=== PATIENT | male | born 1960 | race Caucasian/White ===

== ENCOUNTER → 2020-04-05 11:44 | Outpatient (BNVA) | payer BC, SELFPAY | PROVIDERS: PCP Family Medicine; Visit Provider Internal Medicine | DX: Z76.89 Persons encountering health services in other specified circumstances (principal) ==

== ENCOUNTER 2020-06-10 11:12 | Emergency (ER) | payer BC, SELFPAY ==
[2020-06-10 11:38] VITALS: BP 168/92; BP 180/87; PULSE 92; PULSE 94; RESP 16; TEMP 37; O2SAT 97; O2SAT 99; BMI 51.7
--- NOTE | 2020-06-10 11:53 | XR_ITS ---
EXAMINATION: XR ANKLE, BILATERAL CLINICAL INFORMATION: Status post fall with bilateral ankle pain and swelling COMPARISON: None TECHNIQUE: 3 views of each ankle performed. FINDINGS: RIGHT ANKLE: Moderate soft tissue swelling is identified anteriorly. A lucency is seen through the lateral aspect of the fibula in keeping with a nondisplaced distal fibular fracture. Corticated densities are seen at the medial malleolus likely related to prior trauma. Posterior calcaneal spurs are demonstrated. LEFT ANKLE: Moderate lateral and anterior soft tissue swelling is identified. Ankle mortise is symmetric. On the AP view only, there is a subtle lucency over the distal fibula which is nonspecific but a occult fracture is not excluded. Additionally there is a large corticated density at the medial malleolus and a small corticated density at the lateral malleolus presumably reflective of prior trauma. Talar dome is unremarkable. Posterior and plantar calcaneal spurs are seen. XR/XR ankle RT min 3V IMPRESSION: Moderate soft tissue swelling bilaterally. Right lateral malleolus demonstrates a nondisplaced oblique fracture. Evidence of corticated nonacute ossific densities at the medial malleolus. Left ankle shows no definite acute fracture. An equivocal lucency is seen over the distal fibula on one view only. Corticated densities are seen adjacent to the malleoli presumably reflective of prior trauma. Follow-up radiographs can be obtained as appropriate.
--- NOTE | 2020-06-10 11:53 | XR_ITS ---
EXAMINATION: XR ANKLE, BILATERAL CLINICAL INFORMATION: Status post fall with bilateral ankle pain and swelling COMPARISON: None TECHNIQUE: 3 views of each ankle performed. FINDINGS: RIGHT ANKLE: Moderate soft tissue swelling is identified anteriorly. A lucency is seen through the lateral aspect of the fibula in keeping with a nondisplaced distal fibular fracture. Corticated densities are seen at the medial malleolus likely related to prior trauma. Posterior calcaneal spurs are demonstrated. LEFT ANKLE: Moderate lateral and anterior soft tissue swelling is identified. Ankle mortise is symmetric. On the AP view only, there is a subtle lucency over the distal fibula which is nonspecific but a occult fracture is not excluded. Additionally there is a large corticated density at the medial malleolus and a small corticated density at the lateral malleolus presumably reflective of prior trauma. Talar dome is unremarkable. Posterior and plantar calcaneal spurs are seen. XR/XR ankle LT min 3V IMPRESSION: Moderate soft tissue swelling bilaterally. Right lateral malleolus demonstrates a nondisplaced oblique fracture. Evidence of corticated nonacute ossific densities at the medial malleolus. Left ankle shows no definite acute fracture. An equivocal lucency is seen over the distal fibula on one view only. Corticated densities are seen adjacent to the malleoli presumably reflective of prior trauma. Follow-up radiographs can be obtained as appropriate.
[2020-06-10] MEDS: Acetaminophen 325 MG TABLET 975 MG PO (12:22)
--- NOTE | 2020-06-10 12:43 | ED_ITS ---
HPI - Fall General Chief Complaint: Fall Stated Complaint: fall, bilateral ankle pain Time Seen by Provider: 06/10/20 11:39 Source: patient and EMS Mode of arrival: EMS Limitations: no limitations History of Present Illness HPI Narrative: 59-year-old male presenting to the ED after he had a mechanical fall at home this morning at around 07:45 with bilateral ankle pain/swelling. He reports that he was walking on the steps and must of missed a step and fell forward twisting his both ankles. He called EMS and initially refused transport at that time due to he was able to walk after EMS helped him up from the floor and he went to run some errands. Although while running errands he had worsening pain to bilateral ankles therefore he decided to call EMS and come here to the ER. Denies any head injury or loss of consciousness. Reports he is on aspirin no other blood thinners. Denies any other injuries complaints or concerns. Denies preceding symptoms prior to the fall. Related Data Previous Rx's Medication Instructions Recorded theophylline 300 mg 300 mg PO Q12H #60 tab 03/20/20 tablet,extended release,12 hr albuterol sulfate 90 mcg/actuation 2 puff INHALATION Q4-6H PRN #18 g 04/05/20 aerosol inhaler apple cider vinegar 500 mg tablet 500 mg PO DAILY #30 tab 04/05/20 aspirin 81 mg tablet,delayed 81 mg PO DAILY #30 tab 04/05/20 release atorvastatin 10 mg tablet 10 mg PO DAILY #30 tab 04/05/20 fish, borage, flaxseed oils-omega 1 cap PO DAILY #30 cap 04/05/20 3,6,9 cb #1 400 mg-400 mg-400 mg cap ginseng 250 mg capsule 250 mg PO BID #60 cap 04/05/20 lisinopril 10 mg tablet 10 mg PO DAILY #30 tab 04/05/20 lysine 1,000 mg tablet 1,000 mg PO DAILY #30 tab 04/05/20 montelukast 10 mg tablet 10 mg PO DAILY #30 tab 04/05/20 multivitamin 1 tab PO DAILY #30 tab 04/05/20 nystatin 100,000 unit/mL oral 100,000 unit PO QID #250 ml 04/05/20 suspension salmeterol 50 mcg/dose blister 1 inh INHALATION BID #60 ea 11/05/20 powder for inhalation sildenafil 100 mg tablet 100 mg PO DAILY PRN #10 tab 04/05/20 testosterone 20.25 mg/1.25 gram 4 pump TOPICAL DAILY #75 g 04/05/20 (1.62 %) transdermal gel pump tiotropium bromide 2.5 2 puff INHALATION DAILY #4 g 04/05/20 mcg/actuation mist for inhalation acetaminophen-codeine 1 tab PO Q8H PRN #14 tab 06/10/20 ibuprofen 800 mg PO Q8H PRN #14 tab 06/10/20 Allergies Allergy/AdvReac Type Severity Reaction Status Date / Time No Known Allergies Allergy Verified 04/05/20 11:56 [No Known Allergies*] Review of Systems Review of Systems: Constitutional : No Fever, No Chills ENT/Mouth : No Ear Pain, No Hoarseness, No sore throat Eyes: No Eye Pain, No Swelling, No Redness, No Foreign Body Cardiovascular : No Chest Pain, No SOB Respiratory : No Cough, No Dyspnea Gastrointestinal : No Nausea, No Vomiting, No Diarrhea, No abdominal Pain Genitourinary : No Dysuria, No Hematuria Musculoskeletal : + joint pain/swelling, No Myalgias Skin : No Skin lacerations, No rash Neuro : No Weakness, No Numbness, No Paresthesias, No Loss of Consciousness, No Dizziness, No Headache Psych : No Anxiety/Panic, No Depression Heme/Lymph: no easy bruising, no Lymphadenopathy Endocrine : No Polyuria, No Polydipsia Yes all other systems are reviewed and are negative PMFSH Past Medical History Attestation statement: The following information was validated with the patient. Medical History Back pain COPD (chronic obstructive pulmonary disease) Emphysema lung Erectile disorder due to medical condition in male HLD (hyperlipidemia) HTN (hypertension) Hypogonadism male Low serum testosterone Morbid obesity ALIN (obstructive sleep apnea) ALIN on CPAP Social History Social History Smoking Status: Current every day smoker Cigarettes Per Day: 5 Advance Directives: No Advance Directives Information Provided: No Physical Exam Vital Signs: Vital Signs: Last Vital Signs Temp 98.6 F 06/10/20 11:38 Pulse 94 06/10/20 11:38 Resp 16 06/10/20 11:38 BP 180/87 H 06/10/20 11:38 Pulse Ox 97 06/10/20 11:38 Body Mass Index 51.7 Vital signs have been reviewed as normal and appeared to be correct. Blood pressure hypertensive. Heart rate normal. Respiration rate normal. Temperature normal. Oxygen saturation normal. Appearance: Alert. Oriented X3. No acute distress. Head: Normal external exam. Normocephalic. Atraumatic. Able to rotate head bilaterally. Eyes: PERRLA. EOMI. No nystagmus noted. Conjunctiva and sclera normal. Eyelids normal. Corneal reflex normal. ENT: Hearing normal. Pharynx normal. Moist mucous membranes. No trismus noted. No drooling noted. No muffled voice noted. Neck: Normal inspection. Neck supple. FROM. No adenopathy. No meningeal signs. CVS: Normal heart rate and rhythm. Heart sound normal. No murmurs noted. Pulses normal throughout. Respiratory: No respiratory distress. Painless inspiration. Breath sounds normal. No wheezes/rales/rhonchi noted. Chest nontender. No accessory muscle usage noted or decreased air movement noted. Back: Full range of motion noted. Skin: Skin warm and dry. Normal skin color. Normal skin turgor. No rashes/lesions/lacerations noted. Extremities: + 2 b/l lower extremity edema. No calf tenderness noted. To right ankle patient has tenderness to palpation of the dorsal/lateral aspect with moderate soft tissue swelling. No obvious deformities. Full range of motion noted. No laxity noted. To the left ankle patient has tender to palpation of the dorsal lateral aspect with moderate soft tissue swelling. No obvious defor mities. Patient has full range of motion no laxity noted to the left ankle. Otherwise all other Extremities exhibit normal range of motion and nontender. Able to shrug shoulders bilaterally and keep up against resistance. Neuro: Oriented X 3. No motor deficit. No sensory deficit. Reflexes normal. Moving all extremities. No focal motor deficits. Cranial nerves II-XI intact bilaterally. Facial strength normal. Normal cognition. Speech normal. Strength 5/5 throughout. Muscle tone normal throughout. Course Course Course Narrative: 12:45pm - 59-year-old male presenting to the ED after he had a mechanical fall at home this morning at around 07:45 with bilateral ankle pain/swelling. - Concern for fracture vs sprain vs CHF Plan: Labs including BNP, bilateral ankle x-rays. Provide 975 mg of Tylenol as patient refused anything stronger then re-evaluate. Reevaluation(s) Reevaluation #1: - it appears patient has right lateral malleolus nondisplaced oblique fracture. Left ankle shows no definite acute fracture although lucency seen over distal fibula on only one view and patient is tender there and has moderate soft tissue swelling and denies any previous injuries therefore most likely patient has bilateral ankle fractures. I consulted with GOPAL Pineda from orthopedics and she recommending placing the patient into walking boots and provide symptomatic treatment along with weight-bearing as tolerated and to follow up with them within a week. I offered the patient short-term rehab although he reports that he will be fine at home with the bilateral walking boot along with symptomatic treatment. Therefore awaiting labs at this time. Time: 13:06 Reevaluation #2: - patient has an elevated white blood cell count [id number] although no signs of infection most likely reactive although I instructed the patient to have this followed up with primary care provider within the next few weeks and he reported to me he will be having blood work in July.Normal limits including BNP. Will DC home with bilateral walking boot/crutches and symptomatic treatment along with a referral to Orthopedics and to follow up with primary care provider. Patient understands agrees the plan. Time: 13:54 MDM - Fall Medical Records Attestation: I reviewed the patient's medical records. Lab Data Attestation: I reviewed the patient's lab results. Result diagrams: 06/10/20 12:46 06/10/20 12:46 Labs: Lab Results 06/10/20 06/10/20 06/10/20 Range/Units 12:46 12:46 12:46 WBC 19.0 H (4.8-10.8) X10*3/uL RBC 6.06 H (4.60-5.80) X10*6/uL Hgb 13.8 L (14.0-18.0) g/dl Hct 45.3 (42-52) % MCV 74.8 L (80-98) fL MCH 22.8 L (27.0-33.0) pg MCHC 30.5 L (31.0-36.0) g/dl RDW 18.6 H (11.0-16.0) % Plt Count 332 (160-400) X10*3/uL MPV 8.9 L (9.4-12.4) fL Immature Gran % (Auto) 0.5 H (0.0-0.4) % Neut % (Auto) 76.4 H (45-73) % Lymph % (Auto) 15.5 L (20-40) % Mccracken % (Auto) 5.7 (2-11) % Eos % (Auto) 1.5 (0-4) % Baso % (Auto) 0.4 (0-2) % Lymph # (Auto) 3.0 (1.2-4.9) X10*3/uL Mccracken # (Auto) 1.1 (0.1-1.2) X10*3/uL Eos # (Auto) 0.3 (0.0-0.4) X10*3/uL Baso # (Auto) 0.1 (0.0-0.2) X10*3/uL Abs Immat Gran (auto) 0.10 H (0.00-0.03) X10*3/uL Absolute Neuts (auto) 14.5 H (2.0-8.3) X10*3/uL Absolute Nucleated RBC 0.000 (0.0-0.012) X10*3/uL Nucleated RBC % (auto) 0.0 (0.0-0.2) /100WBC Hold Blue Top SEE NOTE Sodium 141 (135-145) mmol/L Potassium 4.7 (3.3-5.1) mmol/l Chloride 101 (96-108) mmol/L Carbon Dioxide 29 (22-29) mmol/L Anion Gap 16 (12-20) BUN 16 (9-16) mg/dL Creatinine 0.83 (0.5-1.4) mg/dL Estim Creat Clear Calc 141.7 Estimated GFR > 60 Random Glucose 107 (60-115) mg/dL Calcium 9.2 (8.4-10.2) mg/dL B-Natriuretic Peptide (<100) pg/mL 06/10/20 Range/Units 12:46 WBC (4.8-10.8) X10*3/uL RBC (4.60-5.80) X10*6/uL Hgb (14.0-18.0) g/dl Hct (42-52) % MCV (80-98) fL MCH (27.0-33.0) pg MCHC (31.0-36.0) g/dl RDW (11.0-16.0) % Plt Count (160-400) X10*3/uL MPV (9.4-12.4) fL Immature Gran % (Auto) (0.0-0.4) % Neut % (Auto) (45-73) % Lymph % (Auto) (20-40) % Mccracken % (Auto) (2-11) % Eos % (Auto) (0-4) % Baso % (Auto) (0-2) % Lymph # (Auto) (1.2-4.9) X10*3/uL Mccracken # (Auto) (0.1-1.2) X10*3/uL Eos # (Auto) (0.0-0.4) X10*3/uL Baso # (Auto) (0.0-0.2) X10*3/uL Abs Immat Gran (auto) (0.00-0.03) X10*3/uL Absolute Neuts (auto) (2.0-8.3) X10*3/uL Absolute Nucleated RBC (0.0-0.012) X10*3/uL Nucleated RBC % (auto) (0.0-0.2) /100WBC Hold Blue Top Sodium (135-145) mmol/L Potassium (3.3-5.1) mmol/l Chloride (96-108) mmol/L Carbon Dioxide (22-29) mmol/L Anion Gap (12-20) BUN (9-16) mg/dL Creatinine (0.5-1.4) mg/dL Estim Creat Clear Calc Estimated GFR Random Glucose (60-115) mg/dL Calcium (8.4-10.2) mg/dL B-Natriuretic Peptide 18 (<100) pg/mL Imaging Data Bilateral ankle : Attestation: I personally reviewed and interpreted this imaging study as follows: Radiologist's impression: [address] [address] XRay Report Signed Patient: Tushar Caceres TMR#: [id number] : 1960Acct:[id number] Age/Sex: 59 / MADM Date: 06/10/20 Loc: [facility].ED Attending Dr: Ordering Physician: DANG CRAIG Date of Service: 06/10/20 Procedure(s): XR ankle RT min 3V Accession Number(s): [id number] cc: DANG CRAIG~ EXAMINATION: XR ANKLE, BILATERAL CLINICAL INFORMATION: Status post fall with bilateral ankle pain and swelling COMPARISON: None TECHNIQUE: 3 views of each ankle performed. FINDINGS: RIGHT ANKLE: Moderate soft tissue swelling is identified anteriorly. A lucency is seen through the lateral aspect of the fibula in keeping with a nondisplaced distal fibular fracture. Corticated densities are seen at the medial malleolus likely related to prior trauma. Posterior calcaneal spurs are demonstrated. LEFT ANKLE: Moderate lateral and anterior soft tissue swelling is identified. Ankle mortise is symmetric. On the AP view only, there is a subtle lucency over the distal fibula which is nonspecific but a occult fracture is not excluded. Additionally there is a large corticated density at the medial malleolus and a small corticated density at the lateral malleolus presumably reflective of prior trauma. Talar dome is unremarkable. Posterior and plantar calcaneal spurs are seen. XR/XR ankle RT min 3V IMPRESSION: Moderate soft tissue swelling bilaterally. Right lateral malleolus demonstrates a nondisplaced oblique fracture. Evidence of corticated nonacute ossific densities at the medial malleolus. Left ankle shows no definite acute fracture. An equivocal lucency is seen over the distal fibula on one view only. Corticated densities are seen adjacent to the malleoli presumably reflective of prior trauma. Follow-up radiographs can be obtained as appropriate. Discharge Plan Discharge Clinical Impression: Dependent edema, Fracture of malleolus, right ankle, closed, Ankle fracture, left, Fall Patient Disposition: Home, Self-Care Instructions: Ankle Fracture (ED), Walking Boot (ED) Prescriptions: New ibuprofen 800 mg tablet 800 mg PO Q8H PRN (Reason: pain) Qty: 14 RF: 0 acetaminophen-codeine 300-30 mg tablet 1 tab PO Q8H PRN (Reason: pain) Qty: 14 RF: 0 No Action theophylline 300 mg tablet extended release 12 hr 300 mg PO Q12H Qty: 60 RF: 2 Referrals: Zoya Riggins MD [Physician] - 2 days (Call tomorrow for an appointment wi thin 1 week) David Smith MD [Primary Care Provider] - 2 days Stand Alone Forms: Work/School Release Print Language: Bulgarian
[2020-06-10 12:51] LABS: Basophils Absolute Auto 0.1 X10*3/uL (0.0-0.2); Basophils Percent Auto 0.4 % (0-2); Eosinophils Absolute Auto 0.3 X10*3/uL (0.0-0.4); Eosinophils Percent Auto 1.5 % (0-4); Hematocrit 45.3 % (42-52); Hemoglobin 13.8 g/dl (14.0-18.0); Imm Gran Pct Auto 0.5 % (0.0-0.4); Lymphocytes Percent Auto 15.5 % (20-40); MANUAL DIFF FLAG NO; Mean Corpuscular HGB Conc 30.5 g/dl (31.0-36.0); Mean Corpuscular Hemoglobin 22.8 pg (27.0-33.0); Mean Corpuscular Volume 74.8 fL (80-98); Mean Platelet Volume 8.9 fL (9.4-12.4); Monocytes Absolute Auto 1.1 X10*3/uL (0.1-1.2); Monocytes Percent Auto 5.7 % (2-11); Neutrophils Absolute Auto 14.5 X10*3/uL (2.0-8.3); Neutrophils Percent Auto 76.4 % (45-73); Platelet Count 332 X10*3/uL (160-400); Red Blood Count 6.06 X10*6/uL (4.60-5.80); Red Cell Distribution Width 18.6 % (11.0-16.0)
[2020-06-10 13:20] LABS: Anion Gap 16 (12-20); Blood Urea Nitrogen 16 mg/dL (9-16); Calcium 9.2 mg/dL (8.4-10.2); Carbon Dioxide 29 mmol/L (22-29); Chloride 101 mmol/L (96-108); Creatinine Clr Calc Pharmacy 141.7; Estimated Glomerular Filt Rate > 60; Glucose Random 107 mg/dL (60-115); Potassium 4.7 mmol/l (3.3-5.1); Sodium 141 mmol/L (135-145)
[2020-06-10 13:28] LABS: B Type Natriuretic Peptide 18 pg/mL (<100)
== END 2020-06-11 11:32 | disposition home or self-care (01) ==
PROVIDERS: Physician Assistant Medical; Emergency Provider Emergency Medicine; PCP Family Medicine
DX: S82.892A Other fracture of left lower leg, initial encounter for closed fracture (principal); S82.51XA Displaced fracture of medial malleolus of right tibia, initial encounter for closed fracture; I10 Essential (primary) hypertension; R60.0 Localized edema; M25.572 Pain in left ankle and joints of left foot; W10.9XXA Fall (on) (from) unspecified stairs and steps, initial encounter; Y93.9 Activity, unspecified; Y92.009 Unspecified place in unspecified non-institutional (private) residence as the place of occurrence of the external cause; Y99.9 Unspecified external cause status; Z79.899 Other long term (current) drug therapy; F17.200 Nicotine dependence, unspecified, uncomplicated; Z71.6 Tobacco abuse counseling
CPT/HCPCS: 36415; 73610; 80048; 83880; 85025; 99283

== ENCOUNTER → 2020-06-18 13:04 | Outpatient (BNVA) | payer BC, SELFPAY | PROVIDERS: PCP Family Medicine; Visit Provider Physician Assistant ==

== ENCOUNTER 2020-07-03 08:51 | Outpatient (REF) | payer BC, SELFPAY ==
[2020-07-03 10:51] LABS: Alanine Aminotransferase 24 U/L (0-40); Anion Gap 15 (12-20); Blood Urea Nitrogen 18 mg/dL (9-16); Carbon Dioxide 28 mmol/L (22-29); Chloride 99 mmol/L (96-108); Estimated Glomerular Filt Rate > 60; Potassium 4.7 mmol/L (3.3-5.1); Sodium 137 mmol/L (135-145)
[2020-07-06 15:56] LABS: Testosterone, Total 547 ng/dL (250-1100)
== END 2020-07-03 08:52 | disposition home or self-care (01) ==
LOC: HO.10HDL 08:51
PROVIDERS: Absent Provider Urology; Visit Provider Family Medicine
DX: I10 Essential (primary) hypertension (principal); E78.00 Pure hypercholesterolemia, unspecified; Z79.899 Other long term (current) drug therapy; E29.1 Testicular hypofunction
CPT/HCPCS: 36415; 80051; 82550; 82565; 84403; 84460; 84520

== ENCOUNTER 2020-07-11 12:39 | Outpatient (REF) | payer BC, SELFPAY ==
--- NOTE | ~2020-07-11 | XR_ITS ---
EXAMINATION: XR ANKLE, BILATERAL CLINICAL INFORMATION: Fractures. Pain. COMPARISON: Bilateral ankle 06/10/2020. TECHNIQUE: 3 views each ankle. FINDINGS: LEFT ANKLE: There is moderate lateral malleolar soft tissue swelling. There are old fracture fragments along the medial malleolus. No visible acute fracture seen. The ankle mortise and subtalar joints are normal. A small calcaneal heel and moderate retrocalcaneal enthesophytes are seen. The soft tissues are normal. RIGHT ANKLE: There is a healed distal fibular fracture with callus formation. There are old medial malleolar fracture fragments. Moderate right lateral malleolar soft tissue swelling seen. Moderate-sized calcaneal heel and retrocalcaneal enthesophytes are seen. There is moderate anterior ankle soft tissue swelling. XR/XR ankle RT min 3V IMPRESSION: Slowly healing right lateral malleolar fracture with improved soft tissue swelling. There are old medial malleolar fracture fragments. There is moderate right ankle joint soft tissue swelling, stable. Calcaneal heel and retrocalcaneal enthesophytes are stable. There are old fracture fragments along the left ankle medial malleolus. No acute fracture seen. There is moderate lateral malleolar soft tissue swelling which is stable.
--- NOTE | ~2020-07-11 | XR_ITS ---
EXAMINATION: XR ANKLE, BILATERAL CLINICAL INFORMATION: Fractures. Pain. COMPARISON: Bilateral ankle 06/10/2020. TECHNIQUE: 3 views each ankle. FINDINGS: LEFT ANKLE: There is moderate lateral malleolar soft tissue swelling. There are old fracture fragments along the medial malleolus. No visible acute fracture seen. The ankle mortise and subtalar joints are normal. A small calcaneal heel and moderate retrocalcaneal enthesophytes are seen. The soft tissues are normal. RIGHT ANKLE: There is a healed distal fibular fracture with callus formation. There are old medial malleolar fracture fragments. Moderate right lateral malleolar soft tissue swelling seen. Moderate-sized calcaneal heel and retrocalcaneal enthesophytes are seen. There is moderate anterior ankle soft tissue swelling. XR/XR ankle LT min 3V IMPRESSION: Slowly healing right lateral malleolar fracture with improved soft tissue swelling. There are old medial malleolar fracture fragments. There is moderate right ankle joint soft tissue swelling, stable. Calcaneal heel and retrocalcaneal enthesophytes are stable. There are old fracture fragments along the left ankle medial malleolus. No acute fracture seen. There is moderate lateral malleolar soft tissue swelling which is stable.
== END 2020-07-11 12:40 | disposition home or self-care (01) ==
LOC: HO.HOSX 12:39
PROVIDERS: Visit Provider Physician Assistant
DX: S82.839A Other fracture of upper and lower end of unspecified fibula, initial encounter for closed fracture (principal); X58.XXXA Exposure to other specified factors, initial encounter; Y93.9 Activity, unspecified; Y92.9 Unspecified place or not applicable; Y99.8 Other external cause status; J43.9 Emphysema, unspecified; I10 Essential (primary) hypertension; E78.5 Hyperlipidemia, unspecified; E66.01 Morbid (severe) obesity due to excess calories; G47.33 Obstructive sleep apnea (adult) (pediatric); F17.210 Nicotine dependence, cigarettes, uncomplicated; Z99.89 Dependence on other enabling machines and devices
CPT/HCPCS: 73610

== ENCOUNTER → 2020-08-08 11:32 | Outpatient (BNVA) | payer BC, SELFPAY | PROVIDERS: PCP Family Medicine; Visit Provider Internal Medicine ==

== ENCOUNTER → 2020-08-21 13:26 | Outpatient (BNVA) | payer BC, SELFPAY | PROVIDERS: PCP Family Medicine; Visit Provider Urology ==

== ENCOUNTER 2020-11-13 07:40 | Outpatient (REF) | payer BC, SELFPAY ==
[2020-11-13 09:25] LABS: Hematocrit 44.1 % (42-52); Hemoglobin 13.1 g/dl (14.0-18.0); Mean Corpuscular HGB Conc 29.7 g/dl (31.0-36.0); Mean Corpuscular Volume 74.1 fL (80-98); Mean Platelet Volume 9.8 fL (9.4-12.4); Platelet Count 352 X10*3/uL (160-400); Red Blood Count 5.95 X10*6/uL (4.60-5.80); Red Cell Distribution Width 19.4 % (11.0-16.0); White Blood Count 15.5 X10*3/uL (4.8-10.8)
[2020-11-13 09:39] LABS: Estimated Average Glucose 160 mg/dL; Hemoglobin A1c % 7.2 %
[2020-11-13 09:42] LABS: Alanine Aminotransferase 20 U/L (0-40); Aspartate Amino Transferase 17 U/L (5-37); Cholesterol 130 mg/dL; Glucose Fasting 138 mg/dL (60-99); HDL Cholesterol 33 mg/dL; LDL Cholesterol Calculated 85 mg/dl; Triglycerides 61 mg/dL
[2020-11-13 10:09] LABS: Prostate Specific Antigen 0.33 ng/mL (<0.05-4.0)
[2020-11-14 06:41] LABS: Theophylline 6.6
[2020-11-18 18:12] LABS: Testosterone, Total 201 ng/dL (250-1100)
== END 2020-11-13 07:41 | disposition home or self-care (01) ==
LOC: HO.10HDL 07:40
PROVIDERS: Urology; Visit Provider Family Medicine
DX: E29.1 Testicular hypofunction (principal); E78.00 Pure hypercholesterolemia, unspecified; R73.9 Hyperglycemia, unspecified; N40.1 Benign prostatic hyperplasia with lower urinary tract symptoms; N13.8 Other obstructive and reflux uropathy; Z79.899 Other long term (current) drug therapy
CPT/HCPCS: 36415; 80061; 80198; 82947; 83036; 84153; 84403; 84450; 84460; 85027

== ENCOUNTER → 2020-12-24 11:20 | Outpatient (BNVA) | payer BC, SELFPAY | PROVIDERS: PCP Family Medicine; Visit Provider Internal Medicine ==

== ENCOUNTER 2021-02-11 07:44 | Outpatient (REF) | payer BC, SELFPAY ==
[2021-02-11 11:16] LABS: Estimated Average Glucose 166 mg/dL; Hemoglobin A1c % 7.4 %
[2021-02-11 11:31] LABS: Creatinine Urine 96.36 mg/dL; Microalbum/Creatinine Ratio Ur 191.9 ug/mg cr
[2021-02-11 11:36] LABS: Anion Gap 14 (12-20); Blood Urea Nitrogen 13 mg/dL (9-16); Carbon Dioxide 27 mmol/L (22-29); Chloride 101 mmol/L (96-108); Estimated Glomerular Filt Rate > 60; Glucose Fasting 137 mg/dL (60-99); Sodium 137 mmol/L (135-145)
== END 2021-02-11 07:45 | disposition home or self-care (01) ==
LOC: HO.10HDL 07:44
PROVIDERS: Visit Provider Family Medicine
DX: I10 Essential (primary) hypertension (principal); E11.9 Type 2 diabetes mellitus without complications
CPT/HCPCS: 36415; 80051; 82043; 82565; 82947; 83036; 84520

== ENCOUNTER → 2021-02-22 12:17 | Outpatient (BNVA) | payer BC, SELFPAY | PROVIDERS: PCP Family Medicine; Visit Provider Urology ==

== ENCOUNTER 2021-05-03 14:27 | Outpatient (REF) | payer BC, SELFPAY ==
--- NOTE | ~2021-05-03 | CT_ITS ---
EXAMINATION: CT CHEST SCREENING CLINICAL INFORMATION: Nicotine dependence. 42 pack-year history. Current smoker. COMPARISON: Routine chest x-ray of 11/07/2016 TECHNIQUE: Multidetector volumetric CT imaging of the chest is performed without contrast using low dose technique. Additional 2-D coronal and sagittal reformatted images and axial 3-D maximum intensity projection (MIP) images are generated on the CT workstation. This CT examination was performed using dose optimization techniques as appropriate, variously including the following: *Automated exposure control *Adjustment of mA and/or kV according to patient size (this includes techniques or standardized protocols for targeted exams where dose is matched to indication/reason for exam; i.e. extremities or head) *Use of iterative reconstruction technique DLP: 103 mGy-cm FINDINGS: LUNGS: There are moderate changes of centrilobular and paraseptal emphysema predominantly within the upper lobes. Central airways are patent. There is bronchial wall thickening seen bilaterally without evidence of bronchiectasis. No confluent parenchymal disease is seen. There are some scattered sub-4 mm densities present. There is a calcified granuloma within the right upper lobe. There is a 7 mm noncalcified density seen within the dorsal aspect of the left upper lobe on image 119 of 481 in series #5. There is a 5 mm filling defect seen within a left lower lobe subsegmental bronchus likely related to mucus plugging on image 342 of 481. MEDIASTINUM: Heart normal size. Coronary artery calcification present. There is calcification of the mitral annulus. No pericardial effusion. No thoracic aortic aneurysm. There is a 1 cm short axis right paratracheal lymph node present but containing fat. No definite hilar lymphadenopathy is appreciated. PLEURA: No pleural effusion or mass is seen. There is prominent bilateral endothoracic fat deposition present. AXILLA: No lymphadenopathy. UPPER ABDOMEN: Unremarkable. OSSEOUS STRUCTURES: No suspicious destructive bony lesion identified. CT/CT lung screening IMPRESSION: 7 mm left upper lobe noncalcified lesion. Old granulomatous disease. Bronchial wall thickening. Moderate changes of centrilobular and paraseptal emphysema. 5 mm filling defect within left lower lobe bronchus likely related to mucus plugging. ASSESSMENT: Lung-RADS category 3: Probably Benign. RECOMMENDATION: Short interval 6-month followup low-dose CT chest.
== END 2021-05-03 14:28 | disposition home or self-care (01) ==
LOC: HO.CT 14:27
PROVIDERS: PCP Family Medicine; Visit Provider Physician Assistant Medical
DX: Z12.2 Encounter for screening for malignant neoplasm of respiratory organs (principal); F17.210 Nicotine dependence, cigarettes, uncomplicated
CPT/HCPCS: 71271; G0296

== ENCOUNTER → 2021-05-17 12:41 | Outpatient (REF) | payer BC, SELFPAY ==
--- NOTE | 2021-05-17 12:47 | CA_ITS ---
Transthoracic Echocardiogram Patient (Last, First, Middle): Tushar Caceres T Gender: Male Date of : 1960 Age: 60 Procedure Date: 05/17/2021 Procedure Type: Transthoracic Echocardiogram Location: OP Height: 175.26 cm Weight: 158.76 kg BSA: 2.62 m2 Heart Rate: bpm BP: 138 / 90 mmHg Nailer Machine: Referring MD: David Smith MD Professional Programmer Analyst: Salvador Villasenor MD Symptoms: SOB, EDEMA, COPD Study Quality: Technically Difficult due to obesity ECG Rhythm: Sinus Conclusions: - 1. Technically limited study despite use of contrast 2. Normal LV systolic function with moderate LVH with impaired relaxation filling pattern and elevated filling pressures 3. Mild aortic stenosis Findings Procedure Information Contrast agent, definity, is being given per protocol without apparent complications. Left Ventricle Normal left ventricular cavity size. There is moderately increased left ventricular wall thickness. The left ventricular systolic function is normal. The visually estimated ejection fraction is between 60-65%. Spectral Doppler is indicative of an impaired relaxation filling pattern. Elevated filling pressures. E/E prime ratio is >15, consistent with elevated filling pressures. Right Ventricle The right ventricle was not well visualized. Atria The left atrium is normal in size. Interatrial shunt cannot be excluded. The right atrium was not well visualized. Aortic Valve The aortic valve was not well visualized. There is mild aortic valve stenosis. The peak aortic gradient is 25 mmHg.The mean gradient is 14 mmHg. The aortic valve area is 2.08 cm2. There is no aortic valve regurgitation. Mitral Valve The mitral valve was not well visualized. There is moderate mitral annular calcification. There is no mitral valve regurgitation. Pulmonic Valve The pulmonic valve was not well visualized. Tricuspid Valve The tricuspid valve was not well visualized. Great Vessels The aorta was not well visualized. The pulmonary artery was not well visualized. Venous The inferior vena cava was not well visualized. Pericardium/Pleural The pericardium was not well visualized. Prior Study Comparison Changes noted compared to prior study dated: 08/07/2015. LVH is noted on this study. Mild aortic stenosis is probably present Measurements 2D Linear Measurements IVSd: 1.68 0.6-0.9/0.6-1.0 cm LVIDd: 4.05 3.9-5.3/4.2-5.9 cm LVIDd Index: 1.55 2.4-3.2/2.2-3.1 cm/m2 LVIDs: 2.67 2.0-3.6 cm LVPWd: 1.74 0.7-1.1 cm Ao Root: 3.40 2.1-3.5 cm LA Diam: 3.10 2.7-3.8/3.0-4.0 cm LAIDs Index: 1.18 1.5-2.3 cm/m2 LV Mass: 364.42 67-162/88-224 g LV Mass Index: 139.09 43-95/49-115 g/m2 LVOT Diam: 2.20 3.0+(-)1.3 cm Mitral Valve MV VTI: 0.51 MV Pk Gilles: 1.19 MV Mn Gilles: 0.66 MV Pk Grad: 6.00 MV Mn Grad: 2.00 MV Pk E: 0.81 MV PK A: 1.20 MV Decel Time: 241.00 E/A: 0.70 E'Lateral: 3.81 E'Medial: 4.35 E/E' Med: 18.50 E/E' Lat: 21.20 PHT: 71.00 MVA PHT: 3.10 MVA Continuity: 1.87 Decel Banner: 3.34 Aortic Valve AoV Pk Gilles: 2.51 AoV Mn Gilles: 1.70 AoV VTI: 0.45 AoV Pk Grad: 25.00 Aov Mn Grad: 14.00 TIA Cont.VTI: 2.08 LVOT LVOT Pk Gilles: 1.24 LVOT Mn Gilles: 0.84 LVOT VTI: 0.25 LVOT Pk Grad: 6.00 LVOT Mn Grad: 3.00 LVOT Diam: 2.20 LVOT Area: 3.80 Diastolic Function MV Pk E: 0.81 MV Pk A: 1.20 E/A: 0.70 E'Medial: 4.35 E/E' Med: 18.50 E' Laterial: 3.81 E/E' Lat: 21.20 Tricuspid Valve TR Pk Gilles: 1.65 TR Pk Grad: 11.00 Great Vessels Aorta Ao Root-2D: 3.40 2.0-3.7 cm Ao Asc: 3.10 2.1-3.4 cm Pulmonary Valve PV Pk Gilles: 1.15 Peak PV Grad: 5.00 Updated in Other Vendor System with Status of Final Salvador Villasenor MD electronically signed on 05/18/2021 11:25:38 AM with status of Final
== END ==
LOC: HO.CARD 12:41
PROVIDERS: Visit Provider Family Medicine
DX: R06.02 Shortness of breath (principal); R60.1 Generalized edema; J44.9 Chronic obstructive pulmonary disease, unspecified
CPT/HCPCS: 93306; Q9957

== ENCOUNTER 2021-05-29 07:37 | Outpatient (REF) | payer BC, SELFPAY ==
[2021-05-29 10:08] LABS: Estimated Average Glucose 163 mg/dL; Hemoglobin A1c % 7.3 %
[2021-05-29 10:16] LABS: Glucose Fasting 137 mg/dL (60-99)
== END 2021-05-29 07:38 | disposition home or self-care (01) ==
LOC: HO.10HDL 07:37
PROVIDERS: Visit Provider Family Medicine
DX: E11.9 Type 2 diabetes mellitus without complications (principal)
CPT/HCPCS: 36415; 82947; 83036

== ENCOUNTER → 2021-06-10 10:50 | Outpatient (BNVA) | payer BC, SELFPAY | PROVIDERS: PCP Family Medicine; Visit Provider Internal Medicine ==

== ENCOUNTER → 2021-06-17 09:46 | Outpatient (BNVA) | payer BC, SELFPAY | PROVIDERS: PCP Family Medicine; Visit Provider Internal Medicine ==

== ENCOUNTER 2021-08-08 07:44 | Outpatient (REF) | payer BC, SELFPAY ==
[2021-08-08 10:35] LABS: Hematocrit 45.3 % (42.0-52.0); Hemoglobin 13.5 g/dl (14.0-18.0); Mean Corpuscular HGB Conc 29.8 g/dl (31.0-36.0); Mean Corpuscular Hemoglobin 21.9 pg (27.0-33.0); Mean Corpuscular Volume 73.4 fL (80.0-98.0); Mean Platelet Volume 10.4 fL (9.4-12.4); Platelet Count 308 X10*3/uL (160-400); Red Blood Count 6.17 X10*6/uL (4.60-5.80); Red Cell Distribution Width 19.7 % (11.0-16.0); White Blood Count 16.4 X10*3/uL (4.8-10.8)
[2021-08-08 11:40] LABS: Prostate Specific Antigen 0.41 ng/mL (<0.05-4.0)
[2021-08-12 11:16] LABS: Testosterone, Total 354 ng/dL (250-1100)
== END 2021-08-08 07:45 | disposition home or self-care (01) ==
LOC: HO.10HDL 07:44
PROVIDERS: Visit Provider Urology
DX: Z12.5 Encounter for screening for malignant neoplasm of prostate (principal); R79.89 Other specified abnormal findings of blood chemistry; E29.1 Testicular hypofunction
CPT/HCPCS: 36415; 84153; 84403; 85027

== ENCOUNTER → 2021-08-15 11:11 | Outpatient (BNVA) | payer BC, SELFPAY | PROVIDERS: PCP Family Medicine; Visit Provider Internal Medicine | DX: Z13.89 Encounter for screening for other disorder (principal) ==

== ENCOUNTER → 2021-08-27 14:31 | Outpatient (BNVA) | payer BC, SELFPAY | PROVIDERS: PCP Family Medicine; Visit Provider Urology | DX: Z13.89 Encounter for screening for other disorder (principal) ==

== ENCOUNTER 2021-09-20 10:42 | Outpatient (REF) | payer BC, SELFPAY ==
--- NOTE | ~2021-09-20 | CT_ITS ---
EXAMINATION: CT CHEST SCREENING CLINICAL INFORMATION: Former smoker. 42 pack year history. Quit less than 1 year ago. COMPARISON: Previous CT May 2021 TECHNIQUE: Multidetector volumetric CT imaging of the chest is performed without contrast using low dose technique. Additional 2D coronal and sagittal reformatted images and axial 3D maximum intensity projection (MIP) images are generated on the CT workstation. This CT examination was performed using dose optimization techniques as appropriate, variously including the following: *Automated exposure control *Adjustment of mA and/or kV according to patient size (this includes techniques or standardized protocols for targeted exams where dose is matched to indication/reason for exam; i.e. extremities or head) *Use of iterative reconstruction technique DLP: 107 mGy-cm FINDINGS: LUNGS: There is evidence of emphysema. The pulmonary nodules are stable. Largest pulmonary nodule is a 6 mm left upper lobe nodule axial image 1:15 series 5. There are scattered areas of bronchial wall thickening and bronchial soft tissue opacification. The previously identified 5 mm left lower lobe endobronchial nodule probably representing bronchial soft tissue opacification may be slightly decreased in size measuring 3 mm axial image 355 series 5 on current exam compared to 5 mm. The trachea has a saber-sheath contour suggestive of COPD. MEDIASTINUM: There is mild coronary artery calcification. The mediastinum is otherwise normal. PLEURA: There is no pleural effusion. No pleural mass or thickening. AXILLA: No lymphadenopathy. UPPER ABDOMEN: Unremarkable OSSEOUS STRUCTURES: There are degenerative changes of the spine. CT/CT lung screen follow up IMPRESSION: Emphysema. Stable pulmonary nodules, largest measuring 6 mm in the left upper lobe. Mild coronary artery calcification. ASSESSMENT: Lung-RADS category 2: Benign RECOMMENDATION: Annual low-dose chest CT follow-up recommended
== END 2021-09-20 10:43 | disposition home or self-care (01) ==
LOC: HO.CT 10:42
PROVIDERS: PCP Family Medicine; Visit Provider Physician Assistant Medical
DX: Z12.2 Encounter for screening for malignant neoplasm of respiratory organs (principal); Z87.891 Personal history of nicotine dependence
CPT/HCPCS: 71250

== ENCOUNTER → 2021-11-01 10:19 | Outpatient (BNVA) | payer BC, SELFPAY | PROVIDERS: PCP Family Medicine; Visit Provider Surgery | DX: R91.1 Solitary pulmonary nodule (principal); Z87.891 Personal history of nicotine dependence | CPT/HCPCS: 99202 ==

== ENCOUNTER 2021-11-27 07:40 | Outpatient (REF) | payer BC, SELFPAY ==
[2021-11-27 10:41] LABS: Alanine Aminotransferase 25 U/L (0-40); Anion Gap 15 (12-20); Aspartate Amino Transferase 24 U/L (5-37); Blood Urea Nitrogen 12 mg/dL (9-16); Carbon Dioxide 27 mmol/L (22-29); Chloride 99 mmol/L (96-108); Estimated Glomerular Filt Rate > 60; Glucose Fasting 158 mg/dL (60-99); Potassium 4.8 mmol/L (3.3-5.1); Sodium 136 mmol/L (135-145)
[2021-11-27 10:43] LABS: Estimated Average Glucose 180 mg/dL; Hemoglobin A1c % 7.9 %
[2021-11-27 11:07] LABS: Creatinine Urine 65.14 mg/dL; Microalbum/Creatinine Ratio Ur 92.1 ug/mg cr
== END 2021-11-27 07:41 | disposition home or self-care (01) ==
LOC: HO.10HDL 07:40
PROVIDERS: Absent Provider Internal Medicine; Visit Provider Family Medicine
DX: I10 Essential (primary) hypertension (principal); E11.9 Type 2 diabetes mellitus without complications; K75.81 Nonalcoholic steatohepatitis (NASH)
CPT/HCPCS: 36415; 80051; 82043; 82565; 82947; 83036; 84450; 84460; 84520

== ENCOUNTER 2022-04-01 11:00 | Outpatient (REF) | payer BC, SELFPAY ==
--- NOTE | ~2022-04-01 | CT_ITS ---
EXAMINATION: CT CHEST SCREENING CLINICAL INFORMATION: Solitary pulmonary nodule. COMPARISON: CT chest 09/20/2021. TECHNIQUE: Multidetector volumetric CT imaging of the chest is performed without contrast using low dose technique. Additional 2D coronal and sagittal reformatted images and axial 3D maximum intensity projection (MIP) images are generated on the CT workstation. This CT examination was performed using dose optimization techniques as appropriate, variously including the following: *Automated exposure control *Adjustment of mA and/or kV according to patient size (this includes techniques or standardized protocols for targeted exams where dose is matched to indication/reason for exam; i.e. extremities or head) *Use of iterative reconstruction technique DLP: 136 mGy-cm. FINDINGS: LUNGS: The lungs are hyperinflated with no evidence of inflammation or nodules. 2 mm calcified nodule likely granuloma visualized right upper lobe axial image 229/6. No additional pulmonary nodules visualized. MEDIASTINUM: Thyroid lobes are symmetrical and normal. The central trachea is patent but elongated in AP dimension. No mediastinal mass or lymph nodes seen. Heart size and great vessels are normal caliber. There is atherosclerotic calcification of the mitral valve. CORONARY ARTERY CALCIFICATION: Trace coronary artery calcification is present. PLEURA: There is no pleural effusion. No pleural mass or thickening. AXILLA: No lymphadenopathy. UPPER ABDOMEN: Visualized liver, spleen, pancreas and bilateral adrenal glands are unremarkable. OSSEOUS STRUCTURES: No lytic or sclerotic process seen. Moderate ventral spondylosis lower dorsal spine is present. CT/CT lung screen follow up IMPRESSION: 1. Hyperinflated lungs with no acute process seen. 2. 2 mm calcified granuloma right upper lobe. Low-dose annual CT chest. ASSESSMENT: Lung-RADS category 2: Benign. RECOMMENDATION: Low-dose annual CT chest.
== END 2022-04-01 11:01 | disposition home or self-care (01) ==
LOC: HO.CT 11:00
PROVIDERS: PCP Family Medicine; Referring Provider Internal Medicine; Visit Provider Surgery
DX: R91.1 Solitary pulmonary nodule (principal)
CPT/HCPCS: 71250

== ENCOUNTER → 2022-04-11 11:01 | Outpatient (BNVA) | payer BC, SELFPAY | PROVIDERS: PCP Family Medicine; Visit Provider Surgery | DX: R91.1 Solitary pulmonary nodule (principal); Z87.891 Personal history of nicotine dependence | CPT/HCPCS: 99212 ==

== ENCOUNTER → 2022-07-16 10:45 | Outpatient (BNVA) | payer BC, SELFPAY | PROVIDERS: PCP Family Medicine; Visit Provider Internal Medicine | DX: Z13.89 Encounter for screening for other disorder (principal) ==

== ENCOUNTER 2022-09-02 07:37 | Outpatient (REF) | payer BC, SELFPAY ==
[2022-09-02 10:59] LABS: Estimated Average Glucose 157 mg/dL; Hemoglobin A1c % 7.1 %
[2022-09-02 11:08] LABS: Alanine Aminotransferase 16 U/L (0-40); Anion Gap 15 (12-20); Aspartate Amino Transferase 18 U/L (5-37); Blood Urea Nitrogen 15 mg/dL (9-16); Carbon Dioxide 30 mmol/L (22-29); Chloride 98 mmol/L (96-108); Estimated Glomerular Filt Rate > 60; Glucose Fasting 138 mg/dL (60-99); Potassium 4.8 mmol/L (3.3-5.1); Sodium 138 mmol/L (135-145)
== END 2022-09-02 07:38 | disposition home or self-care (01) ==
LOC: HO.10HDL 07:37
PROVIDERS: Visit Provider Family Medicine
DX: I10 Essential (primary) hypertension (principal); E11.9 Type 2 diabetes mellitus without complications; E78.00 Pure hypercholesterolemia, unspecified; Z79.899 Other long term (current) drug therapy
CPT/HCPCS: 36415; 80051; 82550; 82565; 82947; 83036; 84450; 84460; 84520

== ENCOUNTER → 2022-09-04 11:20 | Outpatient (BNVA) | payer BC, SELFPAY | PROVIDERS: PCP Family Medicine; Visit Provider Internal Medicine | DX: Z13.89 Encounter for screening for other disorder (principal) ==

== ENCOUNTER 2022-09-17 11:53 | Outpatient (REF) | payer BC, SELFPAY ==
--- NOTE | 2022-09-17 14:54 | PFT_ITS ---
Forced vital capacity 43%, FEV1 34%, FEV1/FVC ratio is 58, [id number] 19% and MVV is 35. Post bronchodilator therapy, there is no significant change. Total lung capacity is 71%. Residual volume 115%. Diffusion capacity 61% CONCLUSION: Mild restrictive pulmonary disorder. Severe obstructive airway disorder. No response to bronchodilator therapy. MD LEAH Wagner/MODL / [id number]
== END 2022-09-17 11:54 | disposition home or self-care (01) ==
LOC: HO.RESP 11:53
PROVIDERS: PCP Family Medicine; Visit Provider Internal Medicine
DX: J44.9 Chronic obstructive pulmonary disease, unspecified (principal); E66.9 Obesity, unspecified
CPT/HCPCS: 94060; 94727; 94729

== ENCOUNTER → 2022-11-05 10:38 | Outpatient (BNVA) | payer BC, SELFPAY | PROVIDERS: PCP Family Medicine; Visit Provider Internal Medicine ==

== ENCOUNTER 2023-01-08 10:43 | Outpatient (AMB) | payer BC, SELFPAY ==
[2023-01-08 10:52] VITALS: BP 132/68; PULSE 88; O2SAT 96; BMI 49.2
--- NOTE | 2023-01-08 10:52 | MHC.OFFVIS ---
Intake Vital Signs 01/08/23 10:52 Height 5 ft 9 in Weight 332 lb 14.368 oz BMI 49.2 BP 132/68 Blood Pressure Location Lt brachial Position Sitting Pulse 88 Pulse Source Pulse Oximeter Pulse Oximetry (%) 96 Oxygen Delivery Method Room Air Intake Visit Reasons: waqas Intake Note: Pt presents today for a f/u he reports no major changes but notices an increase in his energy and stamina since starting pulmonary rehab. Pt has dropped down to only 8 cigarettes a day. Allergies No Known Allergies [No Known Allergies*] Allergy (Verified 01/08/23 11:18) Medication List - Last Reconciled 01/08/23 by Hazel Peters MD albuterol sulfate 90 mcg/actuation (ProAir HFA) 2 puffs inhalation Q4-6H PRN apple cider vinegar 500 mg PO DAILY aspirin 81 mg PO DAILY atorvastatin 10 mg PO DAILY fish,bora,flax oils-om3,6,9no1 400-400-400 mg (Triple [place] 3-6-9) 1 cap PO DAILY vmqlaozplpf-oupgimytf-janvxbit 200-62.5-25 mcg (Trelegy Ellipta) 1 inh inhalation DAILY 30 days lisinopril 10 mg PO DAILY lysine 1,000 mg PO DAILY metformin ER 500 mg PO DAILY montelukast 10 mg PO DAILY multivitamin (Daily Multi-Vitamin tablet) 1 tab PO DAILY sildenafil 100 mg PO DAILY PRN theophylline ER 300 mg PO Q12H Do you need a note to return to daycare/school/sports/work: No HPI waqas HPI Details 62 YEARS OLD GENTLEMAN WITH ADVANCED CHRONIC OBSTRUCTIVE PULMONARY DISEASE, MORBID OBESITY, SLEEP APNEA, CHRONIC RESPIRATORY FAILURE. HAS BEEN A [employer] SMOKER. HE HAS FINALLY STOP SMOKING, BUT UNFORTUNATELY SINCE LAST MONTH RESUMED SMOKING. ABOUT HALF PACK A DAY HE HAS CUT IT DOWN TO 8 CIGARETTES A DAY, HE DOES HAVE INTENTION TO STOP COMPLETELY. HE THINKS THE NICOTINE PATCH DOES HELP, BUT HE IS NOT USING IT PRESENTLY. HE HAS BENEFITED FROM THE PULMONARY REHAB PROGRAM, AND HAS FULL INTENTION TO CONTINUE. HE USES CPAP VERY REGULARLY EVERY NIGHT. FOR[facility]LY [facility] Medical History Back pain COPD (chronic obstructive pulmonary disease) Dyspnea on exertion Emphysema lung Erectile disorder due to medical condition in male HLD (hyperlipidemia) HTN (hypertension) Hypogonadism male Low serum testosterone Morbid obesity WAQAS (obstructive sleep apnea) Personal history of nicotine dependence Pulmonary nodule Smoker Tubular adenoma of colon Surgical History History of colonoscopy Social History (Updated 01/08/23 @ 10:59 by Desiree Franco CMA) Household Members: None Tobacco use type: Cigarette Cigarettes Per Day: 8 Years Smoked: 45 Second Hand Smoke Exposure: No 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 Systems Const All systems reviewed & are unremarkable except as noted in HPI and below Eyes Reports no additional complaints ENT Reports nasal congestion (Mild) Card Denies chest pain, Denies irregular heart rhythm, Reports leg edema (Only mild, to words the afternoon) and Reports dyspnea on exertion (Mild to moderate) Resp Reports as per HPI and Reports dyspnea on exertion (Mild to moderate) GI Reports no additional complaints Reports no additional complaints Musc Reports back pain and Reports arthralgias Skin/Breast Reports system reviewed and no additional complaints, except as documented Neuro Reports no additional complaints Psych Reports no additional complaints Physical Exam Vital Signs: Last Vital Signs Pulse 88 01/08/23 10:52 BP 132/68 01/08/23 10:52 Pulse Ox 96 01/08/23 10:52 Oxygen Delivery Method Room Air 01/08/23 10:52 BMI result Body Mass Index 49.2 Const General: comfortable, no acute distress, alert and awake Orientation/consciousness: patient oriented x3 HEENT Other: He is grossly overweight with a round face Head: Yes normal to inspection General nose exam: No nasal polyps present and No nasal discharge present Face and sinus: Yes sinuses nontender Mouth: oropharynx normal Throat: No posterior oropharynx normal (Very narrow and crowded, Mallampati class 4) Eyes General: appearance normal, both eyes and all related structures Neck Neck: Yes normal visual inspection, Yes no lymphadenopathy, Yes trachea midline, Yes no JVD and Yes other (Extremely obese) Thyroid: Thyroid normal Chest Chest palpation & inspection: normal inspection of the chest, normal palpation of entire chest wall and no tenderness Resp Other: Percussion note is barely perceptible. Breath sounds are distant especially over the basilar areas. A FEW EXPIRATORY WHEEZES HEARD OVER THE UPPER CHEST. Cardio Palpation: PMI not normal (Not palpable) Rate: regular rate Rhythm: regular rhythm Heart sounds: no gallops and no murmurs GI Palpation (GI): Soft to palpation, nontender, No hepatosplenomegaly present, no masses and Other GI palpation findings present (Grossly obese and protuberant) Auscultation: normal bowel sounds Back/Spine/Pelvis Thoracic/Lumbar Spine: thoracic and lumbar spine normal to inspection and thoraco-lumbar ROM limited Skin General skin exam: no rashes or lesions noted Neuro General: patient oriented x3 and no focal motor deficits Cranial nerves: Yes CN's II-XII intact bilaterally Extrem General: Yes normal to inspection, No no joint enlargement (Knees are enlarged and somewhat tender), Yes no clubbing, cyanosis or edema and Yes no calf tenderness Psych Appearance: grossly normal and well kempt Speech and movement: Normal speech and movement present Assessment & Plan Assessment & Plan (1) COPD (chronic obstructive pulmonary disease): Comment: HE DOES HAVE SEVERE OBSTRUCTIVE PULMONARY DISEASE. HE WAS ALMOST INCAPACITATED AND NOT ABLE TO DO ANY PHYSICAL WORK, BUT SINCE HE JOINED PULMONARY REHAB PROGRAM, HIS PHYSICAL ACTIVITY HAS IMPROVED . HE DOES NOT NEED WHEELCHAIR AND CAN WALK WITH THE CANE ENCOURAGED TO CONTINUE PARTICIPATING IN REHAB PROGRAM. TX: TRELEGY ELLIPTA 1 INHALATION DAILY. THEOPHYLLIN ER 300 MG B.I.D., PROAIR HFA 2 PUFFS Q 4-6 HOURS P.R.N.. Code(s): J44.9 - Chronic obstructive pulmonary disease, unspecified (2) Morbid obesity: Comment: THIS IS A CHRONIC PROBLEM, HE IS WELL AWARE OF THIS. HE IS MOSTLY SEDENTARY, HAS NOT BEEN ABLE TO ANY EXERCISE. AT PRESENT HE IS IN PULMONARY REHAB PROGRAM AND HAS BECOME SOMEWHAT MORE ACTIVE. HE HAS NOT LOST MUCH WEIGHT BUT HE FEELS BOTTLING ATTENDANT AND STRONGER. Code(s): E66.01 - Morbid (severe) obesity due to excess calories (3) Smoker: Comment: HE IS A LONG-TIME SMOKER. HAD QUIT BUT UNFORTUNATELY RESUME SMOKING SINCE LAST MONTH. HE SAY IS HE IS DOING HIS BEST TO CUT DOWN THE NUMBER. OF CIGARETTES CURRENTLY DOWN TO 8 PER DAY. HAD A GOOD DISCUSSION WITH HIM, ADVISED THAT HE CAN USE NICOTINE PATCH 14 MG ONCE A DAY WHILE HE IS TRYING TO REDUCE THE NUMBER OF CIGARETTES. HE DOES PARTICIPATE IN ANNUAL LUNG. SCREENING PROGRAM Code(s): F17.200 - Nicotine dependence, unspecified, uncomplicated (4) WAQAS (obstructive sleep apnea): Comment: DIAGNOSED ON 10/10/10 WITH SEVERE WAQAS, RDI 72.6 VERY COMPLIANT IN USING THE CPAP, AND DEFINITELY BENEFITING FROM ITS USE. HE DID GET NEW CPAP DEVICE AND LOVES IT . HE IS USING IT REGULARLY EVERY NIGHT SINCE LAST YEAR . Code(s): G47.33 - Obstructive sleep apnea (adult) (pediatric) Coding Level of Care Code Est Pt Level 4 (11569) Diagnoses COPD (chronic obstructive pulmonary disease) J44.9 Morbid obesity E66.01 Smoker F17.200 WAQAS (obstructive sleep apnea) G47.33
== END 2023-01-08 11:19 | disposition home or self-care (01) ==
PROVIDERS: PCP Family Medicine; Visit Provider Internal Medicine
DX: J44.9 Chronic obstructive pulmonary disease, unspecified (principal); E66.01 Morbid (severe) obesity due to excess calories; F17.200 Nicotine dependence, unspecified, uncomplicated; G47.33 Obstructive sleep apnea (adult) (pediatric)
CPT/HCPCS: 99214

== ENCOUNTER → 2023-01-08 10:43 | Outpatient (BNVA) | payer BC, SELFPAY ==
[2023-01-07 07:44] VITALS: BMI 49.5
== END ==
PROVIDERS: PCP Family Medicine; Visit Provider Internal Medicine

== ENCOUNTER 2023-03-02 11:30 | Outpatient (RCR) | payer BC, SELFPAY ==
[2022-10-01 11:01] VITALS: BP 120/60; BP 136/66
[2022-10-06 11:00] VITALS: BP 116/64; BP 122/64
[2022-10-06 13:13] VITALS: BP 104/52; PULSE 78
[2022-10-08 12:27] VITALS: BP 116/62; BP 136/64
[2022-10-15 10:57] VITALS: BP 115/50; BP 145/60
[2022-10-20 11:00] VITALS: BP 104/50; BP 122/68
[2022-10-22 12:39] VITALS: BP 126/52; BP 154/68
[2022-11-03 10:55] VITALS: BP 102/46; BP 126/68
--- NOTE | 2022-11-07 07:49 | MHC.PR.IN ---
[address] [phone] F: [phone] Pulmonary Rehabilitation Individual Treatment Plan Tushar Caceres is a 62 year old (M) who was referred to the Pulmonary Rehabilitation program by Hazel Peters. This patient who has a primary diagnosis of COPD will begin pulmonary rehabilitation with monitored exercise and education to optimize both physical and social performance, autonomy, increase strength and endurance, and control dypsnea. The following information was gathered from the patient: Smoking History Current smoking status: Current Smoker Years smoked: 45 Last time smoked: this morning Quit Date: Assistance with quitting needed: No Past Medical History Medical History: COPD Sleep Apnea Surgeries: No Past Pulmonary Hospitalizations # of hospitalizations in the past year: 0 # of ER vists due to breathing troubles in the past year: 0 Current Pulmonary Medications Trelegy Ellipta Daily Albuterol SULFATE 90MCG Montelukast 10mg PO Daily 2 puffs q4-6h prn Theophylline 300mg PO Q12H Aspirin 81mgPO Daily Atorvastatin 10mg PO Daily Triple [place] 1 cap Lisinopril 10mg PO Daily Lysine 1000mg Metformin ER 500mg PO Daily Sildenafil 100mg PO Daily PRN Allergy History Allergies: NKA Current Oxygen Use Supplemental Oxygen Device Used: None Liter flow: How often: N/A Pulmonary History Cough: Yes: Occassionly Sputum: No: dry cough Sleep device: Yes Other pulmonary devices: Peak flow meter: No Nebulizer: Yes Suction: No Ventilator: No Secretion clearance: No PEP: No Influenza vaccine: No Pneumonia vaccine: No Patient Questionaire Scores MRC Dyspnea Scale (mRC): 1 CAT Score: 21 PHQ-9 Score: 7 Pulmonary Function Test and Vital Signs Pulmonary Function Test Date of PFT 09/17/22 FVC Actual 1.98% FVC Predicted 4.50% FEV1 Actual 1.15% FEV1 Predicted 3.38% FEV1/FVC Actual 58% FEV1/FVC Predicted 75% DLCO 19.07 Vital Signs Heart Rate 78 Blood Pressure 104/52 SpO2 94% Respiratory Rate RR16, breathing labored, unlabored after pursed lip breathing Did not rest until 6 minutes was up Six Minute Walk Test Supplemental Oxygen O2 L/min: FiO2: Resting Vitals SpO2: 94% BP: 104/52mmHg HR: 78 bpm Total Distance 278 Number/ Time of Rests (sec) 0 ASHLEY 4 METS 1.41 SpO2 91 HR (bpm) 93 MPH 0.53 Meters/Minute Post-walk Vitals SpO2: 93 BP: 122/68 HR: 100 Performance Observations Walked at a slow pace with a walking cane, did not stop to rest, RPD 4, SpO2 91% Pulmonary Rehabilitation Plan Topic Problem Goal Plan Comment Education Hypoxia N/A, no s/s of hypoxemia Psychosocial N/A, PHQ-9 score <5 No reported psychosocial impairments Activities of Daily Living N/A ADL performance with pacing and pursed lip breathing Educate on pursed lip breathing and pacing with stairs and activity Nutrition & Weight Management Lose weight during program Prevent further weight gain Tobacco Managment Difficulty remaining smoke free Ongoing tobacco use Become/remain smoke free Patient verbalizes strategies to improve health related to smoking Benefits of quitting Assist with identifying aids to assist w/ cessation Medication N/A, pt reports compliance w/ prescribed medications Inhaled Medication N/A Secretion Management N/A, pt able to self manage secretions Patient demonstrates effective cough and airway clearance Patient demonstrates effective cough and airway clearance Exercise & Fitness No regular exercise Pulmonary Rehab 2-3x/week Weight or resistance training 2-3x/week Aerobic Exercise: 30-60mins x 9 weeks Review benefits & core components of exercise program Review how to measure and monitor dyspnea level Review exercise safety guidelines Review frequency and duration of exercise Review exercise intensity ASHLEY RPD 3-4/10 Review home exercise guidelines Diabetes Management Does patient have DM?: No Diabetes Type: Current Blood Glucose Level: Current A1C Level: Self Check: Patient's Goals and Concerns Quit smoking, breathe easier so he can be more active. 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 The treatment plan and goals support the patient's needs and abilities, and thereby recommend that the exercise plan be completed as documented. Special precautions or modifications to the treatment plan include:
[2022-11-10 13:35] VITALS: BP 122/60; BP 122/64
[2022-11-12 14:21] VITALS: BP 130/60; BP 142/74
[2022-11-24 11:20] VITALS: BMI 49.0
--- NOTE | 2022-11-24 12:01 | MHC.PR.RE ---
[address] [phone] F: [phone] Pulmonary Rehabilitation Reassessment Tushar Caceres is a 62 year old (M) who was referred to the Pulmonary Rehabilitation program by Hazel Peters. This patient who has a primary diagnosis of COPD has completed 8 sessions of the pulmonary rehabilitation program thus far with monitored exercise and education to optimize both physical and social performance, autonomy, increase strength and endurance, and control dypsnea. They were evaluated on 11/24/22. Reassessment Type: 60-day reassessment Topic Education/ Progress Progress Comments Education Demonstrates disease self-management strategies Met. Pt is using all medications as prescribed. Hypoxia Current oxygen Use: RA Met. Patient does not use supplemental o2 Psychosocial PHQ-9 Score: 6 Pt states he is feeling better since he has started the program. Goal is to walk around more on own and use the wheelchair less frequently. Activities of Daily Living Management of ADL with Control of Dyspnea Progressing Pt progressing. Moving around more using pursed lip breathing techniques. Goal to continue using technique Nutrition & Weight Management Current weight: 332 lbs BMI: 49.0 Weight change: Not Progressing Pt states he makes healthier choices since he has started program. pt goal to not gain anymore weight. Tobacco Stages of Change: Relapse Tobacco Use: Yes Cigerettes/Day: 2 Any nicotine replacement: No Any cessation medication: No Smoking quit date: Smokeless tobacco use and amount: Pt has relapsed on smoking. Smoking cessation discussed. Goal is to quit November 29, 2022 Medication Met, taking 100% of time Trelegy Ellipta Daily Albuterol SULFATE 90MCG Montelukast 10mg PO Daily 2 puffs q4-6h prn Theophylline 300mg PO Q12H Aspirin 81mgPO Daily Atorvastatin 10mg PO Daily Triple [place] 1 cap Lisinopril 10mg PO Daily Lysine 1000mg Metformin ER 500mg PO Daily Sildenafil 100mg PO Daily PRN No Inhaled Medication Patient verbalizes correct technique of: MDI: Yes DPI: Yes SMI: Yes NEBULIZER: Yes Spacer teaching completed. Goal is to use spacer with albuterol inhaler when needed. Secretion Management Patient provides adequate return demonstration of: Controlled cough: Yes Olivier cough: Acapella/ PEP Device: N/A CPT: N/A Sputum management: Pt has strong productive cough. Exercise & Fitness Aerobic Exercise Frequency: 2X weekly Target heart range: 98 Heart rate range: 98-130 SpO2 Range: 88-92% ASHLEY RPD: 2.5-4 Time (minutes): 31 O2 use with exercise: Current HEP: UBE L2.2 15 min 2x weekly Nustep L2.2 15 min 2X weekly Treadmill L1.0 5 min 2X weekly Pt increases time and mets each visit. Although he has relapsed on smoking he has been given [employer] contact information and will follow up. Pt has a quit date goal of November 29 with the help of nicotine patches. Attorney Review I have reviewed the outcome re-assessment and treatment plan. The treatment plan and goals support the patient's needs and abilities, and thereby recommend that the exercise plan be completed as documented. Special precautions or modifications to the treatment plan include:
[2022-11-24 13:29] VITALS: BP 122/61; BP 132/64
[2022-11-27 13:21] VITALS: BMI 49.5
--- NOTE | 2022-11-27 14:37 | MHC.PR.RE ---
[address] [phone] F: [phone] Pulmonary Rehabilitation Reassessment Tushar Caceres is a 62 year old (M) who was referred to the Pulmonary Rehabilitation program by Hazel Peters. This patient who has a primary diagnosis of COPD has completed 10 sessions of the pulmonary rehabilitation program thus far with monitored exercise and education to optimize both physical and social performance, autonomy, increase strength and endurance, and control dypsnea. They were evaluated on 11/06/22. Reassessment Type: 90-day reassessment Topic Education/ Progress Progress Comments Education Demonstrates disease self-management strategies Using medications as directed Mobilizes secretions successfully Demonstrates strategies for anxiety and depression management Pt is using all medications as prescribed. Hypoxia Current oxygen Use: ra Does not use supplemental oxygen Psychosocial PHQ-9 Score: 6 Denies depression or anxiety Activities of Daily Living Progressing Uses pursed lip breathing with exertion, he feels that he is less short of breath. Nutrition & Weight Management Current weight: 335 BMI: 49.5 Weight change: Weight Gain Not Progressing Gained 3lbs, discussed that he may have overeaten when he didn't smoke for 1 week. Tobacco Stages of Change: Relapse Tobacco Use: Yes Cigerettes/Day: 2 Any nicotine replacement: Yes Any cessation medication: No Smoking quit date: 11/29/22 Smokeless tobacco use and amount: Plan is to attempt quitting 11/29/22 Medication Met, taking 100% of time Trelegy Ellipta Daily Albuterol SULFATE 90MCG Montelukast 10mg PO Daily 2 puffs q4-6h prn Theophylline 300mg PO Q12H Aspirin 81mgPO Daily Atorvastatin 10mg PO Daily Triple [place] 1 cap Lisinopril 10mg PO Daily Lysine 1000mg Metformin ER 500mg PO Daily Sildenafil 100mg PO Daily PRN Nicotine patch Inhaled Medication Patient verbalizes correct technique of: MDI: Yes DPI: Yes SMI: Yes NEBULIZER: Yes Goal Met Secretion Management Patient provides adequate return demonstration of: Controlled cough: Yes Olivier cough: Acapella/ PEP Device: N/A CPT: N/A Sputum management: No change Occassionally coughs seldom produces sputum. Exercise & Fitness Aerobic Exercise Frequency: 2X weekly Target heart range: 98 Heart rate range: 98-130 SpO2 Range: 88-92% ASHLEY RPD: 2.5-4 Time (minutes): 31 O2 use with exercise: Current HEP: UBE L2.2 15 min 2x weekly Nustep L2.2 15 min 2X weekly Treadmill L1.0 5 min 2X weekly Berry has not attended in the past week c/o increased difficulty breathing due to high humidity. It Service Delivery Manager Review I have reviewed the outcome re-assessment and treatment plan. The treatment plan and goals support the patient's needs and abilities, and thereby recommend that the exercise plan be completed as documented. Special precautions or modifications to the treatment plan include:
[2022-12-01 12:22] VITALS: BP 110/58; BP 122/66
[2022-12-08 12:10] VITALS: BP 112/62
[2022-12-15 11:53] VITALS: BP 106/55; BP 128/52
[2022-12-19 13:47] VITALS: BP 122/54; BP 132/58
[2022-12-22 13:00] VITALS: BP 112/58
[2022-12-29 14:47] VITALS: BP 108/58; BP 112/64
[2023-01-02 14:02] VITALS: BP 108/58; BP 110/62
[2023-01-05 11:30] VITALS: BP 100/56; BP 122/58
[2023-01-07 07:44] VITALS: BMI 49.5
--- NOTE | 2023-01-07 08:00 | MHC.PR.RE ---
[address] [phone] F: [phone] Pulmonary Rehabilitation Reassessment Tushar Caceres is a 62 year old (M) who was referred to the Pulmonary Rehabilitation program by Hazel Peters. This patient who has a primary diagnosis of COPD has completed 18 sessions of the pulmonary rehabilitation program thus far with monitored exercise and education to optimize both physical and social performance, autonomy, increase strength and endurance, and control dypsnea. They were evaluated on 01/07/23. Reassessment Type: 120-day reassessment Topic Education/ Progress Progress Comments Education Demonstrates disease self-management strategies Using medications as directed Mobilizes secretions successfully Demonstrates strategies for anxiety and depression management Pt is using all medications as prescribed. Hypoxia Current oxygen Use: RA Does not use supplemental oxygen Psychosocial PHQ-9 Score: 6 Denies depression or anxiety Activities of Daily Living Progressing Uses pursed lip breathing with exertion, he feels that he is less short of breath. Nutrition & Weight Management Current weight: 335 BMI: 49.5 Weight change: Weight Gain Not Progressing Gained 3lbs, discussed that he may have overeaten when he didn't smoke for 1 week. Tobacco Stages of Change: Relapse Tobacco Use: Yes Cigerettes/Day: 2 Any nicotine replacement: Yes Any cessation medication: No Smoking quit date: 11/29/22 Smokeless tobacco use and amount: Plan is to attempt quitting 11/29/22 Medication Met, taking 100% of time Trelegy Ellipta Daily Albuterol SULFATE 90MCG Montelukast 10mg PO Daily 2 puffs q4-6h prn Theophylline 300mg PO Q12H Aspirin 81mgPO Daily Atorvastatin 10mg PO Daily Triple [place] 1 cap Lisinopril 10mg PO Daily Lysine 1000mg Metformin ER 500mg PO Daily Sildenafil 100mg PO Daily PRN Nicotine patch Inhaled Medication Patient verbalizes correct technique of: MDI: Yes DPI: Yes SMI: Yes NEBULIZER: Yes Goal Met Secretion Management Patient provides adequate return demonstration of: Controlled cough: Yes Olivier cough: Acapella/ PEP Device: N/A CPT: N/A Sputum management: No change Occassionally coughs seldom produces sputum. Exercise & Fitness Aerobic Exercise Frequency: 2X weekly Target heart range: 98 Heart rate range: 98-130 SpO2 Range: 88-92% SAHLEY RPD: 2.5-4 Time (minutes): 31 O2 use with exercise: Current HEP: UBE L2.2 15 min 2x weekly Nustep L2.2 15 min 2X weekly Treadmill L1.0 5 min 2X weekly Berry has had a difficult time coming to rehab sessions consistently. Goal to come to 2 session a week until discharge. 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 The treatment plan and goals support the patient's needs and abilities, and thereby recommend that the exercise plan be completed as documented. Special precautions or modifications to the treatment plan include:
[2023-01-12 13:52] VITALS: BP 104/52; BP 124/52
[2023-01-19 13:21] VITALS: BP 112/54; BP 112/58
[2023-01-23 14:50] VITALS: BP 108/46; BP 110/52
[2023-01-26 14:58] VITALS: BP 115/60; BP 122/54
[2023-01-30 14:59] VITALS: BP 142/50; BP 98/70
[2023-02-06 07:58] VITALS: BMI 49.5
--- NOTE | 2023-02-06 08:01 | MHC.PR.RE ---
[address] [phone] F: [phone] Pulmonary Rehabilitation Reassessment Tushar Caceres is a 62 year old (M) who was referred to the Pulmonary Rehabilitation program by Hazel Peters. This patient who has a primary diagnosis of COPD has completed 23 sessions of the pulmonary rehabilitation program thus far with monitored exercise and education to optimize both physical and social performance, autonomy, increase strength and endurance, and control dypsnea. They were evaluated on 02/06/23. Reassessment Type: 120-day reassessment Topic Education/ Progress Progress Comments Education Demonstrates disease self-management strategies Using medications as directed Mobilizes secretions successfully Demonstrates strategies for anxiety and depression management Pt is using all medications as prescribed. Hypoxia Current oxygen Use: Room Air Does not use supplemental oxygen Psychosocial PHQ-9 Score: 6 Denies depression or anxiety Activities of Daily Living Progressing Uses pursed lip breathing with exertion, he feels that he is less short of breath. Nutrition & Weight Management Current weight: 335 BMI: 49.5 Weight change: Weight Stable Not Progressing weight stable. Discussed diet and better food options. Tobacco Stages of Change: Relapse Tobacco Use: Yes Cigerettes/Day: 2 Any nicotine replacement: Yes Any cessation medication: No Smoking quit date: 11/29/22 Smokeless tobacco use and amount: Pt tried to quit daily but makes a day or 2 and then smokes again. Quitworks information given Medication Met, taking 100% of time Trelegy Ellipta Daily Albuterol SULFATE 90MCG Montelukast 10mg PO Daily 2 puffs q4-6h prn Theophylline 300mg PO Q12H Aspirin 81mgPO Daily Atorvastatin 10mg PO Daily Triple [place] 1 cap Lisinopril 10mg PO Daily Lysine 1000mg Metformin ER 500mg PO Daily Sildenafil 100mg PO Daily PRN Nicotine patch Inhaled Medication Patient verbalizes correct technique of: MDI: Yes DPI: Yes SMI: Yes NEBULIZER: Yes Goal Met Secretion Management Patient provides adequate return demonstration of: Controlled cough: Yes Olivier cough: Acapella/ PEP Device: N/A CPT: N/A Sputum management: No change Occasionally coughs seldom produces sputum. Exercise & Fitness Aerobic Exercise Frequency: 2X weekly Target heart range: 98 Heart rate range: 98-130 SpO2 Range: 88-92% ASHLEY RPD: 2.5-4 Time (minutes): 31 O2 use with exercise: Current HEP: UBE L2.2 15 min 2x weekly Nustep L2.2 15 min 2X weekly Treadmill L1.0 5 min 2X weekly Berry has had a difficult time coming to rehab sessions consistently. Goal to come to 2 session a week until discharge. Casino Attendant Review I have reviewed the outcome re-assessment and treatment plan. The treatment plan and goals support the patient's needs and abilities, and thereby recommend that the exercise plan be completed as documented. Special precautions or modifications to the treatment plan include:
[2023-02-09 13:24] VITALS: BP 106/62; BP 116/58
[2023-02-13 11:25] VITALS: BP 110/52; BP 110/58
[2023-02-20 14:47] VITALS: BP 120/52; BP 128/68
[2023-03-06 07:55] VITALS: BMI 49.5
--- NOTE | 2023-03-06 08:01 | MHC.PR.DC ---
[address] [phone] F: [phone] Pulmonary Rehabilitation Discharge Tushar Caceres is a 62 year old (M) who was referred to the Pulmonary Rehabilitation program by Hazel Peters. This patient who has a primary diagnosis of COPD has completed 27 sessions of the pulmonary rehabilitation program with monitored exercise and education to optimize both physical and social performance, autonomy, increase strength and endurance, and control dypsnea. They were evaluated on 02/06/23. Discharge summary and tests are below. Initial MRC Score: 3 Discharge MRC Score: 1 Six Minute Walk Test Initial 6MWT Discharge 6MWT Supplemental Oxygen O2 L/min: 21% FiO2: O2 L/min: room air FiO2: Room Air Resting Vitals SpO2: 94% BP: 104/52mmHg HR: 78 bpm SpO2: 94% BP: 118/64mmHg HR: 90 bpm Total Distance (ft) 278 400 Number/ Time of Rests (sec) 0 1 ASHLEY 4 5 Walk Vitals SpO2: 91 HR: 93 SpO2: 90 HR: 110 Post-Walk Vitals SpO2: 94 BP: 122/68 HR: 92 SpO2: 95 BP: 120/65 HR: 91 Performance Observations Walked at a slow pace with a walking cane, did not stop to rest, RPD 4, SpO2 91% Pt walked assisted with cane at moderate pace practicing pursed lip breathing. Pt stopped to rest at minute 4 and did not resume testing. Exercise Assessment on Treadmill: Pre-exercise Post-exercise SpO2 93 92 Heart Rate 118 ASHLEY 3 METS 1.73 Exercise Assessment on UBE: Pre-exercise Post-exercise SpO2 95 92 Heart Rate 86 92 ASHLEY 3 2 METS 2.5 1.7 Exercise Assessment on Nustep: Pre-exercise Post-exercise SpO2 95 92 Heart Rate 86 92 ASHLEY 3 2 METS 2.5 1.7 Topic Education/Progress Progress Comments Education Demonstrates disease self-management strategies Using medications as directed Mobilizes secretions successfully Demonstrates strategies for anxiety and depression management Pt is using all medications as prescribed. Hypoxia Current oxygen Use: Room Air Does not use supplemental oxygen Psychosocial PHQ-9 Score: 6 Denies depression or anxiety Activities of Daily Living Progressing Uses pursed lip breathing with exertion, he feels that he is less short of breath. Nutrition and Weight Managment Current weight: 335 BMI: 49.5 Weight change: Weight Stable Not Progressing weight stable. Discussed diet and better food options. Tobacco Stages of Change: Relapse Tobacco Use: Yes Cigerettes/Day: 2 Any nicotine replacement: Yes Any cessation medication: No Smoking quit date: 11/29/22 Smokeless tobacco use and amount: Pt tried to quit daily but makes a day or 2 and then smokes again. Quitworks information given Medications Met, taking 100% of time Inhaled Medications Patient verbalizes correct technique of: MDI: Yes DPI: Yes SMI: Yes NEBULIZER: Yes Goal Met Secretion Management Patient provides adequate return demonstration of: Controlled cough: Yes Olivier cough: Acapella/ PEP Device: N/A CPT: N/A Sputum management: No change Occasionally coughs seldom produces sputum. Exercise and Fitness Aerobic Exercise Frequency: 2X weekly Target heart range: 98 Heart rate range: 98-130 SpO2 Range: 88-92% ASHLEY RPD: 2.5-4 Time (minutes): 31 O2 use with exercise: Current HEP: UBE L2.2 15 min 2x weekly Nustep L2.2 15 min 2X weekly Treadmill L1.0 5 min 2X weekly Berry has had a difficult time coming to rehab sessions consistently. Goal to come to 2 session a week until discharge. Discharge Assessment: Pt has successfully completed pulmonary rehab pre CAT 21 Post CAT 12 pre PHQ9 12 Post 12 Pt had a 43% increase in walking distance of the 6mwt from the beginning of the program. Discharge Reason: Pt completed pulmonary rehab Discharge Recommendation: : Maintenance program.
== END 2023-03-23 07:59 | disposition home or self-care (01) ==
LOC: HO.PR 11:30
PROVIDERS: PCP Family Medicine; Visit Provider Internal Medicine
DX: J44.9 Chronic obstructive pulmonary disease, unspecified (principal); R06.09 Other forms of dyspnea; F17.200 Nicotine dependence, unspecified, uncomplicated
CPT/HCPCS: 94625

== ENCOUNTER 2023-03-17 07:39 | Outpatient (REF) | payer BC, SELFPAY ==
[2023-03-17 11:17] LABS: Estimated Average Glucose 137 mg/dL; Hemoglobin A1c % 6.4 % (<6.0)
[2023-03-17 11:22] LABS: Alanine Aminotransferase 16 U/L (0-40); Anion Gap 18 (12-20); Aspartate Amino Transferase 16 U/L (5-37); Blood Urea Nitrogen 14 mg/dL (9-16); Carbon Dioxide 22 mmol/L (22-29); Chloride 103 mmol/L (96-108); Estimated Glomerular Filt Rate > 60; Glucose Fasting 145 mg/dL (60-99); Potassium 4.6 mmol/L (3.3-5.1); Sodium 138 mmol/L (135-145)
== END 2023-03-17 07:40 | disposition home or self-care (01) ==
LOC: HO.10HDL 07:39
PROVIDERS: Visit Provider Family Medicine
DX: I10 Essential (primary) hypertension (principal); E11.9 Type 2 diabetes mellitus without complications; E78.00 Pure hypercholesterolemia, unspecified; Z79.899 Other long term (current) drug therapy
CPT/HCPCS: 36415; 80051; 82550; 82565; 82947; 83036; 84450; 84460; 84520

== ENCOUNTER 2023-04-09 10:42 | Outpatient (AMB) | payer BC, SELFPAY ==
[2023-01-07 07:44] VITALS: BMI 49.5
[2023-04-09 10:55] VITALS: BP 130/60; PULSE 92; O2SAT 94; BMI 48.7
--- NOTE | 2023-04-09 10:55 | MHC.OFFVIS ---
Intake Vital Signs 04/09/23 10:55 Height 5 ft 9 in Weight 330 lb BMI 48.7 BP 130/60 Blood Pressure Location Lt brachial Position Sitting Pulse 92 Pulse Oximetry (%) 94 Oxygen Delivery Method Room Air Intake Visit Reasons: waqas Intake Note: pt is here for follow up of waqas and states he has no changes he is the same, taking meds faithly, and cpap, keeps routine. Exhibition Designer Required: No Allergies No Known Allergies [No Known Allergies*] Allergy (Verified 04/09/23 11:00) Medication List - Last Reconciled 04/09/23 by Hazel Peters MD albuterol sulfate 90 mcg/actuation (ProAir HFA) 2 puffs inhalation Q4-6H PRN apple cider vinegar 500 mg PO DAILY aspirin 81 mg PO DAILY atorvastatin 10 mg PO DAILY fish,bora,flax oils-om3,6,9no1 400-400-400 mg ([place]ple [place] 3-6-9) 1 cap PO DAILY gsqumebuhzc-qnxkwqnun-xemxctkd 200-62.5-25 mcg (Trelegy Ellipta) 1 inh inhalation DAILY 30 days lisinopril 10 mg PO DAILY lysine 1,000 mg PO DAILY metformin ER 500 mg PO DAILY montelukast 10 mg PO DAILY multivitamin (Daily Multi-Vitamin tablet) 1 tab PO DAILY sildenafil 100 mg PO DAILY PRN theophylline ER 300 mg PO Q12H PFSH Medical History Back pain COPD (chronic obstructive pulmonary disease) Dyspnea on exertion Emphysema lung Erectile disorder due to medical condition in male HLD (hyperlipidemia) HTN (hypertension) Hypogonadism male Low serum testosterone Morbid obesity WAQAS (obstructive sleep apnea) Personal history of nicotine dependence Pulmonary nodule Smoker Tubular adenoma of colon Surgical History History of colonoscopy Social History Household Members: None Tobacco use type: Cigarette Cigarettes Per Day: 8 Years Smoked: 45 Second Hand Smoke Exposure: No 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
--- NOTE | 2023-04-09 10:57 | MHC.OFFVIS ---
Intake Vital Signs 04/09/23 10:55 Height 5 ft 9 in Weight 330 lb BMI 48.7 BP 130/60 Blood Pressure Location Lt brachial Position Sitting Pulse 92 Pulse Oximetry (%) 94 Oxygen Delivery Method Room Air Intake Visit Reasons: waqas, COPD follow-up Allergies No Known Allergies [No Known Allergies*] Allergy (Verified 04/09/23 11:00) Medication List - Last Reconciled 04/09/23 by Hazel Peters MD albuterol sulfate 90 mcg/actuation (ProAir HFA) 2 puffs inhalation Q4-6H PRN apple cider vinegar 500 mg PO DAILY aspirin 81 mg PO DAILY atorvastatin 10 mg PO DAILY fish,bora,flax oils-om3,6,9no1 400-400-400 mg (Triple [place] 3-6-9) 1 cap PO DAILY hdyjjlwyyiv-pfywjzwju-syasmdiq 200-62.5-25 mcg (Trelegy Ellipta) 1 inh inhalation DAILY 30 days lisinopril 10 mg PO DAILY lysine 1,000 mg PO DAILY metformin ER 500 mg PO DAILY montelukast 10 mg PO DAILY multivitamin (Daily Multi-Vitamin tablet) 1 tab PO DAILY sildenafil 100 mg PO DAILY PRN theophylline ER 300 mg PO Q12H Do you need a note to return to daycare/school/sports/work: No HPI waqas HPI Details THIS 62 YEARS OLD GENTLEMAN WITH MORBID OBESITY, AND ADVANCED COPD. IS HERE FOR ROUTINE FOLLOW-UP VISIT. HE IS DOING VERY WELL LONG HE USES HIS TRELEGY INHALER DAILY, AND ALSO LONG HE USES CPAP. HE HAS GRADUATED FROM THE PULMONARY REHAB PROGRAM. TRIES TO STAY ACTIVE AT HOME. HE IS VERY CAREFUL AND IS WATCHING HIS DIET, BUT WEIGHT REMAINS THE SAME. HE USES HIS CPAP EVERY NIGHT VERY REGULARLY AND SLEEPS GOOD. UNFORTUNATELY STILL SMOKES BUT DOWN TO 8 CIGARETTES A DAY [facility] Medical History Dyspnea on exertion Pulmonary nodule Tubular adenoma of colon Personal history of nicotine dependence Smoker Morbid obesity Back pain WAQAS (obstructive sleep apnea) Low serum testosterone HLD (hyperlipidemia) HTN (hypertension) Emphysema lung Hypogonadism male Erectile disorder due to medical condition in male COPD (chronic obstructive pulmonary disease) Surgical History History of colonoscopy Social History Household Members: None Tobacco use type: Cigarette Cigarettes Per Day: 8 Years Smoked: 45 Second Hand Smoke Exposure: No 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 Systems Const All systems reviewed & are unremarkable except as noted in HPI and below Eyes Reports no additional complaints ENT Reports nasal congestion (Mild) Card Denies chest pain, Denies irregular heart rhythm, Reports leg edema (Only mild, to words the afternoon) and Reports dyspnea on exertion (Mild to moderate) Resp Reports as per HPI and Reports dyspnea on exertion (Mild to moderate) GI Reports no additional complaints Reports no additional complaints Musc Reports back pain and Reports arthralgias Skin/Breast Reports system reviewed and no additional complaints, except as documented Neuro Reports no additional complaints Psych Reports no additional complaints Physical Exam Const General: comfortable, no acute distress, alert and awake Orientation/consciousness: patient oriented x3 HEENT Other: He is grossly overweight with a round face Head: Yes normal to inspection General nose exam: No nasal polyps present and No nasal discharge present Face and sinus: Yes sinuses nontender Mouth: oropharynx normal Throat: No posterior oropharynx normal (Very narrow and crowded, Mallampati class 4) Eyes General: appearance normal, both eyes and all related structures Neck Neck: Yes normal visual inspection, Yes no lymphadenopathy, Yes trachea midline, Yes no JVD and Yes other (Extremely obese) Thyroid: Thyroid normal Chest Chest palpation & inspection: normal inspection of the chest, normal palpation of entire chest wall and no tenderness Resp Other: Percussion note is barely perceptible. Breath sounds are distant especially over the basilar areas. NO WHEEZES OR CREPITATIONS ARE HEARD TODAY. Cardio Palpation: PMI not normal (Not palpable) Rate: regular rate Rhythm: regular rhythm Heart sounds: no gallops and no murmurs GI Palpation (GI): Soft to palpation, nontender, No hepatosplenomegaly present, no masses and Other GI palpation findings present (Grossly obese and protuberant) Auscultation: normal bowel sounds Back/Spine/Pelvis Thoracic/Lumbar Spine: thoracic and lumbar spine normal to inspection and thoraco-lumbar ROM limited Skin General skin exam: no rashes or lesions noted Neuro General: patient oriented x3 and no focal motor deficits Cranial nerves: Yes CN's II-XII intact bilaterally Extrem General: Yes normal to inspection, No no joint enlargement (Knees are enlarged and somewhat tender), Yes no clubbing, cyanosis or edema and Yes no calf tenderness Psych Appearance: grossly normal and well kempt Speech and movement: Normal speech and movement present Results Reviewed Results Reviewed: COMPLIANCE REPORT FOR THE LAST 30 NIGHTS IS REVIEWED AND IS EXCELLENT. USED 30/30 NIGHTS, AVERAGE USE IT PER NIGHT 6 HOURS 35 MINUTES. . PRESSURE 13 CM THERE IS NO AIR LEAK. RESIDUAL AHI 0.1 Assessment & Plan Assessment & Plan (1) Morbid obesity: Comment: THIS IS A CHRONIC PROBLEM, HE IS WELL AWARE OF THIS. HE IS TRYING TO BE MORE ACTIVE, AND HAS CUT DOWN THE INTAKE OF CARBS AND CALORIES. HE IS DONE WITH PULMONARY REHAB AND I ENCOURAGED HIM TO KEEP ON DOING PHYSICAL EXERCISE DAILY AT HOME. Code(s): E66.01 - Morbid (severe) obesity due to excess calories (2) COPD (chronic obstructive pulmonary disease): Comment: HE DOES HAVE SEVERE OBSTRUCTIVE PULMONARY DISEASE. AT PRESENT COPD REMAINS STABLE HE HAS DEFINITELY BENEFITED FROM PULMONARY REHAB PROGRAM. HIS PULMONARY STATUS WOULD FURTHER IMPROVE IF HE CAN QUIT SMOKING COMPLETELY. TX: TRELEGY ELLIPTA 1 INHALATION DAILY. THEOPHYLLIN ER 300 MG B.I.D., PROAIR HFA 2 PUFFS Q 4-6 HOURS P.R.N.. Code(s): J44.9 - Chronic obstructive pulmonary disease, unspecified (3) WAQAS (obstructive sleep apnea): Comment: DIAGNOSED ON 10/10/10 WITH SEVERE WAQAS, RDI 72.6 VERY COMPLIANT IN USING THE CPAP, AND DEFINITELY BENEFITING FROM ITS USE. HE DID GET NEW CPAP DEVICE AND LOVES IT . HE IS USING IT REGULARLY EVERY NIGHT SINCE LAST YEAR . Code(s): G47.33 - Obstructive sleep apnea (adult) (pediatric) (4) Smoker: Comment: HE IS A LONG-TIME SMOKER. HAD QUIT BUT UNFORTUNATELY RESUME SMOKING SINCE LAST MONTH. HE SAYS,HE IS DOING HIS BEST TO CUT DOWN THE NUMBER. OF CIGARETTES CURRENTLY DOWN TO 8 PER DAY. HAD A GOOD DISCUSSION WITH HIM, ADVISED THAT HE CAN USE NICOTINE PATCH 14 MG ONCE A DAY WHILE HE IS TRYING TO REDUCE THE NUMBER OF CIGARETTES. NEXT STEP: TRY TO CUT DOWN THE NUMBER OF CIGARETTES TO 4 A DAY. HE DOES PARTICIPATE IN ANNUAL LUNG. SCREENING PROGRAM Code(s): F17.200 - Nicotine dependence, unspecified, uncomplicated (5) Pulmonary nodule: Comment: HE IS BEING FOLLOWED IN ANNUAL LUNG SCREENING PROGRAM LAST LOW-DOSE CT SCAN ON 09/20/21 , SHOWED A STABLE 6 MM NODULE IN LEFT UPPER LOBE. HE WILL CONTINUE TO HAVE ANNUAL LOW DOSE CT SCAN. Code(s): R91.1 - Solitary pulmonary nodule Coding Level of Care Code Est Pt Level 4 (95333) Diagnoses Morbid obesity E66.01 COPD (chronic obstructive pulmonary disease) J44.9 WAQAS (obstructive sleep apnea) G47.33 Smoker F17.200 Pulmonary nodule R91.1
== END 2023-04-09 11:10 | disposition home or self-care (01) ==
PROVIDERS: PCP Family Medicine; Visit Provider Internal Medicine
DX: E66.01 Morbid (severe) obesity due to excess calories (principal); J44.9 Chronic obstructive pulmonary disease, unspecified; G47.33 Obstructive sleep apnea (adult) (pediatric); F17.200 Nicotine dependence, unspecified, uncomplicated; R91.1 Solitary pulmonary nodule
CPT/HCPCS: 99214

== ENCOUNTER → 2023-04-09 10:42 | Outpatient (BNVA) | payer BC, SELFPAY | PROVIDERS: PCP Family Medicine; Visit Provider Internal Medicine ==

== ENCOUNTER 2023-04-16 11:04 | Outpatient (REF) | payer BC, SELFPAY ==
--- NOTE | ~2023-04-16 | CT_ITS ---
EXAMINATION: CT CHEST SCREENING CLINICAL INFORMATION: Former smoker, quit 1 year ago, 45 pack-year history. COMPARISON: Multiple previous studies, most recent, 04/01/2022. TECHNIQUE: Multidetector volumetric CT imaging of the chest is performed without contrast using low dose technique. Additional 2D coronal and sagittal reformatted images and axial 3D maximum intensity projection (MIP) images are generated on the CT workstation. This CT examination was performed using dose optimization techniques as appropriate, variously including the following: *Automated exposure control *Adjustment of mA and/or kV according to patient size (this includes techniques or standardized protocols for targeted exams where dose is matched to indication/reason for exam; i.e. extremities or head) *Use of iterative reconstruction technique DLP: 121 mGy-cm FINDINGS: PRECISION INSTRUMENT MAKER: No acute cardiopulmonary disease. LUNGS: Trachea and bronchi are patent. Centrilobular emphysema. Scattered atelectasis. NODULES: RUL: Unchanged 2 mm subpleural noncalcified nodule, 4:24. JAYLAN:. No change 4 mm medial, 4:16. Stable peribronchial nodularity, difficult to measure but unchanged, 4:47. MEDIASTINUM: No thyroid nodules. Unchanged nonspecific mediastinal lymph nodes. No pathologic lymphadenopathy. HEART AND GREAT VESSELS: Nonenlarged heart. No pericardial effusion. Mitral annular calcifications. Nonaneurysmal aorta with atherosclerotic calcifications. Nonenlarged pulmonary arteries. CORONARY ARTERY CALCIFICATION: Moderate. PLEURA: There is no pleural effusion. No pleural mass or thickening. AXILLA: No pathologic lymphadenopathy. UPPER ABDOMEN: Calcified gallstone in otherwise unremarkable, although incompletely visualized gallbladder. OSSEOUS STRUCTURES: No suspicious osseous lesions. CT/CT lung screening IMPRESSION: Stable lung nodules, none larger than 4 mm. Cholelithiasis. Correlate clinically. ASSESSMENT: Lung-RADS category 2S: Benign RECOMMENDATION: Routine annual low-dose CT screening in 12 months.
== END 2023-04-16 11:05 | disposition home or self-care (01) ==
LOC: HO.CT 11:04
PROVIDERS: PCP Family Medicine; Visit Provider Physician Assistant Medical
DX: Z12.2 Encounter for screening for malignant neoplasm of respiratory organs (principal); Z87.891 Personal history of nicotine dependence
CPT/HCPCS: 71271

== ENCOUNTER 2023-08-03 07:43 | Outpatient (REF) | payer BC, SELFPAY ==
[2023-08-03 11:05] LABS: MANUAL DIFF FLAG NO
[2023-08-03 11:07] LABS: Basophils Absolute Auto 0.1 X10*3/uL (0.0-0.2); Basophils Percent Auto 0.8 % (0-2); Eosinophils Absolute Auto 0.4 X10*3/uL (0.0-0.4); Eosinophils Percent Auto 2.3 % (0-4); Hematocrit 35.8 % (42.0-52.0); Hemoglobin 10.5 g/dl (14.0-18.0); Imm Gran Abs Auto 0.07 X10*3/uL (0.00-0.03); Imm Gran Pct Auto 0.4 % (0.0-0.4); Lymphocytes Absolute Auto 2.5 X10*3/uL (1.2-4.9); Lymphocytes Percent Auto 15.1 % (20-40); Mean Corpuscular HGB Conc 29.3 g/dl (31.0-36.0); Mean Corpuscular Hemoglobin 19.2 pg (27.0-33.0); Mean Corpuscular Volume 65.3 fL (80.0-98.0); Mean Platelet Volume 8.9 fL (9.4-12.4); Monocytes Absolute Auto 0.9 X10*3/uL (0.1-1.2); Monocytes Percent Auto 5.4 % (2-11); Neutrophils Absolute Auto 12.5 x10*3/uL (2.0-8.3); Platelet Count 417 X10*3/uL (160-400); Red Blood Count 5.48 X10*6/uL (4.60-5.80); Red Cell Distribution Width 20.9 % (11.0-16.0); White Blood Count 16.5 X10*3/uL (4.8-10.8)
[2023-08-03 11:23] LABS: Estimated Average Glucose 123 mg/dL; Hemoglobin A1c % 5.9 % (<6.0)
[2023-08-03 11:44] LABS: Alanine Aminotransferase 13 U/L (0-40); Anion Gap 12 (12-20); Aspartate Amino Transferase 13 U/L (5-37); Blood Urea Nitrogen 12 mg/dL (9-16); Carbon Dioxide 25 mmol/L (22-29); Chloride 104 mmol/L (96-108); Estimated Glomerular Filt Rate > 60; Glucose Fasting 119 mg/dL (60-99); Potassium 4.5 mmol/L (3.3-5.1); Sodium 136 mmol/L (135-145)
== END 2023-08-03 07:44 | disposition home or self-care (01) ==
LOC: HO.10HDL 07:43
PROVIDERS: Referring Provider Internal Medicine; Visit Provider Family Medicine
DX: I10 Essential (primary) hypertension (principal); R06.02 Shortness of breath; E11.9 Type 2 diabetes mellitus without complications; E78.00 Pure hypercholesterolemia, unspecified; Z79.899 Other long term (current) drug therapy
CPT/HCPCS: 36415; 80051; 82550; 82565; 82947; 83036; 84450; 84460; 84520; 85025

== ENCOUNTER 2023-08-13 10:55 | Outpatient (AMB) | payer BC, SELFPAY ==
[2023-08-13 11:09] VITALS: BP 122/68; PULSE 87; O2SAT 96; BMI 46.2
--- NOTE | 2023-08-13 11:09 | A.OFFVIS_ITS ---
Intake Vital Signs 08/13/23 11:09 Height 5 ft 9 in Weight 313 lb BMI 46.2 BP 122/68 Blood Pressure Location Lt brachial Position Sitting Pulse 87 Pulse Source Pulse Oximeter Pulse Oximetry (%) 96 Oxygen Delivery Method Room Air Intake Visit Reasons: alin Intake Note: pt is here for follow up and lost 17 lbs and states no change, exertion and he recovers. Spring is coming and he will be going out more. 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 Allergies No Known Allergies [No Known Allergies*] Allergy (Verified 08/13/23 11:37) Medication List - Last Reconciled 08/13/23 by Hazel Peters MD albuterol sulfate 90 mcg/actuation (ProAir HFA) 2 puffs inhalation Q4-6H PRN apple cider vinegar 500 mg PO DAILY aspirin 81 mg PO DAILY atorvastatin 10 mg PO DAILY fish,bora,flax oils-om3,6,9no1 400-400-400 mg (Triple [place] 3-6-9) 1 cap PO DAILY chepmpjhfxp-ulfdejkvf-fjbblycj 200-62.5-25 mcg (Trelegy Ellipta) 1 inh inhalation DAILY lisinopril 10 mg PO DAILY lysine 1,000 mg PO DAILY metformin ER 500 mg PO DAILY montelukast 10 mg PO DAILY multivitamin (Daily Multi-Vitamin tablet) 1 tab PO DAILY sildenafil 100 mg PO DAILY PRN theophylline ER 300 mg PO Q12H Do you need a note to return to daycare/school/sports/work: No HPI alin HPI Details RACHAEL , 63 YEARS OLD GENTLEMAN IS BACK FOR FOLLOW-UP FOR HIS COPD, SMOKING AND OBSTRUCTIVE SLEEP APNEA. He is excited about having lost 17 more lb of weight. Uses his CPAP regularly and sleeps very good, he is proud of complying with the CPAP usage. Breathing has been good. However he gets short of breath on any exertion, still has intermittent cough mostly related to smoking,. He is participating in pulmonary rehab program and loves it. Unfortunately still smoking about 1 pack of cigarettes a day. He does feel guilty but has hard time to quit smoking. 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 Systems Const All systems reviewed & are unremarkable except as noted in HPI and below Eyes Reports no additional complaints ENT Reports nasal congestion (Mild) Card Denies chest pain, Denies irregular heart rhythm, Reports leg edema (Only mild, to words the afternoon) and Reports dyspnea on exertion (Mild to moderate) Resp Reports as per HPI and Reports dyspnea on exertion (Mild to moderate) GI Reports no additional complaints Reports no additional complaints Musc Reports back pain and Reports arthralgias Skin/Breast Reports system reviewed and no additional complaints, except as documented Neuro Reports no additional complaints Psych Reports no additional complaints Physical Exam Vital Signs: Last Vital Signs Pulse 87 08/13/23 11:09 BP 122/68 08/13/23 11:09 Pulse Ox 96 08/13/23 11:09 Oxygen Delivery Method Room Air 08/13/23 11:09 BMI result Body Mass Index 46.2 Const General: comfortable, no acute distress, alert and awake Orientation/consciousness: patient oriented x3 HEENT Other: He is grossly overweight with a round face Head: Yes normal to inspection General nose exam: No nasal polyps present and No nasal discharge present Face and sinus: Yes sinuses nontender Mouth: oropharynx normal Throat: No posterior oropharynx normal (Very narrow and crowded, Mallampati class 4) Eyes General: appearance normal, both eyes and all related structures Neck Neck: Yes normal visual inspection, Yes no lymphadenopathy, Yes trachea midline, Yes no JVD and Yes other (Extremely obese) Thyroid: Thyroid normal Chest Chest palpation & inspection: normal inspection of the chest, normal palpation of entire chest wall and no tenderness Resp Other: Percussion note is barely perceptible. Breath sounds are distant especially over the basilar areas. NO WHEEZES OR CREPITATIONS ARE HEARD TODAY. Cardio Palpation: PMI not normal (Not palpable) Rate: regular rate Rhythm: regular rhythm Heart sounds: no gallops and no murmurs GI Palpation (GI): Soft to palpation, nontender, No hepatosplenomegaly present, no masses and Other GI palpation findings present (Grossly obese and protuberant) Auscultation: normal bowel sounds Back/Spine/Pelvis Thoracic/Lumbar Spine: thoracic and lumbar spine normal to inspection and thoraco-lumbar ROM limited Skin General skin exam: no rashes or lesions noted Neuro General: patient oriented x3 and no focal motor deficits Cranial nerves: Yes CN's II-XII intact bilaterally Extrem General: Yes normal to inspection, No no joint enlargement (Knees are enlarged and somewhat tender), Yes no clubbing, cyanosis or edema and Yes no calf tenderness Psych Appearance: grossly normal and well kempt Speech and movement: Normal speech and movement present Results Reviewed Results Reviewed: Compliance report for the last 30 nights indicates that he has used 30/30 nights, 100%. Average use per night 6 hours 28 minutes. His pressure is set at 13 cm. There is no air leak residual AHI only 0.1 LDCT scan on 04/16/23 Stable lung nodules, none larger than 4 mm. Cholelithiasis. Correlate clinically. ASSESSMENT: Lung-RADS category 2S: Benign RECOMMENDATION: Routine annual low-dose CT screening in 12 months. Assessment & Plan Assessment & Plan (1) Morbid obesity: Comment: THIS IS A CHRONIC PROBLEM, HE IS WELL AWARE OF THIS. HE IS TRYING TO BE MORE ACTIVE, AND HAS CUT DOWN THE INTAKE OF CARBS AND CALORIES. HAS LOST 17 MORE LBs . Code(s): E66.01 - Morbid (severe) obesity due to excess calories Plan: ENCOURAGED TO STAY ACTIVE, . WALK A FEW MILES DAILY WATCH THE DIET, AND KEEP. ON LOSING WEIGHT (2) COPD (chronic obstructive pulmonary disease): Comment: HE DOES HAVE SEVERE OBSTRUCTIVE PULMONARY DISEASE. AT PRESENT COPD REMAINS STABLE HE HAS DEFINITELY BENEFITED FROM PULMONARY REHAB PROGRAM. HIS PULMONARY STATUS WOULD FURTHER IMPROVE IF HE CAN QUIT SMOKING COMPLETELY. Code(s): J44.9 - Chronic obstructive pulmonary disease, unspecified Plan: TX: TRELEGY ELLIPTA 1 INHALATION DAILY. THEOPHYLLIN ER 300 MG B.I.D., PROAIR HFA 2 PUFFS Q 4-6 HOURS P.R.N.. (3) ALIN (obstructive sleep apnea): Comment: DIAGNOSED ON 10/10/10 WITH SEVERE ALIN, RDI 72.6 TREATED VERY WELL WITH THE USE OF CPAP . HE IS VERY COMPLIANT IN USING THE CPAP, AND DEFINITELY BENEFITING FROM ITS USE. HIS CURRENT CPAP DEVICE IS A NEW ONE AND HE LOVES IT . HE IS USING IT REGULARLY EVERY NIGHT SINCE LAST YEAR . Code(s): G47.33 - Obstructive sleep apnea (adult) (pediatric) Plan: COMMENDED FOR USING THE CPAP REGULARLY AND ADVISED TO CONTINUE USING IT MORE THAN 6 HOURS PER NIGHT. (4) Smoker: Comment: HE IS A LONG-TIME SMOKER. HAD QUIT BUT UNFORTUNATELY RESUME SMOKING SINCE LAST MONTH. HE SAYS,HE IS DOING HIS BEST BUT IT IS VERY HARD FOR HIM TO QUIT SMOKING. HE DOES NOT NEED ANY EXTRA HELP , WOULD TRY TO DO ON HIS OWN. Code(s): F17.200 - Nicotine dependence, unspecified, uncomplicated Plan: HAD A LONG TALK WITH HIM ABOUT . RISK OF CONTINUED SMOKING HE HAS ALSO DEVELOPED PERIPHERAL VASCULAR DISEASE AND IS BEING FOLLOWED BY VASCULAR SURGERY. I DISCUSSED WITH HIM TO USE HIS COMMON SINCE AND WILL POWER AND TRY TO REDUCE THE NUMBER OF CIGARETTES MUCH HE CAN. (5) Pulmonary nodule: Comment: HE IS BEING FOLLOWED IN ANNUAL LUNG SCREENING PROGRAM LAST LOW-DOSE CT SCAN IN SHOWED A STABLE 6 MM NODULE IN LEFT UPPER LOBE. HE WILL CONTINUE TO HAVE ANNUAL LOW DOSE CT SCAN. Code(s): R91.1 - Solitary pulmonary nodule Plan: ENCOURAGED TO CONTINUE HAVING ANNUAL LUNG SCREENING Coding Level of Care Code Est Pt Level 4 (37520) Diagnoses Morbid obesity E66.01 COPD (chronic obstructive pulmonary disease) J44.9 ALIN (obstructive sleep apnea) G47.33 Smoker F17.200 Pulmonary nodule R91.1
== END 2023-08-13 11:40 | disposition home or self-care (01) ==
PROVIDERS: PCP Family Medicine; Visit Provider Internal Medicine
DX: E66.01 Morbid (severe) obesity due to excess calories (principal); J44.9 Chronic obstructive pulmonary disease, unspecified; G47.33 Obstructive sleep apnea (adult) (pediatric); F17.200 Nicotine dependence, unspecified, uncomplicated; R91.1 Solitary pulmonary nodule
CPT/HCPCS: 99214

== ENCOUNTER → 2023-08-13 10:55 | Outpatient (BNVA) | payer BC, SELFPAY | PROVIDERS: PCP Family Medicine; Visit Provider Internal Medicine ==

== ENCOUNTER 2023-11-10 07:41 | Outpatient (REF) | payer BC, SELFPAY ==
[2023-11-10 10:56] LABS: MANUAL DIFF FLAG NO
[2023-11-10 11:13] LABS: Basophils Absolute Auto 0.2 X10*3/uL (0.0-0.2); Basophils Percent Auto 0.9 % (0-2); Eosinophils Absolute Auto 0.4 X10*3/uL (0.0-0.4); Hematocrit 36.9 % (42.0-52.0); Imm Gran Pct Auto 0.5 % (0.0-0.4); Lymphocytes Absolute Auto 2.5 X10*3/uL (1.2-4.9); Lymphocytes Percent Auto 13.5 % (20-40); Mean Corpuscular HGB Conc 29.8 g/dl (31.0-36.0); Mean Corpuscular Hemoglobin 19.7 pg (27.0-33.0); Mean Corpuscular Volume 66.1 fL (80.0-98.0); Mean Platelet Volume 9.3 fL (9.4-12.4); Monocytes Absolute Auto 0.9 X10*3/uL (0.1-1.2); Monocytes Percent Auto 5.1 % (2-11); Neutrophils Absolute Auto 14.4 x10*3/uL (2.0-8.3); Platelet Count 440 X10*3/uL (160-400); Red Blood Count 5.58 X10*6/uL (4.60-5.80); Red Cell Distribution Width 22.7 % (11.0-16.0); White Blood Count 18.4 X10*3/uL (4.8-10.8)
[2023-11-10 11:55] LABS: Iron 19 mcg/dL (45-160); Percent Iron Saturation 7 % (15-50); Total Iron Binding Capacity 262 mcg/dL (228-428); Unsaturated Iron Binding 243 ug/dL
[2023-11-10 12:10] LABS: Ferritin 32 ng/mL (20-250)
[2023-11-10 12:11] LABS: Folate 11.4 ng/mL (> or = 4.0); Vitamin B12 877 pg/mL (200-900)
== END 2023-11-10 07:42 | disposition home or self-care (01) ==
LOC: HO.10HDL 07:41
PROVIDERS: Visit Provider Family Medicine
DX: D64.9 Anemia, unspecified (principal)
CPT/HCPCS: 36415; 82607; 82728; 82746; 83540; 85025

== ENCOUNTER 2023-12-04 07:36 | Outpatient (REF) | payer BC, SELFPAY ==
[2023-12-04 10:52] LABS: Appearance Urine Clear; Color Urine Dark Yellow; Glucose Urine UA Negative (Negative); Leukocyte Esterase Urine Negative (Negative); Nitrite Urine Negative (Negative); PH 5.5 (5.0-9.0); Specific Gravity - Urine 1.025 (1.005-1.025); Urine Blood Negative (Negative); Urine Ketones Trace mg/dL (Negative); Urine Protein Trace mg/dL (Neg-Trace)
[2023-12-04 10:55] LABS: MANUAL DIFF FLAG NO
[2023-12-04 10:57] LABS: Hematocrit 39.7 % (42.0-52.0); Hemoglobin 11.7 g/dl (14.0-18.0); Red Blood Count 5.85 X10*6/uL (4.60-5.80); White Blood Count 17.8 X10*3/uL (4.8-10.8)
[2023-12-04 10:58] LABS: Basophils Absolute Auto 0.1 X10*3/uL (0.0-0.2); Basophils Percent Auto 0.8 % (0-2); Eosinophils Absolute Auto 0.4 X10*3/uL (0.0-0.4); Eosinophils Percent Auto 2.1 % (0-4); Imm Gran Pct Auto 0.6 % (0.0-0.4); Lymphocytes Absolute Auto 2.2 X10*3/uL (1.2-4.9); Lymphocytes Percent Auto 12.5 % (20-40); Mean Corpuscular HGB Conc 29.5 g/dl (31.0-36.0); Mean Corpuscular Volume 67.9 fL (80.0-98.0); Mean Platelet Volume 9.9 fL (9.4-12.4); Monocytes Absolute Auto 0.9 X10*3/uL (0.1-1.2); Neutrophils Absolute Auto 14.1 x10*3/uL (2.0-8.3); Platelet Count 425 X10*3/uL (160-400); Red Cell Distribution Width 22.9 % (11.0-16.0)
[2023-12-04 11:21] LABS: Blood Urea Nitrogen 13 mg/dL (9-16); Estimated Glomerular Filt Rate > 60; Iron 27 mcg/dL (45-160); Percent Iron Saturation 10 % (15-50); Total Iron Binding Capacity 258 mcg/dL (228-428); Unsaturated Iron Binding 231 ug/dL
[2023-12-04 12:08] LABS: Erythrocyte Sedimentation Rate 27 MM/HR (0-15)
== END 2023-12-04 07:37 | disposition home or self-care (01) ==
LOC: HO.10HDL 07:36
PROVIDERS: Visit Provider Family Medicine
DX: D50.9 Iron deficiency anemia, unspecified (principal); R63.4 Abnormal weight loss
CPT/HCPCS: 36415; 81003; 82378; 82565; 83540; 84520; 85025; 85652

== ENCOUNTER 2023-12-16 11:04 | Outpatient (AMB) | payer BC, SELFPAY ==
--- NOTE | 2023-12-16 11:15 | A.OFFVIS_ITS ---
Vital Signs 12/16/23 11:16 Height 5 ft 9 in Weight 295 lb 6.711 oz BMI 43.6 BP 120/58 L Blood Pressure Location Lt brachial Position Sitting Pulse 82 Pulse Source Pulse Oximeter Pulse Oximetry (%) 96 Oxygen Delivery Method Room Air Intake Visit Reasons: Obstructive sleep apnea Intake Note: pt is here for follow up and states he is still short of breath but is down 30 lbs. has a few things to talk about. 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 Allergies No Known Allergies [No Known Allergies*] Allergy (Verified 12/16/23 11:44) Medication List - Last Reconciled 12/16/23 by Hazel Peters MD albuterol sulfate 90 mcg/actuation (ProAir HFA) 2 puffs inhalation Q4-6H PRN apple cider vinegar 500 mg PO DAILY aspirin 81 mg PO DAILY atorvastatin 10 mg PO DAILY fish,bora,flax oils-om3,6,9no1 400-400-400 mg (Triple [place] 3-6-9) 1 cap PO DAILY qduijacmdfn-mcwaejena-hgxmsetm 200-62.5-25 mcg (Trelegy Ellipta) 1 inh inhalation DAILY lisinopril 10 mg PO DAILY lysine 1,000 mg PO DAILY metformin ER 500 mg PO DAILY montelukast 10 mg PO DAILY multivitamin (Daily Multi-Vitamin tablet) 1 tab PO DAILY sildenafil 100 mg PO DAILY PRN theophylline ER 300 mg PO Q12H Do you need a note to return to daycare/school/sports/work: No HPI HPI Obstructive sleep apnea: Details: This 63 years old gentleman with morbid obesity and obstructive sleep apnea, as well as COPD, and allergic rhinitis, Comes for follow-up after 4 months. Breathing vaughan doing fairly well but he feels congested in the upper chest, and ends up using albuterol inhaler more than 4 times a day, on top of Trelegy 1 inhalation daily. He has had extraction of the teeth, currently edentulous, at some point he will be getting dentures. Complains of swelling of submandibular glands on both sides, and left 1 is slightly tender to touch. Because of his loss of teeth he is on ground diet, he has lost good amount of weight . He has graduated from the pulmonary rehab program . 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 male COPD (chronic obstructive pulmonary disease) Surgical History History of colonoscopy Social History Household Members: None Tobacco use type: Cigarette Cigarettes Per Day: 8 Years Smoked: 45 Second Hand Smoke Exposure: No 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 Systems Const All systems reviewed & are unremarkable except as noted in HPI and below Eyes Reports no additional complaints ENT Reports nasal congestion (Mild) Card Denies chest pain, Denies irregular heart rhythm, Reports leg edema (Only mild, to words the afternoon) and Reports dyspnea on exertion (Mild to moderate) Resp Reports as per HPI and Reports dyspnea on exertion (Mild to moderate) GI Reports no additional complaints Reports no additional complaints Musc Reports back pain and Reports arthralgias Skin/Breast Reports system reviewed and no additional complaints, except as documented Neuro Reports no additional complaints Psych Reports no additional complaints Physical Exam Vital Signs: Last Vital Signs Pulse 82 12/16/23 11:16 BP 120/58 L 12/16/23 11:16 Pulse Ox 96 12/16/23 11:16 Oxygen Delivery Method Room Air 12/16/23 11:16 BMI result Body Mass Index 43.6 Const General: comfortable, no acute distress, alert and awake Orientation/consciousness: patient oriented x3 HEENT Other: He is grossly overweight with a round face Head: Yes normal to inspection General nose exam: No nasal polyps present and No nasal discharge present Face and sinus: Yes sinuses nontender Mouth: oropharynx abnormals (Oropharynx is still narrow and crowded. A few tiny white spots on soft pradeep) Throat: No posterior oropharynx normal (Very narrow and crowded, Mallampati class 4) Eyes General: appearance normal, both eyes and all related structures Neck Neck: Yes normal visual inspection, No no lymphadenopathy (Enlarged submandibular glands on both sides), Yes trachea midline, Yes no JVD and Yes other (Extremely obese) Thyroid: Thyroid normal Chest Chest palpation & inspection: normal inspection of the chest, normal palpation of entire chest wall and no tenderness Resp Other: Percussion note is barely perceptible. Breath sounds are distant especially over the basilar areas. NO WHEEZES OR CREPITATIONS ARE HEARD TODAY. Cardio Palpation: PMI not normal (Not palpable) Rate: regular rate Rhythm: regular rhythm Heart sounds: no gallops and no murmurs GI Palpation (GI): Soft to palpation, nontender, No hepatosplenomegaly present, no masses and Other GI palpation findings present (Grossly obese and protuberant) Auscultation: normal bowel sounds Back/Spine/Pelvis Thoracic/Lumbar Spine: thoracic and lumbar spine normal to inspection and thoraco-lumbar ROM limited Skin General skin exam: no rashes or lesions noted Neuro General: patient oriented x3 and no focal motor deficits Cranial nerves: Yes CN's II-XII intact bilaterally Extrem General: Yes normal to inspection, No no joint enlargement (Knees are enlarged and somewhat tender), Yes no clubbing, cyanosis or edema and Yes no calf tenderness Psych Appearance: grossly normal and well kempt Speech and movement: Normal speech and movement present Results Reviewed Results Reviewed: COMPLIANCE REPORT IS REVIEWED. HE HAS USED 30/30 NIGHTS AND AVERAGE USE IT PER NIGHT IS 6 HOURS 38 MINUTES. PRESSURE IS 13 CM. RESIDUAL AHI ONLY 0.1 Assessment & Plan Assessment & Plan (1) Morbid obesity: Comment: THIS IS A CHRONIC PROBLEM, HE IS WELL AWARE OF THIS. HE IS TRYING TO BE MORE ACTIVE, AND HAS CUT DOWN THE INTAKE OF CARBS AND CALORIES. HAS LOST 17 MORE LBs . Code(s): E66.01 - Morbid (severe) obesity due to excess calories Category: Medical Plan: Encouraged to keep on watching the diet, and try to lose more weight. (2) ALIN (obstructive sleep apnea): Comment: DIAGNOSED ON 10/10/10 WITH SEVERE ALIN, RDI 72.6 TREATED VERY WELL WITH THE USE OF CPAP . HE IS VERY COMPLIANT IN USING THE CPAP, AND DEFINITELY BENEFITING FROM ITS USE. COMPLIANCE IS EXCELLENT. Code(s): G47.33 - Obstructive sleep apnea (adult) (pediatric) Category: Medical Plan: COMMENDED FOR GOOD COMPLIANCE AND CONTINUE TO USE THE CPAP REGULARLY EVERY NIGHT (3) Smoker: Comment: THIS GENTLEMAN HAS LONGSTANDING HISTORY OF SMOKING. HE HAD QUIT FOR A WHILE BUT THEN RESUMED SMOKING AGAIN. CURRENTLY HE IS DOWN TO 8 CIGARETTES A DAY, Code(s): F17.200 - Nicotine dependence, unspecified, uncomplicated Category: Social Hx Plan: I STRESSED THAT HE SHOULD TRY TO QUIT COMPLETELY AGAIN. HE DOES NOT NEED ANY EXTRA HELP , WOULD TRY TO DO ON HIS OWN. (4) COPD (chronic obstructive pulmonary disease): Comment: HE DOES HAVE SEVERE OBSTRUCTIVE PULMONARY DISEASE. AT PRESENT COPD REMAINS STABLE HE HAS DEFINITELY BENEFITED FROM PULMONARY REHAB PROGRAM, WHICH IS NOW COMPLETED. HIS PULMONARY STATUS WOULD FURTHER IMPROVE IF HE CAN QUIT SMOKING COMPLETELY. Code(s): J44.9 - Chronic obstructive pulmonary disease, unspecified Category: Medical Plan: CONTINUE USING TRELEGY 1 INHALATION DAILY. THEOPHYLLINE ER 300 MG B.I.D. ALBUTEROL HFA 2 PUFFS Q 6 HOURS P.R.N.. ( HE DOES HAVE HISTORY OF USING IT MORE THAN 4 TIMES A DAY AND I HAD A DIANA DISCUSSION WITH, HE SHOULD NOT USE MORE THAN 2 OR 3 TIMES PER DAY.) (5) Submandibular lymphadenopathy: Comment: HE PRESENTS WITH BILATERAL SUBMANDIBULAR LYMPHADENOPATHY, I THINK IT MAY BE SECONDARY TO ORAL INFECTION ( RECENT TEETH EXTRACTION AND LOW-GRADE CANDIDIASIS ) Code(s): R59.0 - Localized enlarged lymph nodes Category: Medical Plan: [place]STAT[place] SWISHES B.I.D. PRESCRIBED. ALSO LISTERINE MOUTHWASH B.I.D.. Medications: New nystatin administer 1/2 of dose in each side of the mouth SWISH AND SWALLOW 500,000 units (5 mL) PO TID 15 days 225 mL 0RF ORAL THRUSH Coding Level of Care Code Est Pt Level 4 (32769) Diagnoses Morbid obesity E66.01 ALIN (obstructive sleep apnea) G47.33 Smoker F17.200 COPD (chronic obstructive pulmonary disease) J44.9 Submandibular lymphadenopathy R59.0
[2023-12-16 11:16] VITALS: BP 120/58; PULSE 82; O2SAT 96; BMI 43.6
== END 2023-12-16 11:44 | disposition home or self-care (01) ==
PROVIDERS: PCP Family Medicine; Visit Provider Internal Medicine
DX: E66.01 Morbid (severe) obesity due to excess calories (principal); G47.33 Obstructive sleep apnea (adult) (pediatric); F17.200 Nicotine dependence, unspecified, uncomplicated; J44.9 Chronic obstructive pulmonary disease, unspecified; R59.0 Localized enlarged lymph nodes
CPT/HCPCS: 99214

== ENCOUNTER → 2023-12-16 11:04 | Outpatient (BNVA) | payer BC, SELFPAY | PROVIDERS: PCP Family Medicine; Visit Provider Internal Medicine ==

== ENCOUNTER 2024-01-19 10:38 | Outpatient (AMB) | payer BC, SELFPAY ==
--- NOTE | 2024-01-19 10:50 | A.OFFVIS_ITS ---
Vital Signs 01/19/24 10:51 Height 5 ft 9 in Weight 299 lb 13.259 oz BMI 44.3 BP 130/68 Blood Pressure Location Lt brachial Position Sitting Pulse 82 Pulse Source Pulse Oximeter Pulse Oximetry (%) 96 Oxygen Delivery Method Room Air Intake Visit Reasons: Obstructive sleep apnea Intake Note: pt is here for follow up and states he is doing, thrush is gone. 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: No Allergies No Known Allergies [No Known Allergies*] Allergy (Verified 01/19/24 11:07) Medication List - Last Reconciled 01/19/24 by Hazel Peters MD albuterol sulfate 90 mcg/actuation (ProAir HFA) 2 puffs inhalation Q4-6H PRN apple cider vinegar 500 mg PO DAILY aspirin 81 mg PO DAILY atorvastatin 10 mg PO DAILY clotrimazole 10 mg mucous membrane TID 7 days fish,bora,flax oils-om3,6,9no1 400-400-400 mg (Triple [place] 3-6-9) 1 cap PO DAILY elmykdglewe-meuplpswj-hwcamusf 200-62.5-25 mcg (Trelegy Ellipta) 1 inh inhalation DAILY lisinopril 10 mg PO DAILY lysine 1,000 mg PO DAILY metformin ER 500 mg PO DAILY montelukast 10 mg PO DAILY multivitamin (Daily Multi-Vitamin tablet) 1 tab PO DAILY nystatin 500,000 units (5 mL) PO TID 15 days sildenafil 100 mg PO DAILY PRN theophylline ER 300 mg PO Q12H Do you need a note to return to daycare/school/sports/work: No HPI HPI Obstructive sleep apnea: Details: Tushar , 63 years old gentleman, is here for a short term follow-up, for oral thrush and bilateral submandibular lymphadenopathy. He was treated with nystatin lozenges , and within a few days after taking the medicine his throat felt better and submandibular lymphadenopathy has resolved. He is eating well mostly soft diet, has put on a few lb of weight. Breathing status is very stable. He uses his CPAP regularly and sleeps good. [facility] Medical History Submandibular lymphadenopathy Dyspnea on exertion Pulmonary nodule Tubular adenoma of colon Personal history of nicotine dependence Smoker Morbid obesity Back pain ALIN (obstructive sleep apnea) Low serum testosterone HLD (hyperlipidemia) HTN (hypertension) Emphysema lung Hypogonadism male Erectile disorder due to medical condition in male COPD (chronic obstructive pulmonary disease) Surgical History History of colonoscopy Social History Household Members: None Tobacco use type: Cigarette Cigarettes Per Day: 8 Years Smoked: 45 Second Hand Smoke Exposure: No 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 Systems Const All systems reviewed & are unremarkable except as noted in HPI and below Eyes Reports no additional complaints ENT Reports nasal congestion (Mild) Card Denies chest pain, Denies irregular heart rhythm, Reports leg edema (Only mild, to words the afternoon) and Reports dyspnea on exertion (Mild to moderate) Resp Reports as per HPI and Reports dyspnea on exertion (Mild to moderate) GI Reports no additional complaints Reports no additional complaints Musc Reports back pain and Reports arthralgias Skin/Breast Reports system reviewed and no additional complaints, except as documented Neuro Reports no additional complaints Psych Reports no additional complaints Physical Exam Vital Signs: Last Vital Signs Pulse 82 01/19/24 10:51 BP 130/68 01/19/24 10:51 Pulse Ox 96 01/19/24 10:51 Oxygen Delivery Method Room Air 01/19/24 10:51 BMI result Body Mass Index 44.3 Const General: comfortable, no acute distress, alert and awake Orientation/consciousness: patient oriented x3 HEENT Other: He is grossly overweight with a round face Head: Yes normal to inspection General nose exam: No nasal polyps present and No nasal discharge present Face and sinus: Yes sinuses nontender Mouth: oropharynx normal (No white spots are erythema noted) Throat: No posterior oropharynx normal (Very narrow and crowded, Mallampati class 4) Eyes General: appearance normal, both eyes and all related structures Neck Neck: Yes normal visual inspection, No no lymphadenopathy (Enlarged submandibular glands on both sides), Yes trachea midline, Yes no JVD and Yes other (Extremely obese) Thyroid: Thyroid normal Chest Chest palpation & inspection: normal inspection of the chest, normal palpation of entire chest wall and no tenderness Resp Other: Percussion note is barely perceptible. Breath sounds are distant especially over the basilar areas. NO WHEEZES OR CREPITATIONS ARE HEARD TODAY. Cardio Palpation: PMI not normal (Not palpable) Rate: regular rate Rhythm: regular rhythm Heart sounds: no gallops and no murmurs GI Palpation (GI): Soft to palpation, nontender, No hepatosplenomegaly present, no masses and Other GI palpation findings present (Grossly obese and protuberant) Auscultation: normal bowel sounds Back/Spine/Pelvis Thoracic/Lumbar Spine: thoracic and lumbar spine normal to inspection and thoraco-lumbar ROM limited Skin General skin exam: no rashes or lesions noted Neuro General: patient oriented x3 and no focal motor deficits Cranial nerves: Yes CN's II-XII intact bilaterally Extrem General: Yes normal to inspection, No no joint enlargement (Knees are enlarged and somewhat tender), Yes no clubbing, cyanosis or edema and Yes no calf tenderness Psych Appearance: grossly normal and well kempt Speech and movement: Normal speech and movement present Results Reviewed Results Reviewed: Compliance report for the last 30 nights is reviewed. His usage is 100% of the nights, average use it per night 6 hours 55 minutes. No air leak . And residual AHI only 0.1 Assessment & Plan Assessment & Plan (1) COPD (chronic obstructive pulmonary disease): Comment: HE DOES HAVE SEVERE OBSTRUCTIVE PULMONARY DISEASE. AT PRESENT COPD REMAINS STABLE HE HAS DEFINITELY BENEFITED FROM PULMONARY REHAB PROGRAM WHICH WAS COMPLETED LAST MONTH. HIS PULMONARY STATUS WOULD FURTHER IMPROVE IF HE CAN QUIT SMOKING COMPLETELY. Code(s): J44.9 - Chronic obstructive pulmonary disease, unspecified Category: Medical Plan: TRELEGY ELLIPTA 1 INHALATION DAILY THEOPHYLLINE ER 300 MG Q.12 HOURS. ALBUTEROL HFA 2 PUFFS Q 4-6 HOURS ONLY P.R.N. (2) Morbid obesity: Comment: THIS IS A CHRONIC PROBLEM, HE IS WELL AWARE OF THIS. HE IS TRYING TO BE MORE ACTIVE, AND HAS CUT DOWN THE INTAKE OF CARBS AND CALORIES. HAD LOST 17 MORE LBs. BUT NOW AT A STANDS STILL Code(s): E66.01 - Morbid (severe) obesity due to excess calories Category: Medical Plan: AGAIN TALKED TO HIM ABOUT THE DIET AND HE MUST REDUCE CALORIES INTAKE. (3) ALIN (obstructive sleep apnea): Comment: DIAGNOSED ON 10/10/10 WITH SEVERE ALIN, RDI 72.6 TREATED VERY WELL WITH THE USE OF CPAP . HE IS VERY COMPLIANT IN USING THE CPAP, AND DEFINITELY BENEFITING FROM ITS USE. COMPLIANCE IS EXCELLENT. Code(s): G47.33 - Obstructive sleep apnea (adult) (pediatric) Category: Medical Plan: CONTINUE TO USE THE CPAP EVERY NIGHT (4) Smoker: Comment: THIS GENTLEMAN HAS LONGSTANDING HISTORY OF SMOKING. HE HAD QUIT FOR A WHILE BUT THEN RESUMED SMOKING AGAIN. CURRENTLY HE IS DOWN TO 8 CIGARETTES A DAY, TRYING TO CUT IT DOWN SLOWLY Code(s): F17.200 - Nicotine dependence, unspecified, uncomplicated Category: Social Hx Plan: AGAIN STRESSED THAT HE NEEDS TO QUIT COMPLETELY (5) Submandibular lymphadenopathy: Comment: ON HIS LAST VISIT HE HAD BILATERAL SUBMANDIBULAR LYMPH ADENOPATHY, THIS WAS CONSIDERED TO BE SECONDARY TO ORAL INFECTION ( THRUSH ) Has been treated effectively and lymphadenopathy has resolved. Code(s): R59.0 - Localized enlarged lymph nodes Category: Medical Plan: Continue to watch for any oral infection and lymphadenopathy Coding Level of Care Code Est Pt Level 3 (77121) Diagnoses COPD (chronic obstructive pulmonary disease) J44.9 Morbid obesity E66.01 ALIN (obstructive sleep apnea) G47.33 Smoker F17.200 Submandibular lymphadenopathy R59.0
[2024-01-19 10:51] VITALS: BP 130/68; PULSE 82; O2SAT 96; BMI 44.3
== END 2024-01-19 11:08 | disposition home or self-care (01) ==
PROVIDERS: PCP Family Medicine; Visit Provider Internal Medicine
DX: J44.9 Chronic obstructive pulmonary disease, unspecified (principal); E66.01 Morbid (severe) obesity due to excess calories; G47.33 Obstructive sleep apnea (adult) (pediatric); F17.200 Nicotine dependence, unspecified, uncomplicated; R59.0 Localized enlarged lymph nodes
CPT/HCPCS: 99213

== ENCOUNTER → 2024-01-19 10:38 | Outpatient (BNVA) | payer BC, SELFPAY | PROVIDERS: PCP Family Medicine; Visit Provider Internal Medicine ==

== ENCOUNTER 2024-03-08 08:04 | Outpatient (REF) | payer BC, SELFPAY ==
[2024-03-08 10:50] LABS: MANUAL DIFF FLAG NO
[2024-03-08 11:02] LABS: Basophils Absolute Auto 0.2 X10*3/uL (0.0-0.2); Eosinophils Absolute Auto 0.4 X10*3/uL (0.0-0.4); Eosinophils Percent Auto 2.8 % (0-4); Hematocrit 39.6 % (42.0-52.0); Imm Gran Abs Auto 0.09 X10*3/uL (0.00-0.03); Imm Gran Pct Auto 0.6 % (0.0-0.4); Lymphocytes Absolute Auto 2.2 X10*3/uL (1.2-4.9); Lymphocytes Percent Auto 14.4 % (20-40); Mean Corpuscular HGB Conc 30.3 g/dl (31.0-36.0); Mean Corpuscular Hemoglobin 21.1 pg (27.0-33.0); Mean Corpuscular Volume 69.7 fL (80.0-98.0); Mean Platelet Volume 9.3 fL (9.4-12.4); Monocytes Absolute Auto 0.9 X10*3/uL (0.1-1.2); Monocytes Percent Auto 5.8 % (2-11); Neutrophils Absolute Auto 11.8 x10*3/uL (2.0-8.3); Neutrophils Percent Auto 75.4 % (45-73); Platelet Count 357 X10*3/uL (160-400); Red Blood Count 5.68 X10*6/uL (4.60-5.80); Red Cell Distribution Width 21.2 % (11.0-16.0); White Blood Count 15.6 X10*3/uL (4.8-10.8)
[2024-03-08 11:25] LABS: Estimated Average Glucose 117 mg/dL; Hemoglobin A1C 118.7662 umol/L; Hemoglobin A1c % 5.7 % (<6.0)
[2024-03-08 11:28] LABS: Creatinine Urine 79.42 mg/dL; Microalbum/Creatinine Ratio Ur 32.7 ug/mg cr (<30)
[2024-03-08 11:34] LABS: Anion Gap 12 (12-20); Aspartate Amino Transferase 14 U/L (5-37); Blood Urea Nitrogen 11 mg/dL (9-16); Carbon Dioxide 26 mmol/L (22-29); Chloride 105 mmol/L (96-108); Estimated Glomerular Filt Rate > 60; Glucose Fasting 121 mg/dL (60-99); Iron 38 mcg/dL (45-160); Percent Iron Saturation 14 % (15-50); Potassium 4.6 mmol/L (3.3-5.1); Sodium 138 mmol/L (135-145); Total Iron Binding Capacity 265 mcg/dL (228-428); Unsaturated Iron Binding 227 ug/dL
[2024-03-08 11:56] LABS: Alanine Aminotransferase 13 U/L (0-40)
== END 2024-03-08 08:05 | disposition home or self-care (01) ==
LOC: HO.10HDL 08:04
PROVIDERS: Visit Provider Family Medicine
DX: I10 Essential (primary) hypertension (principal); D64.9 Anemia, unspecified; E78.00 Pure hypercholesterolemia, unspecified; E11.9 Type 2 diabetes mellitus without complications; Z79.899 Other long term (current) drug therapy
CPT/HCPCS: 36415; 80051; 82043; 82550; 82565; 82570; 82947; 83036; 83540; 84450; 84460; 84520; 85025

== ENCOUNTER 2024-04-11 10:44 | Outpatient (REF) | payer BC, SELFPAY | END 2024-04-11 10:45 | disposition home or self-care (01) | LOC: HO.CT 10:44 | PROVIDERS: PCP Family Medicine; Visit Provider Physician Assistant Medical | DX: Z12.2 Encounter for screening for malignant neoplasm of respiratory organs (principal); Z87.891 Personal history of nicotine dependence | CPT/HCPCS: 71271 ==

== ENCOUNTER 2024-04-18 10:46 | Outpatient (AMB) | payer BC, SELFPAY ==
[2024-04-18 10:57] VITALS: BP 122/68; PULSE 76; O2SAT 96; BMI 44.9
--- NOTE | 2024-04-18 10:57 | A.OFFVIS_ITS ---
Vital Signs 04/18/24 10:57 Height 5 ft 9 in Weight 304 lb 3.806 oz BMI 44.9 BP 122/68 Blood Pressure Location Lt brachial Position Sitting Pulse 76 Pulse Source Pulse Oximeter Pulse Oximetry (%) 96 Oxygen Delivery Method Room Air Intake Visit Reasons: Obstructive sleep apnea Intake Note: pt is here for follow up and is using cpap, using albuterol little more than usual. 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 Allergies No Known Allergies [No Known Allergies*] Allergy (Verified 04/18/24 11:40) Medication List - Last Reconciled 04/18/24 by Hazel Peters MD albuterol sulfate 90 mcg/actuation (ProAir HFA) 2 puffs inhalation Q4-6H PRN apple cider vinegar 500 mg PO DAILY aspirin 81 mg PO DAILY atorvastatin 10 mg PO DAILY clotrimazole 10 mg mucous membrane TID PRN fish,bora,flax oils-om3,6,9no1 400-400-400 mg (Triple [place] 3-6-9) 1 cap PO DAILY gqzeebyaoyc-mhpufzzob-qlvdgugp 200-62.5-25 mcg (Trelegy Ellipta) 1 inh inhalation DAILY lisinopril 10 mg PO DAILY lysine 1,000 mg PO DAILY metformin ER 500 mg PO DAILY montelukast 10 mg PO DAILY multivitamin (Daily Multi-Vitamin tablet) 1 tab PO DAILY nystatin 500,000 units PO TID PRN sildenafil 100 mg PO DAILY PRN theophylline ER 300 mg PO Q12H Do you need a note to return to daycare/school/sports/work: No HPI HPI Obstructive sleep apnea: Details: RACHAEL IS 63 YEARS OLD GENTLEMAN WITH MORBID OBESITY, DIAGNOSIS OF SEVERE OBSTRUCTIVE SLEEP APNEA, HE IS ALSO A [employer]IFELONG SMOKER WITH DIAGNOSIS OF COPD. HE STILL SMOKES ABOUT 15 CIGARETTES A DAY. HE IS HAVING INCREASED SHORTNESS OF BREATH ON WALKING AND ALSO WHEN HE WAKES UP DURING THE NIGHT. HE ENDS UP USING PROAIR, 2 PUFFS EVERY 4-6 HOURS. HE ENDS UP OVER USING PROAIR SO HE RUNS SHORT OF THIS MEDICINE BEFORE HE IS DUE FOR A REFILL. ON QUESTIONING HE IS USING TRELEGY ELLIPTA 1 INHALATION DAILY. HE TENDS TO USE ALBUTEROL, WHEN HE GETS SHORT OF BREATH ON WAKING UP AND GOING TO THE BATHROOM OR EVEN WALKING AROUND IN THE HOUSE DURING THE DAYTIME. HE CONTINUES TO HAVE MODERATE DEGREE OF COUGH, WHICH IS DEFINITELY RELATED TO HIS ONGOING SMOKING. HE HAD BENEFITED FROM THE PULMONARY REHAB PROGRAM, BUT NOW THAT HE IS NOT IN THE PROGRAM, AND HE HAS INCREASED HIS SMOKING, HE IS GETTING MORE SHORT OF BREATH ON EXERTION. FOR HIS SLEEP APNEA HE DOES USE CPAP REGULARLY AND SLEEPS WELL, EXCEPT FOR WAKING 1 OR 2 TIMES DURING THE NIGHT TO GO TO THE BATHROOM. 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 Systems Const All systems reviewed & are unremarkable except as noted in HPI and below Eyes Reports no additional complaints ENT Reports nasal congestion (Mild) Card Denies chest pain, Denies irregular heart rhythm, Reports leg edema (Only mild, to words the afternoon) and Reports dyspnea on exertion (Mild to moderate) Resp Reports as per HPI and Reports dyspnea on exertion (Mild to moderate) GI Reports no additional complaints Reports no additional complaints Musc Reports back pain and Reports arthralgias Skin/Breast Reports system reviewed and no additional complaints, except as documented Neuro Reports no additional complaints Psych Reports no additional complaints Physical Exam Vital Signs: Last Vital Signs Pulse 76 04/18/24 10:57 BP 122/68 04/18/24 10:57 Pulse Ox 96 04/18/24 10:57 Oxygen Delivery Method Room Air 04/18/24 10:57 BMI result Body Mass Index 44.9 Const General: comfortable, no acute distress, alert and awake Orientation/consciousness: patient oriented x3 HEENT Other: He is grossly overweight with a round face Head: Yes normal to inspection General nose exam: No nasal polyps present and No nasal discharge present Face and sinus: Yes sinuses nontender Mouth: oropharynx normal (No white spots are erythema noted) Throat: No posterior oropharynx normal (Very narrow and crowded, Mallampati class 4) Eyes General: appearance normal, both eyes and all related structures Neck Neck: Yes normal visual inspection, No no lymphadenopathy (Enlarged submandibular glands on both sides), Yes trachea midline, Yes no JVD and Yes other (Extremely obese) Thyroid: Thyroid normal Chest Chest palpation & inspection: normal inspection of the chest, normal palpation of entire chest wall and no tenderness Resp Other: Percussion note is barely perceptible. Breath sounds are distant especially over the basilar areas. HE DOES HAVE SOME WHEEZES OVER THE LEFT CHEST, NO CREPITATIONS . Cardio Palpation: PMI not normal (Not palpable) Rate: regular rate Rhythm: regular rhythm Heart sounds: no gallops and no murmurs GI Palpation (GI): Soft to palpation, nontender, No hepatosplenomegaly present, no masses and Other GI palpation findings present (Grossly obese and protuberant) Auscultation: normal bowel sounds Back/Spine/Pelvis Thoracic/Lumbar Spine: thoracic and lumbar spine normal to inspection and thoraco-lumbar ROM limited Skin General skin exam: no rashes or lesions noted Neuro General: patient oriented x3 and no focal motor deficits Cranial nerves: Yes CN's II-XII intact bilaterally Extrem General: Yes normal to inspection, No no joint enlargement (Knees are enlarged and somewhat tender), Yes no clubbing, cyanosis or edema and Yes no calf tenderness Psych Appearance: grossly normal and well kempt Speech and movement: Normal speech and movement present Results Reviewed Results Reviewed: HAD LDCT . OF THE CHEST LAST WEEK, IT HAS NOT BEEN READ OFFICIALLY. Assessment & Plan Assessment & Plan (1) Morbid obesity: Comment: THIS IS A CHRONIC PROBLEM, HE IS WELL AWARE OF THIS. HE IS TRYING TO BE MORE ACTIVE, AND HAS CUT DOWN THE INTAKE OF CARBS AND CALORIES. HAD LOST 17 MORE LBs. BUT NOW AT A STANDS STILL, HAS ACTUALLY GAINED ABOUT 6 LB OF WEIGHT SINCE LAST VISIT. Code(s): E66.01 - Morbid (severe) obesity due to excess calories Category: Medical Plan: DISCUSSED ABOUT THE WEIGHT ISSUE AND I HAVE REINFORCED THAT HE NEEDS TO CUT DOWN THE CALORIES INTAKE, HE NEEDS TO REMAIN MORE ACTIVE. (2) COPD (chronic obstructive pulmonary disease): Comment: HE DOES HAVE SEVERE OBSTRUCTIVE PULMONARY DISEASE. COPD WAS IMPROVED AND REMAINED STABLE BUT NOW THAT HE STILL SMOKES 15 CIGARETTES A DAY HE IS GETTING MORE CONGESTED. HE TENDS TO OVER USE THE ALBUTEROL. Code(s): J44.9 - Chronic obstructive pulmonary disease, unspecified Category: Medical Plan: CONTINUE TO USE TRELEGY ELLIPTA 1 INHALATION DAILY. USE ALBUTEROL HFA 2 PUFFS Q 4-6 HOURS BUT ONLY P.R.N.. I EXPLAINED TO HIM AT LENGTH THAT THE USE OF ALBUTEROL IS ONLY FOR P.R.N. WHEN HE HAS PERSISTENT WHEEZING. IT SHOULD NOT BE USED FOR DYSPNEA ON EXERTION, LIKE WHEN HE WALKS AROUND IN THE HOUSE OR GOES TO THE BATHROOM. IN THAT CASE HE SHOULD JUST SIT DOWN AND TAKE SOME DEEP BREATHS AND LET HIS DYSPNEA SIMILAR DONE. (3) ALIN (obstructive sleep apnea): Comment: DIAGNOSED ON 10/10/10 WITH SEVERE ALIN, RDI 72.6 TREATED VERY WELL WITH THE USE OF CPAP . HE IS VERY COMPLIANT IN USING THE CPAP, AND DEFINITELY BENEFITING FROM ITS USE. COMPLIANCE IS EXCELLENT. Code(s): G47.33 - Obstructive sleep apnea (adult) (pediatric) Category: Medical Plan: CONTINUE TO USE CPAP REGULARLY (4) Pulmonary nodule: Comment: HE IS BEING FOLLOWED IN ANNUAL LUNG SCREENING PROGRAM LAST LOW-DOSE CT SCAN IN SHOWED A STABLE 6 MM NODULE IN LEFT UPPER LOBE. ALSO HAS A SMALL NODULE IN THE RIGHT UPPER LOBE. HAD RECENT CT SCAN, OFFICIAL READING IS PENDING. Code(s): R91.1 - Solitary pulmonary nodule Category: Medical Plan: HE WILL CONTINUE TO HAVE ANNUAL LUNG SCREENING, WITH LDCT (5) Personal history of nicotine dependence: Comment: (Current smoker -onset 15 - 4-1ppd x 42yrs, 35pyh), still smoking about 15 cigarettes a day, which is actually increased from before. Code(s): Z87.891 - Personal history of nicotine dependence Category: Medical Plan: I discussed with him at length and explained that he is cough and shortness of breath is worse because he is smoking. He needs to stop smoking completely, or at least cut down to no more than 5 or 6 cigarettes a day. Medications: Changed From clotrimazole 10 mg mucous membrane TID 7 days 21 tabs 1RF ORAL THRUSH To clotrimazole 10 mg mucous membrane TID PRN ORAL THRUSH From nystatin administer 1/2 of dose in each side of the mouth SWISH AND SWALLOW 500,000 units (5 mL) PO TID 15 days 225 mL 0RF ORAL THRUSH To nystatin administer 1/2 of dose in each side of the mouth SWISH AND SWALLOW 500,000 units PO TID PRN ORAL THRUSH Coding Level of Care Code Est Pt Level 4 (62400) Diagnoses Morbid obesity E66.01 COPD (chronic obstructive pulmonary disease) J44.9 ALIN (obstructive sleep apnea) G47.33 Pulmonary nodule R91.1 Personal history of nicotine dependence Z87.891
== END 2024-04-18 11:19 | disposition home or self-care (01) ==
PROVIDERS: PCP Family Medicine; Visit Provider Internal Medicine
DX: E66.01 Morbid (severe) obesity due to excess calories (principal); J44.9 Chronic obstructive pulmonary disease, unspecified; G47.33 Obstructive sleep apnea (adult) (pediatric); R91.1 Solitary pulmonary nodule; Z87.891 Personal history of nicotine dependence
CPT/HCPCS: 99214

== ENCOUNTER → 2024-07-13 10:53 | Outpatient (REF) | payer BC, SELFPAY ==
--- NOTE | 2024-07-13 10:57 | CA_ITS ---
Transthoracic Echocardiogram Patient (Last, First, Middle): Tushar Caceres T Gender: Male Date of : 1960 Age: 63 Procedure Date: 07/13/2024 Procedure Type: Transthoracic Echocardiogram Location: OP Height: 175.26 cm Weight: 141.07 kg BSA: 2.49 m2 Heart Rate: bpm BP: 138 / 62 mmHg Account Technician: TO Referring MD: David Smith MD Outside Residential Sales Professional: Salvador Villaseonr MD Symptoms: I35.0 NON RHEUMATIC AVS Study Quality: Technically Difficult/Contrast ECG Rhythm: Sinus Conclusions: - 1. Technically limited study 2. Hyperdynamic LVEF of greater than 70% 3. Oujj-hd-pegiwfir aortic stenosis with at least moderate mitral calcification Findings Procedure Information Contrast agent, definity, is being given per protocol without apparent complications. Left Ventricle The left ventricle was not well visualized. Normal left ventricular cavity size. The left ventricular systolic function is hyperdynamic. The visually estimated ejection fraction is >70%. Spectral Doppler is indicative of an impaired relaxation filling pattern. Elevated filling pressures. E/E prime ratio is >15, consistent with elevated filling pressures. Right Ventricle The right ventricle was not well visualized. Atria The left atrium was not well visualized. Interatrial shunt cannot be excluded. The right atrium was not well visualized. Aortic Valve The aortic valve was not well visualized. There is moderate calcification of the aortic valve. There is mild to moderate aortic valve stenosis. There is no aortic valve regurgitation. Mitral Valve The mitral valve was not well visualized. There is moderate mitral annular calcification. There is no mitral valve stenosis. Pulmonic Valve The pulmonic valve was not well visualized. Tricuspid Valve The tricuspid valve was not well visualized. Tricuspid regurgitation envelope is inadequate for calculation of right ventricular systolic pressure. Indeterminate right atrial pressure. Great Vessels The aorta was not well visualized. The pulmonary artery was not well visualized. Venous The inferior vena cava was not well visualized. Pericardium/Pleural The pericardium was not well visualized. Measurements 2D Linear Measurements LVOT Diam: 2.20 3.0+(-)1.3 cm 2D Systolic Function EF 4C: 78.50 >55% Mitral Valve MV VTI: 0.48 MV Pk Gilles: 1.76 MV Mn Gilles: 1.03 MV Pk Grad: 12.00 MV Mn Grad: 5.00 MV Pk E: 1.21 MV PK A: 1.58 MV Decel Time: 287.00 E/A: 0.80 E'Lateral: 7.07 E'Medial: 4.90 E/E' Med: 24.70 E/E' Lat: 17.10 PHT: 84.00 MVA PHT: 2.62 MVA Continuity: 2.40 Decel [place]: 4.22 Aortic Valve AoV Pk Gilles: 3.00 AoV Mn Gilles: 2.29 AoV VTI: 0.60 AoV Pk Grad: 36.00 Aov Mn Grad: 23.00 TIA Cont.VTI: 1.95 LVOT LVOT Pk Gilles: 1.52 LVOT Mn Gilles: 1.15 LVOT VTI: 0.31 LVOT Pk Grad: 9.00 LVOT Mn Grad: 6.00 LVOT Diam: 2.20 LVOT Area: 3.80 Diastolic Function MV Pk E: 1.21 MV Pk A: 1.58 E/A: 0.80 E'Medial: 4.90 E/E' Med: 24.70 E' Laterial: 7.07 E/E' Lat: 17.10 Right Ventricle TAPSE (mm): 22.00 TVS' Gilles: 17.00 Tricuspid Valve RA Press: 3.00 Great Vessels Aorta Sinus of Valsalva: 3.17 2.0-3.5 cm Updated in Other Vendor System with Status of Final Salvador Villasenor MD electronically signed on 07/14/2024 12:34:36 PM with status of Final
--- OUTSIDE RECORDS SUMMARY | 2024-07-13 12:43 | XMS_ITS | Patient Health Record ---
Author Organization [facility] Address [address] [place] [address] Care Team Providers Care Internist Name Role Phone Luis STEELE, David Primary Care Provider UnavailEh Wu Unavailable [phone] ALLERGIES No Known Allergies REASON FOR REFERRAL No Information MEDICATIONS Medication SIG (Take, Route, Frequency, Duration) Notes Start Date End Date Status CoQ-10 Active Aspirin Adult Low Dose 81 MG 1 tablet Orally Once a day for 30 day(s) Active Turmeric Active Apple Cider Vinegar 500 MG as directed Orally Active [place] 3-6-9 Complex - as directed Orally Active AndroGel Pump Active ProAir HFA Active Atorvastatin Calcium Active Multivitamin Active Lisinopril Active Advair Diskus Active Spiriva HandiHaler A ctive Lysine Active IMMUNIZATIONS Vaccine Route Administration Date Status Comme nts Influenza Unknown 03/09/2021 Administered Influenza Unknown 10/12/2018 Refused SOCIAL HISTORY Tobacco Use: Social History Observation Description Date Details (start date - stop date) Current Smoker NA - NA Sex Assigned At : Social History Observation Description Sex Assigned At Unknown Tobacco Use/Smoking Question Answer Notes Patient is a current smoker How many cigarettes a day do you smoke? 11-20 PROBLEMS Problem Type ICD Code Onset Dates Problem Status W/U Status Risk SNOMED Code Notes Problem Encounter for screening for malignant neoplasm of colon (Z12.11) Active confirmed 440697577 Problem History of adenomatous polyp of colon (Z86.010) Active confirmed 418919999 Problem Encounter for screening for malignant neoplasm of rectum (Z12.12) Active confirmed Screening for malignant neoplasm of rectum (607859529) Problem Preprocedural examination (Z01.818) Active confirmed 62345555 Problem Fatty liver (K76.0) Active confirmed 924184296 Problem Liver fibrosis (K74.0) Active confirmed 37940137 Problem Liver fibrosis (K74.00) Active confirmed 01841788 PLAN OF TREATMENT Pending Test Test Name Order Date LIVER PROFILE 07/15/2018 CBC w DIFF 07/15/2018 PROTHROMBIN TIME (PT, INR) 07/15/2018 ALPHA-FETOPROTEIN,TUMOR MARKER 9 Future Test Test Name Order Date COLONOSCOPY 08/28/2015 Insurance Providers Payer Name Payer Address Payer Phone Subscriber Number Group Number Insured Name Patient Relationship to Insured Coverage Start Date Coverage End Date [facility] [address] [place], [place] [id number] RACHAEL MURO Self - patient is the insured MEDICAL (GENERAL) HISTORY Medical History History ICD Code Hypertension Denies PR,DM,CVA,renal disease COPD Sleep apnea-uses a CPAP mask Hyperlipidemia Screening colonoscopy in Oct--one small tubular adenoma removed, diverticulosis Obesity--he has been seen by Dr. Perez and lost 40 pounds in 2017 and the early part of 2018 Fatty liver--seen on ultraso und--normal LFTs in 2017, normal iron studies, negative hepatitis B and C studies, liver elastography on ultrasound in 2017 described mild to moderate fibrosis, but with a normal liver fibrosis blood test. Surgical History Surgery Date(Month/Year)
== END ==
LOC: HO.CARD 10:53
PROVIDERS: PCP Family Medicine; Visit Provider Family Medicine
DX: I35.0 Nonrheumatic aortic (valve) stenosis (principal)
CPT/HCPCS: 93306; Q9957

== ENCOUNTER → 2024-07-13 10:57 | Outpatient (BNV) | payer BC, SELFPAY | PROVIDERS: PCP Family Medicine; Visit Provider Internal Medicine Cardiovascular Disease | DX: I35.0 Nonrheumatic aortic (valve) stenosis (principal); I35.8 Other nonrheumatic aortic valve disorders; I34.81 Nonrheumatic mitral (valve) annulus calcification | CPT/HCPCS: 93306 ==

== ENCOUNTER 2024-08-15 11:15 | Outpatient (AMB) | payer MEDICARE, SELFPAY ==
[2024-08-15 11:17] VITALS: BP 130/70; PULSE 84; O2SAT 94; BMI 46.9
--- NOTE | 2024-08-15 11:17 | A.OFFVIS_ITS ---
Vital Signs 08/15/24 11:17 Height 5 ft 9 in Weight 317 lb 7.45 oz BMI 46.9 BP 130/70 Blood Pressure Location Lt brachial Position Sitting Pulse 84 Pulse Source Pulse Oximeter Pulse Oximetry (%) 94 Oxygen Delivery Method Room Air Intake Visit Reasons: Obstructive sleep apnea Intake Note: pt is here for follow up of ALIN, he is at his baseline, cpap is every night. pt would like a 3 month supply sent to local pharmacy on albuterol HFA Cloud Services Architect Required: No Allergies No Known Allergies [No Known Allergies*] Allergy (Verified 08/15/24 11:54) Do you need a note to return to daycare/school/sports/work: No HPI HPI Obstructive sleep apnea: Details: 64 years old gentleman who is morbidly obese and has history of obstructive sleep apnea as well as severe COPD, comes for follow-up after 4 months. He claims that he is doing well and sleeping good with the CPAP. Uses his CPAP very regularly because without that he is not. Going to be able to sleep Breathing has been relatively. Stable with his current medical regimen The only problem is that he still smokes 15-20 cigarettes a day, And he is not able to lose weight rather has gained some weight in the last 4 months. This is because he has been relatively sedentary and not walking around. [facility] Medical History Submandibular lymphadenopathy Dyspnea on exertion Pulmonary nodule Tubular adenoma of colon Personal history of nicotine dependence Morbid obesity Back pain ALIN (obstructive sleep apnea) Low serum testosterone HLD (hyperlipidemia) HTN (hypertension) Emphysema lung Hypogonadism male Erectile disorder due to medical condition in male COPD (chronic obstructive pulmonary disease) Surgical History History of colonoscopy Social History Household Members: None Tobacco use type: Cigarette Cigarettes Per Day: 15 Years Smoked: 45 Second Hand Smoke Exposure: No 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 Systems Const All systems reviewed & are unremarkable except as noted in HPI and below Eyes Reports no additional complaints ENT Reports nasal congestion (Mild) Card Denies chest pain, Denies irregular heart rhythm, Reports leg edema (Only mild, to words the afternoon) and Reports dyspnea on exertion (Mild to moderate) Resp Reports as per HPI and Reports dyspnea on exertion (Mild to moderate) GI Reports no additional complaints Reports no additional complaints Musc Reports back pain and Reports arthralgias Skin/Breast Reports system reviewed and no additional complaints, except as documented Neuro Reports no additional complaints Psych Reports no additional complaints Physical Exam Vital Signs: Last Vital Signs Pulse 84 08/15/24 11:17 BP 130/70 08/15/24 11:17 Pulse Ox 94 08/15/24 11:17 Oxygen Delivery Method Room Air 08/15/24 11:17 BMI result Body Mass Index 46.9 Const General: comfortable, no acute distress, alert and awake Orientation/consciousness: patient oriented x3 HEENT Other: He is grossly overweight with a round face Head: Yes normal to inspection General nose exam: No nasal polyps present and No nasal discharge present Face and sinus: Yes sinuses nontender Mouth: oropharynx normal (No white spots are erythema noted) Throat: No posterior oropharynx normal (Very narrow and crowded, Mallampati class 4) Eyes General: appearance normal, both eyes and all related structures Neck Neck: Yes normal visual inspection, No no lymphadenopathy (Enlarged submandi bular glands on both sides), Yes trachea midline, Yes no JVD and Yes other (Extremely obese) Thyroid: Thyroid normal Chest Chest palpation & inspection: normal inspection of the chest, normal palpation of entire chest wall and no tenderness Resp Other: Percussion note is barely perceptible. Breath sounds are distant especially over the basilar areas. No wheezes or crepitations are heard today. Cardio Palpation: PMI not normal (Not palpable) Rate: regular rate Rhythm: regular rhythm Heart sounds: no gallops and no murmurs GI Palpation (GI): Soft to palpation, nontender, No hepatosplenomegaly present, no masses and Other GI palpation findings present (Grossly obese and protuberant) Auscultation: normal bowel sounds Back/Spine/Pelvis Thoracic/Lumbar Spine: thoracic and lumbar spine normal to inspection and thoraco-lumbar ROM limited Skin General skin exam: no rashes or lesions noted Neuro General: patient oriented x3 and no focal motor deficits Cranial nerves: Yes CN's II-XII intact bilaterally Extrem General: Yes normal to inspection, No no joint enlargement (Knees are enlarged and somewhat tender), Yes no clubbing, cyanosis or edema and Yes no calf tenderness Psych Appearance: grossly normal and well kempt Speech and movement: Normal speech and movement present Results Reviewed Results Reviewed: Compliance report for the last 30 nights is reviewed and he has used his CPAP regularly, 100% of the nights. Average use it per night 6 hours 35 minutes. The residual AHI is only 0.3 Assessment & Plan Assessment & Plan (1) COPD (chronic obstructive pulmonary disease): Comment: HE DOES HAVE SEVERE OBSTRUCTIVE PULMONARY DISEASE. COPD WAS IMPROVED AND REMAINED STABLE BUT NOW THAT HE STILL SMOKES 15 CIGARETTES A DAY HE IS GETTING MORE CONGESTED. HE he is using albuterol only about 3 to 4 times a day. Code(s): J44.9 - Chronic obstructive pulmonary disease, unspecified Category: Medical Plan: Continue Trelegy Ellipta 1 inhalation daily. Ventolin HFA 2 puffs Q 4-6 hours p.r.n.. Theophylline ER 300 mg b.i.d.. (2) ALIN (obstructive sleep apnea): Comment: DIAGNOSED ON 10/10/10 WITH SEVERE ALIN, RDI 72.6 TREATED VERY WELL WITH THE USE OF CPAP . HE IS VERY COMPLIANT IN USING THE CPAP, AND DEFINITELY BENEFITING FROM ITS USE. COMPLIANCE IS EXCELLENT. Code(s): G47.33 - Obstructive sleep apnea (adult) (pediatric) Category: Medical Plan: Commended for good compliance and advised to keep on using the CPAP every night regularly. (3) Personal history of nicotine dependence: Comment: (Current smoker -onset 15 08/02-1ppd x 42yrs, 35pyh), still smoking about 15 cigarettes a day, which is actually increased from before. Code(s): Z87.891 - Personal history of nicotine dependence Category: Medical Plan: Talked to him about smoking once again. Stressed that he needs to quit smoking or at least cut down the number of cigarettes He finds it hard to cut down the number of cigarettes but he promises that he will do his best. (4) Pulmonary nodule: Comment: HE IS BEING FOLLOWED IN ANNUAL LUNG SCREENING PROGRAM LAST LOW-DOSE CT SCAN IN SHOWED A STABLE 6 MM NODULE IN LEFT UPPER LOBE. ALSO HAS A SMALL NODULE IN THE RIGHT UPPER LOBE. HAD RECENT CT SCAN, IN 04/24, WHICH DID NOT SHOW ANY NEW CHANGE. Code(s): R91.1 - Solitary pulmonary nodule Category: Medical Plan: CONTINUE TO ANNUAL LUNG SCREENING WITH LOW-DOSE CT SCAN Coding Level of Care Code Est Pt Level 3 (64353) Diagnoses COPD (chronic obstructive pulmonary disease) J44.9 ALIN (obstructive sleep apnea) G47.33 Personal history of nicotine dependence Z87.891 Pulmonary nodule R91.1
--- OUTSIDE RECORDS SUMMARY | 2024-08-15 13:20 | XMS_ITS | Patient Health Record ---
Author Organization [facility] Address [address] [place] [address] Care Team Providers Care Sound Effects Supervisor Name Role Phone Luis STEELE, David Primary Care Provider UnavailEh Wu Unavailable [phone] Allergies No Known Allergies Reason For Referral No Information Medications Medication SIG (Take, Route, Frequency, Duration) Notes Start Date End Date Status CoQ-10 Active Aspirin Adult Low Dose 81 MG 1 tablet Orally Once a day for 30 day(s) Active Turmeric Active Apple Cider Vinegar 500 MG as directed Orally Active [place] 3-6-9 Complex - as directed Orally Active AndroGel Pump Active ProAir HFA Active Atorvastatin Calcium Active Multivitamin Active Lisinopril Active Advair Diskus Active Spiriva HandiHaler A ctive Lysine Active Immunizations Vaccine Route Administration Date Status Comme nts Influenza Unknown 03/09/2021 Administered Influenza Unknown 10/12/2018 Refused Social History Tobacco Use: Social History Observation Description Date Details (start date - stop date) Current Smoker NA - NA Tobacco Use/Smoking Question Answer Notes Patient is a current smoker How many cigarettes a day do you smoke? 11-20 Section Notes: Smoker; no alcohol. Smoker; no alcohol. Smoker; no alcohol. on nicotine patch; no alcoho l. on nicotine patch; no alcohol. 2020 smoker Problems Problem Type SNOMED Code ICD Code Onset Dates Problem Status W/U Status Risk Notes Problem 079548363 Encounter for screening for malignant neoplasm of colon (Z12.11) Active confirmed Problem 768714251 History of adenomatous polyp of colon (Z86.010) Active confirmed Problem Screening for malignant neoplasm of rectum (615933514) Encounter for screening for malignant neoplasm of rectum (Z12.12) Active confirmed Problem 35015364 Preprocedural examination (Z01.818) Active confirmed Problem 105763682 Fatty liver (K76.0) Active confirmed Problem 84123685 Liver fibrosis (K74.0) Active confirmed Problem 88319880 Liver fibrosis (K74.00) Active confirmed Plan Of Treatment Pending Test Test Name Order Date LIVER PROFILE 07/15/2018 CBC w DIFF 07/15/2018 PROTHROMBIN TIME (PT, INR) 07/15/2018 ALPHA-FETOPROTEIN,TUMOR MARKER 9 Future Test Test Name Order Date COLONOSCOPY 08/28/2015 Insurance Providers Payer Name Payer Address Payer Phone Subscriber Number Group Number Insured Name Patient Relationship to Insured Coverage Start Date Coverage End Date [facility] [address] [place], [place] [id number] JINA RACHAEL Self - patient is the insured Medical (General) History Medical History History ICD Code Hypertension Denies [place],DM,CVA,renal disease COPD Sleep apnea-uses a CPAP mask [...]
--- OUTSIDE RECORDS SUMMARY | 2024-08-15 13:20 | XMS_ITS ---
Author Name [facility] Organization Unknown Care Team Organization Name Specialty Phone Email Start Date End [facility] [facility] 04/15/2024
== END 2024-08-15 11:55 | disposition home or self-care (01) ==
LOC: HO.HPS 11:15
PROVIDERS: PCP Family Medicine; Visit Provider Internal Medicine
DX: J44.9 Chronic obstructive pulmonary disease, unspecified (principal); G47.33 Obstructive sleep apnea (adult) (pediatric); Z87.891 Personal history of nicotine dependence; R91.1 Solitary pulmonary nodule
CPT/HCPCS: 99213

== ENCOUNTER → 2024-08-15 11:15 | Outpatient (BNVA) | payer MEDICARE, SELFPAY | PROVIDERS: PCP Family Medicine; Visit Provider Internal Medicine | DX: G47.33 Obstructive sleep apnea (adult) (pediatric) (principal); J44.9 Chronic obstructive pulmonary disease, unspecified; R91.1 Solitary pulmonary nodule; Z87.891 Personal history of nicotine dependence | CPT/HCPCS: 99212 ==

== ENCOUNTER 2024-09-06 07:58 | Outpatient (REF) | payer MEDICARE, SELFPAY ==
--- OUTSIDE RECORDS SUMMARY | 2024-09-06 08:04 | XMS_ITS | Patient Health Record ---
Author Organization [facility] Address [address] [place] [address] Care Team Providers Care Auto Rental Supervisor Name Role Phone Luis STEELE, David Primary Care Provider UnavailEh Wu Unavailable [phone] Allergies No Known Allergies Reason For Referral No Information Medications Medication SIG (Take, Route, Frequency, Duration) Notes Start Date End Date Status CoQ-10 Active Aspirin Adult Low Dose 81 MG 1 tablet Orally Once a day for 30 day(s) Active Turmeric Active Apple Cider Vinegar 500 MG as directed Orally Active [place] 3-6-9 Complex - as directed Orally Active [...] Problem Status W/U Status Risk Notes Problem 878665771 Encounter for screening for malignant neoplasm of colon (Z12.11) Active confirmed Problem 715157921 History of adenomatous polyp of colon (Z86.010) Active confirmed Problem Screening for malignant neoplasm of rectum (273396140) Encounter for screening for malignant neoplasm of rectum (Z12.12) Active confirmed Problem 90679336 Preprocedural examination (Z01.818) Active confirmed Problem 309409491 Fatty liver (K76.0) Active confirmed Problem 64643099 Liver fibrosis (K74.0) Active confirmed Problem 80673781 Liver fibrosis (K74.00) Active confirmed Plan Of Treatment Pending Test Test Name Order Date LIVER PROFILE 07/15/2018 CBC w DIFF 07/15/2018 PROTHROMBIN TIME (PT, INR) 07/15/2018 ALPHA-FETOPROTEIN,TUMOR MARKER 9 Future Test Test Name Order Date COLONOSCOPY 08/28/2015 Insurance Providers Payer Name Payer Address Payer Phone Subscriber Number Group Number Insured Name Patient Relationship to Insured Coverage Start Date Coverage End Date [facility] [address] [place], [place] [id number] JINA RACHAEL Self - patient is the insured Medical (General) History Medical History History ICD Code Hypertension Denies [place],DM,CVA,renal disease COPD Sleep apnea-uses a CPAP mask [...]
[2024-09-06 10:50] LABS: Estimated Average Glucose 123 mg/dL; Hemoglobin A1C 156.5143 umol/L; Hemoglobin A1c % 5.9 % (<6.0); Total Hemoglobin (HGBA1C) 3870.8623 umol/L
[2024-09-06 11:24] LABS: Anion Gap 12 (12-20); Blood Urea Nitrogen 18 mg/dL (9-16); Carbon Dioxide 26 mmol/L (22-29); Chloride 105 mmol/L (96-108); Estimated Glomerular Filt Rate > 60; Glucose Fasting 123 mg/dL (60-99); Potassium 4.6 mmol/L (3.3-5.1); Sodium 138 mmol/L (135-145)
== END 2024-09-06 07:59 | disposition home or self-care (01) ==
LOC: HO.10HDL 07:58
PROVIDERS: Visit Provider Family Medicine
DX: E11.9 Type 2 diabetes mellitus without complications (principal); I10 Essential (primary) hypertension
CPT/HCPCS: 36415; 80051; 82565; 82947; 83036; 84520

== ENCOUNTER 2024-10-11 07:49 | Outpatient (REF) | payer MEDICARE, SELFPAY ==
--- OUTSIDE RECORDS SUMMARY | 2024-10-11 07:52 | XMS_ITS | Patient Health Record ---
Author Organization [facility] Address [address] [place] [address] Care Team Providers Care Director Social Welfare Name Role Phone Luis STEELE, David Primary Care Provider UnavailEh Wu Unavailable [phone] Allergies No Known Allergies Reason For Referral No Information Medications Medication SIG (Take, Route, Frequency, Duration) Notes Start Date End Date Status CoQ-10 Active Aspirin Adult Low Dose 81 MG 1 tablet Orally Once a day for 30 day(s) Active Turmeric Active Apple Cider Vinegar 500 MG as directed Orally Active [place] 3-6-9 Complex - as directed Orally Active [...] Problem Status W/U Status Risk Notes Problem 174895824 Encounter for screening for malignant neoplasm of colon (Z12.11) Active confirmed Problem 091004296 History of adenomatous polyp of colon (Z86.010) Active confirmed Problem Screening for malignant neoplasm of rectum (750917398) Encounter for screening for malignant neoplasm of rectum (Z12.12) Active confirmed Problem 22480797 Preprocedural examination (Z01.818) Active confirmed Problem 989080649 Fatty liver (K76.0) Active confirmed Problem 38473999 Liver fibrosis (K74.0) Active confirmed Problem 09716015 Liver fibrosis (K74.00) Active confirmed Plan Of Treatment Pending Test Test Name Order Date LIVER PROFILE 07/15/2018 CBC w DIFF 07/15/2018 PROTHROMBIN TIME (PT, INR) 07/15/2018 ALPHA-FETOPROTEIN,TUMOR MARKER 9 Future Test Test Name Order Date COLONOSCOPY 08/28/2015 Insurance Providers Payer Name Payer Address Payer Phone Subscriber Number Group Number Insured Name Patient Relationship to Insured Coverage Start Date Coverage End Date [facility] [address] [place], [place] [id number] [phone] [id number] JINA RACHAEL Self - patient is the insured Medical (General) History Medical History History ICD Code Hypertension Denies [place],DM,CVA,renal disease COPD Sleep apnea-uses a CPAP mask [...]
[2024-10-11 09:51] LABS: MANUAL DIFF FLAG NO
[2024-10-11 10:29] LABS: Estimated Average Glucose 126 mg/dL; Hemoglobin A1C 157.0486 umol/L; Total Hemoglobin (HGBA1C) 3746.2034 umol/L
[2024-10-11 10:30] LABS: Basophils Absolute Auto 0.1 X10*3/uL (0.0-0.2); Basophils Percent Auto 0.7 % (0-2); Eosinophils Absolute Auto 0.4 X10*3/uL (0.0-0.4); Eosinophils Percent Auto 2.6 % (0-4); Hematocrit 45.3 % (42.0-52.0); Hemoglobin 14.6 g/dl (14.0-18.0); Imm Gran Abs Auto 0.09 X10*3/uL (0.00-0.03); Imm Gran Pct Auto 0.6 % (0.0-0.4); Lymphocytes Absolute Auto 2.2 X10*3/uL (1.2-4.9); Lymphocytes Percent Auto 14.3 % (20-40); Mean Corpuscular HGB Conc 32.2 g/dl (31.0-36.0); Mean Corpuscular Hemoglobin 25.2 pg (27.0-33.0); Mean Corpuscular Volume 78.1 fL (80.0-98.0); Monocytes Percent Auto 6.5 % (2-11); Neutrophils Absolute Auto 11.4 x10*3/uL (2.0-8.3); Neutrophils Percent Auto 75.3 % (45-73); Platelet Count 290 X10*3/uL (160-400); Red Cell Distribution Width 17.5 % (11.0-16.0); White Blood Count 15.1 X10*3/uL (4.8-10.8)
[2024-10-11 10:55] LABS: Alanine Aminotransferase 20 U/L (0-40); Aspartate Amino Transferase 21 U/L (5-37); Cholesterol 141 mg/dL (<200); Glucose Fasting 133 mg/dL (60-99); HDL Cholesterol 40 mg/dL (>40); LDL Cholesterol Calculated 87 mg/dL (<100); Triglycerides 74 mg/dL (<150)
== END 2024-10-11 07:50 | disposition home or self-care (01) ==
LOC: HO.10HDL 07:49
PROVIDERS: Visit Provider Family Medicine
DX: E78.00 Pure hypercholesterolemia, unspecified (principal); I10 Essential (primary) hypertension; E11.9 Type 2 diabetes mellitus without complications; D50.9 Iron deficiency anemia, unspecified; K75.81 Nonalcoholic steatohepatitis (NASH)
CPT/HCPCS: 36415; 80061; 82550; 82947; 83036; 84450; 84460; 85025

== ENCOUNTER 2024-10-31 13:15 | Outpatient (AMB) | payer MEDICARE, SELFPAY ==
--- NOTE | 2024-10-31 13:29 | A.OFFPC_ITS ---
Vital Signs 10/31/24 13:34 Height 5 ft 9 in Weight 317 lb 6 oz BMI 46.9 BP 130/68 Blood Pressure Location Lt brachial Position Sitting Pulse 84 Pulse Source Pulse Oximeter Temp 97.3 F Temp Source Temporal Artery Scan Pulse Oximetry (%) 94 Oxygen Delivery Method Room Air Intake Visit Reasons: establish care Intake Note: Patient is a new patient here to establish care for COPD, PreDM, HTN, ALIN, ED, Back pain, Obesity, Emphysema. Transferring care from Dr Smith. Medical records have been requested and have not received. Client Services Account Manager Required: No Telephone Appointment Clerk: Not Required per policy Accompanied by: Self / Same As Patient Allergies No Known Allergies [No Known Allergies*] Allergy (Verified 10/31/24 13:51) Medication List - Last Reconciled 10/31/24 by Rafa Neal PA-C albuterol sulfate 90 mcg/actuation 2 puffs inhalation Q4-6H PRN 90 days apple cider vinegar 500 mg PO DAILY aspirin 81 mg PO DAILY atorvastatin 10 mg PO DAILY clotrimazole 10 mg mucous membrane TID PRN fish,bora,flax oils-om3,6,9no1 400-400-400 mg (Triple [place] 3-6-9) 1 cap PO DAILY auiphchhguq-nfpxwoqeh-wqxbwlrl 200-62.5-25 mcg (Trelegy Ellipta) 1 inh inhalation DAILY lisinopril 10 mg PO DAILY lysine 1,000 mg PO DAILY metformin ER 500 mg PO DAILY montelukast 10 mg PO DAILY multivitamin (Daily Multi-Vitamin tablet) 1 tab PO DAILY nystatin 500,000 units PO TID PRN sildenafil 100 mg PO DAILY PRN theophylline ER 300 mg PO Q12H Tobacco use date assessed: 10/31/24 Fall risk assessment: No Falls in past year Last assessed Fall Risk: 10/31/24 Dental Screening Dental Screen Date: 10/31/24 Did you have a dental visit in the last 12 months?: No Did you have a dental problem in the last 6 months where you did not have access to dental care?: No Was dental information given to patient?: No (Dentures) HPI establish care HPI Details Patient is a 64 year male here today for establish care visit. Previous PCP was Dr. Santana at a private practice. Patient has a past medical history significant for morbid obesity, tobacco dependency, COPD, hypertension, hyperlipidemia, aortic stenosis, obstructive sleep apnea. Obstructive sleep apnea: Patient followed by [place] [facility]. He does CPAP machine on a nightly basis with good effect. COPD: Has been a long-time smoker, has a emphysema.. Again followed by pulmonology. He continues on theophylline and maintenance inhaler with good effect on his breathing. Unfortunately continues to smoke cigarettes and has found it very difficult to stopped smoking. .. Impaired glucose metabolism: Patient continues on metformin daily. Most recent A1c acceptable at 6.0. He does try to reduce his carbohydrates in his diet. We did discuss perhaps trying a GLP 1 to help him with glycemic control, obstructive sleep apnea and weight reduction. [facility] Medical History (Updated 11/01/24 @ 07:42 by Rafa Neal PA-C) Submandibular lymphadenopathy Dyspnea on exertion Pulmonary nodule Tubular adenoma of colon Personal history of nicotine dependence Back pain ALIN (obstructive sleep apnea) Low serum testosterone HLD (hyperlipidemia) HTN (hypertension) Hypogonadism male Erectile disorder due to medical condition in male COPD (chronic obstructive pulmonary disease) Surgical History History of colonoscopy Social History Household Members: None Housing: Condominium Alcohol intake: current Alcohol intake frequency: holidays/special occasions only Patient Tobacco Use Status: Current everyday Tobacco user Tobacco use type: Cigarette Cigarette Packs Per Day: 1 Cigarettes Per Day: 20 Years Smoked: 45 e-Cigarette/Vaping Use: Never Used Second Hand Smoke Exposure: Yes service: No Current occupational 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 1. Little interest or pleasure in doing things: not at all 2. Feeling down, depressed, or hopeless: not at all 3. Trouble falling or staying asleep, or sleeping too much: not at all 4. Feeling tired or having little energy: not at all 5. Poor appetite or overeating: not at all 6. Feeling bad about yourself - or that you are a failure or have let yourself or your family down: not at all 7. Trouble concentrating on things, such as reading the newspaper or watching television: not at all 8. Moving or speaking so slowly that other people could have noticed. Or the opposite - being so fidgety or restless that you have been moving around a lot more than usual: not at all 9. Thoughts that you would be better off or of hurting yourself in some way: not at all Total score: 0 Depression Screening Interpretation: Negative Depression Screening Done: Yes 87897 - PHQ-9 Billing: Yes Source: Developed by Drs. Eh Sosa, Bruna Byers, Bryan Bell and colleagues, with an educational aruna from [employer]. Thrive Questionnaire Date Thrive assessed: 10/24/24 I am a: Patient What is your living situation today?: I have a steady place to live Within the past 12 months, did the food you bought not last and you didn't have the money to get more?: Never true Within the past 12 months, did you worry whether your food would run out before you got money to buy more?: Often true Do you have trouble paying for medicines?: No Do you have trouble getting transportation to medical appointments?: No Do you have trouble paying your heating and electricity bill?: No Do you have trouble taking care of your child, family member or friend?: I ch oose not to answer this question Do you have trouble with day-to-day activities such as bathing, preparing meals, shopping, managing finances, etc.?: No Are you currently unemployed and looking for a job?: No Are you interested in more education?: No Please select the resources that you would like help with: None Currently or been in a relationship where the following occur: No concerns reported THRIVE Score: 1 AUDIT C Alcohol Use Questionnaire (AUDIT-C) 1. How often do you have a drink containing alcohol?: Never Total Score: 0 MATEO-7 AMB Questionnaire MATEO-7 Feeling nervous, anxious, or on edge: 0 = Not at all Not being able to stop or control worryin = Not at all Worrying too much about different things: 0 = Not at all Trouble relaxin = Not at all Being so restless that it is hard to sit still: 0 = Not at all Becoming easily annoyed or irritable: 0 = Not at all Feeling afraid as if something awful might happen: 0 = Not at all Total MATEO-7 score (0-4 normal; 5-9 mild; 10-14 moderate; 15-21 severe): 0 Source: Developed by Drs. Eh Sosa, Bruna Byers, Bryan romero nd colleagues, with an educational aruna from [employer]. MATEO-7 Assessment Billing MATEO-7 Assessment Tool: MATEO-7 Assessment 76502 Review of Systems Const Denies headache(s) Eyes Denies loss of vision ENT Denies vertigo, Denies dizziness, Denies headache(s) and Denies sore throat Card Denies chest pain, Denies leg edema and Denies lightheadedness Resp Denies cough, Denies hemoptysis and Denies wheezing GI Denies abdominal pain, Denies melena, Denies constipation, Denies diarrhea and Denies vomiting Denies dysuria, Denies urinary frequency and Denies urinary urgency Musc Denies arthralgias, Denies joint swelling, Denies numbness and Denies tingling Neuro Denies Abnormal speech present, Denies behavioral changes, Denies vertigo, Denies dizziness, Denies headache(s), Denies loss of vision, Denies memory loss, Denies numbness and Denies tingling Psych Denies anxiety, Denies behavioral changes, Denies depression, Denies memory loss and Denies panic attacks Paulino/Lymph Denies easy bleeding and Denies easy bruising Aller/Immun Denies wheezing Physical exam (Primary Care) Vital Signs: Last Vital Signs Temp 97.3 F 10/31/24 13:34 Pulse 84 10/31/24 13:34 BP 130/68 10/31/24 13:34 Pulse Ox 94 10/31/24 13:34 Oxygen Delivery Method Room Air 10/31/24 13:34 BMI result Body Mass Index 46.9 BMI Assessment/Plan discussion: High BMI High, discussed plan: lifestyle, weight reduction, dietary and physical activity Tobacco/Smoking Status: Tobacco use Status Tobacco use date assessed 10/31/24 10/31/24 13:34 Patient Tobacco Use Status Current everyday Tobacco 10/31/24 13:47 Tobacco use type Cigarette 10/31/24 13:47 e-Cigarette/Vaping Use Never Used 10/31/24 13:47 Are you ready to quit: No Tobacco cessation counseling provided: Yes Items discussed: Nicotine replacement Relapse Prevention: discussed the importance of a supportive environment, discussed negative mood or depression after quitting, weight gain after smoking is common and discussed dietary, exercise and/or lifestyle changes Number of minutes spent counselin CPT code: 48797 - 4-10 Minutes PHQ-9: PHQ-9 Score PHQ-9: Total score 0 10/31/24 13:50 Depression Screening Interpretation: Negative Thrive Assessment: Date of Thrive Assessment Date Thrive assessed 10/24/24 10/31/24 13:31 Currently or been in a relationship where the following occur: No concerns reported Const General: healthy appearing, no acute distress, alert and awake Nutritional Appearance: well nourished Orientation/consciousness: oriented to person, oriented to place and oriented to time HENMT Ears: TM's normal bilaterally General nose exam: Normal nasal mucous membranes and turbinates present Eyes Conjunctivae: conjunctivae normal Sclerae: sclerae normal Pupils: Equal, round and reactive pupils present Neck Neck: Yes no lymphadenopathy and Yes no JVD Thyroid: Thyroid normal Carotids: no bruits Resp Effort & Inspection: normal respiratory effort and not tachypneic Auscultation: no crackles, no rales, no rhonchi and no wheezes Cardio Rate: regular rate Rhythm: regular rhythm Heart sounds: no murmurs and normal S1 and S2 GI Palpation (GI): Soft to palpation, nontender, no hepatomegaly and no splenomegaly Auscultation: normal bowel sounds Skin General skin exam: no rashes or lesions noted and dry skin Neuro General: oriented to person, oriented to place and oriented to time Cranial nerves: Yes Equal, round and reactive pupils present Speech: No Abnormal speech present Gait exam (Neuro): Normal gait present Motor exam (neuro): no tremor noted Extrem Right upper extremity: full ROM Left upper extremity: full ROM Right lower extremity: full ROM; no edema Left lower extremity: full ROM; no edema Psych Mental Status: mental status grossly normal Speech and movement: Normal speech and movement present Affect: normal affect Attitude: cooperative Thought process: Normal thought process present Coding Level of Care Code New Pt Level 4 (57458) Diagnoses Centrilobular emphysema J43.2 COPD type: emphysema Emphysema type: centrilobular ALIN (obstructive sleep apnea) G47.33 Personal history of nicotine dependence Z87.891 Primary hypertension I10 Hypertension type: primary hypertension Mixed hyperlipidemia E78.2 Hyperlipidemia type: mixed hyperlipidemia Class 3 obesity E66.813 Additional Codes PHQ-9 - 19778 - PHQ-9 Billing: Yes ([id number]) MATEO-7 Assessment Billing - MATEO-7 Assessment Tool: MATEO-7 Assessment 93851 ([id number]) Vital Signs *Quality* - CPT code: 43479 - 4-10 Minutes ([id number]) Assessment & Plan Assessment & Plan (1) COPD (chronic obstructive pulmonary disease): Comment: HE DOES HAVE SEVERE OBSTRUCTIVE PULMONARY DISEASE. COPD WAS IMPROVED AND REMAINED STABLE BUT NOW THAT HE STILL SMOKES 15 CIGARETTES A DAY HE IS GETTING MORE CONGESTED. HE he is using albuterol only about 3 to 4 times a day. Code(s): J44.9 - Chronic obstructive pulmonary disease, unspecified Category: Medical Qualifiers: COPD type: emphysema Emphysema type: centrilobular Qualified Code(s): J43.2 - Centrilobular emphysema Plan: Continue Trelegy Ellipta 1 inhalation daily. Ventolin HFA 2 puffs Q 4-6 hours p.r.n.. Theophylline ER 300 mg b.i.d.. (2) ALIN (obstructive sleep apnea): Comment: DIAGNOSED ON 10/10/10 WITH SEVERE ALIN, RDI 72.6 TREATED VERY WELL WITH THE USE OF CPAP . HE IS VERY COMPLIANT IN USING THE CPAP, AND DEFINITELY BENEFITING FROM ITS USE. COMPLIANCE IS EXCELLENT. Code(s): G47.33 - Obstructive sleep apnea (adult) (pediatric) Category: Medical Plan: Commended for good compliance and advised to keep on using the CPAP every night regularly. (3) Personal history of nicotine dependence: Comment: (Current smoker -onset 15 - 4-1ppd x 42yrs, 35pyh), still smoking about 15 cigarettes a day, which is actually increased from before. Code(s): Z87.891 - Personal history of nicotine dependence Category: Medical Plan: Talked to him about smoking once again. Stressed that he needs to quit smoking or at least cut down the number of cigarettes He finds it hard to cut down the number of cigarettes but he promises that he will do his best. (4) HTN (hypertension): Code(s): I10 - Essential (primary) hypertension Category: Medical Qualifiers: Hypertension type: primary hypertension Qualified Code(s): I10 - Essential (primary) hypertension Plan: Patient's blood pressure acceptable today in office. Will continue current dose of lisinopril with goal blood pressure to be below 140/90 (5) HLD (hyperlipidemia): Code(s): E78.5 - Hyperlipidemia, unspecified Category: Medical Qualifiers: Hyperlipidemia type: mixed hyperlipidemia Qualified Code(s): E78.2 - Mixed hyperlipidemia Plan: Patient's most recent lipid panel showing excellent control of his total cholesterol and LDL. He continues on atorvastatin 40 mg with good effect. Goal LDL is to remain below 100 (6) Class 3 obesity: Code(s): E66.813 - Obesity, class 3 Category: Medical Plan: Patient does understand his BMI is over 40 and will work trying to be more physically active and adapting to better eating habits to reduce his weight. Again we did discuss GLP 1 to help him with weight reduction and his obstructive sleep apnea. He is considering this at this time. Orders: Orders Lipid Panel 10/31/24 E78.5 - Hyperlipidemia, unspecified Complete Blood Count no Diff 10/31/24 I10 - Essential (primary) hypertension Microalbumin, Random (w Creat) 10/31/24 I10 - Essential (primary) hypertension Comprehensive [place]. Panel Fast 10/31/24 I10 - Essential (primary) hypertension Prostate Specific Antigen Scr 10/31/24 E29.1 - Testicular hypofunction, Z12.5 - Encounter for screening for malignant neoplasm of prostate Patient Instructions: Goal: A1c to remain below 7.0, LDL to be below 100 blood pressure to remain below 140/90. QUIT SMOKING. Barriers: Adherence to physical activity and healthy eating habits
[2024-10-31 13:34] VITALS: BP 130/68; PULSE 84; TEMP 36.3; O2SAT 94; BMI 46.9
== END 2024-10-31 14:15 | disposition home or self-care (01) ==
LOC: HO.HMCH 13:16
PROVIDERS: PCP Physician Assistant; Visit Provider Physician Assistant
DX: J43.2 Centrilobular emphysema (principal); G47.33 Obstructive sleep apnea (adult) (pediatric); Z87.891 Personal history of nicotine dependence; I10 Essential (primary) hypertension; E78.2 Mixed hyperlipidemia; E66.813 Obesity, class 3

== ENCOUNTER → 2024-10-31 13:15 | Outpatient (BNVA) | payer MEDICARE, SELFPAY | PROVIDERS: PCP Physician Assistant; Visit Provider Physician Assistant | DX: I10 Essential (primary) hypertension (principal); G47.33 Obstructive sleep apnea (adult) (pediatric); N52.9 Male erectile dysfunction, unspecified; M54.59 Other low back pain; E66.813 Obesity, class 3; I35.0 Nonrheumatic aortic (valve) stenosis; J43.2 Centrilobular emphysema; F17.210 Nicotine dependence, cigarettes, uncomplicated; E78.2 Mixed hyperlipidemia; E29.1 Testicular hypofunction; Z68.42 Body mass index [BMI] 45.0-49.9, adult; Z99.89 Dependence on other enabling machines and devices | CPT/HCPCS: 96127; 99202 ==

== ENCOUNTER 2024-11-03 09:10 | Outpatient (REF) | payer MEDICARE, SELFPAY ==
--- NOTE | ~2024-11-03 | XR_ITS ---
CLINICAL HISTORY: J43.2 - Centrilobular emphysema 2 view chest x-ray Comparison: None Findings: The lungs are clear. Hyperinflation of the lungs. Pleural thickening or small pleural effusion. Heart size is normal. No acute fracture. IMPRESSION: No consolidation. This document has been electronically signed by: Kathleen Muller MD on 11/03/2024 15:38:33
== END 2024-11-03 09:11 | disposition home or self-care (01) ==
LOC: HO.XRAY 09:10
PROVIDERS: PCP Physician Assistant; Visit Provider Internal Medicine
DX: J40 Bronchitis, not specified as acute or chronic (principal); J43.2 Centrilobular emphysema; G47.33 Obstructive sleep apnea (adult) (pediatric); Z87.891 Personal history of nicotine dependence; J02.9 Acute pharyngitis, unspecified
CPT/HCPCS: 71046; 99212

== ENCOUNTER 2024-11-03 09:10 | Outpatient (AMB) | payer MEDICARE, SELFPAY ==
[2024-11-03 09:21] VITALS: BP 140/68; PULSE 84; O2SAT 94; BMI 47.2
--- NOTE | 2024-11-03 09:21 | MHC.OFFVIS ---
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 Required: No Allergies No Known Allergies [No Known Allergies*] Allergy (Verified 11/03/24 09:48) Medication List - Last Reconciled 11/03/24 by Hazel Peters MD albuterol sulfate 90 mcg/actuation 2 puffs inhalation Q4-6H PRN 90 days apple cider vinegar 500 mg PO DAILY aspirin 81 mg PO DAILY atorvastatin 10 mg PO DAILY clotrimazole 10 mg mucous membrane TID PRN fish,bora,flax oils-om3,6,9no1 400-400-400 mg (Triple [place] 3-6-9) 1 cap PO DAILY niewryatfzd-oaxrqtpae-pksktwie 200-62.5-25 mcg (Trelegy Ellipta) 1 inh inhalation DAILY lisinopril 10 mg PO DAILY lysine 1,000 mg PO DAILY metformin ER 500 mg PO DAILY montelukast 10 mg PO DAILY multivitamin (Daily Multi-Vitamin tablet) 1 tab PO DAILY nystatin 500,000 units PO TID PRN sildenafil 100 mg PO DAILY PRN theophylline ER 300 mg PO Q12H Do you need a note to return to daycare/school/sports/work: No HPI HPI thrush: Details: 64 years old gentleman with morbid obesity obstructive sleep apnea, continued smoking, chronic obstructive pulmonary disease, Comes in today with 1 weeks history of soreness in the throat especially on the left side and also with enlarged left submandibular gland. He has previous history of oral thrush. He has slight increase in his shortness of breath. Denies any fever or chills . Still smoking about 15 cigarettes a day. Breathing is same as usual. He does use his CPAP at night religiously. [facility] Medical History Bronchitis Acute pharyngitis Submandibular lymphadenopathy Dyspnea on exertion Pulmonary nodule Tubular adenoma of colon Personal history of nicotine dependence Back pain ALIN (obstructive sleep apnea) Low serum testosterone HLD (hyperlipidemia) HTN (hypertension) Hypogonadism male Erectile disorder due to medical condition in male COPD (chronic obstructive pulmonary disease) Surgical History History of colonoscopy Social History Household Members: None Housing: Condominium Alcohol intake: current Alcohol intake frequency: holidays/special occasions only Patient Tobacco Use Status: Current everyday Tobacco user Tobacco use type: Cigarette Cigarette Packs Per Day: 1 Cigarettes Per Day: 20 Years Smoked: 45 e-Cigarette/Vaping Use: Never Used Second Hand Smoke Exposure: Yes service: No Current occupational 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 (Cane) Hearing needs: No Vision needs: Yes (Reading glasses) Review of Systems Const All systems reviewed & are unremarkable except as noted in HPI and below Eyes Reports no additional complaints ENT Reports nasal congestion (Mild) Card Denies chest pain, Denies irregular heart rhythm, Reports leg edema (Only mild, to words the afternoon) and Reports dyspnea on exertion (Mild to moderate) Resp Reports as per HPI and Reports dyspnea on exertion (Mild to moderate) GI Reports no additional complaints Reports no additional complaints Musc Reports back pain and Reports arthralgias Skin/Breast Reports system reviewed and no additional complaints, except as documented Neuro Reports no additional complaints Psych Reports no additional complaints Physical Exam Vital Signs: Last Vital Signs Pulse 84 11/03/24 09:21 BP 140/68 H 11/03/24 09:21 Pulse Ox 94 11/03/24 09:21 Oxygen Delivery Method Room Air 11/03/24 09:21 BMI result Body Mass Index 47.2 Const General: comfortable, no acute distress, alert and awake Orientation/consciousness: patient oriented x3 HEENT Other: He is grossly overweight with a round face Head: Yes normal to inspection General nose exam: No nasal polyps present and No nasal discharge present Face and sinus: Yes sinuses nontender Mouth: oropharynx normal (No white spots but erythema lt . side of pharynx .) Throat: No posterior oropharynx normal (Very narrow and crowded, Mallampati class 4) Eyes General: appearance normal, both eyes and all related structures Neck Neck: Yes normal visual inspection, No no lymphadenopathy (Enlarged Left submandibular gland.), Yes trachea midline, Yes no JVD and Yes other (Extremely obese) Thyroid: Thyroid normal Chest Chest palpation & inspection: normal inspection of the chest, normal palpation of entire chest wall and no tenderness Resp Other: Percussion note is barely perceptible. Breath sounds are distant especially over the basilar areas. No wheezes or crepitations are heard today. Cardio Palpation: PMI not normal (Not palpable) Rate: regular rate Rhythm: regular rhythm Heart sounds: no gallops and no murmurs GI Palpation (GI): Soft to palpation, nontender, No hepatosplenomegaly present, no masses and Other GI palpation findings present (Grossly obese and protuberant) Auscultation: normal bowel sounds Back/Spine/Pelvis Thoracic/Lumbar Spine: thoracic and lumbar spine normal to inspection and thoraco-lumbar ROM limited Skin General skin exam: no rashes or lesions noted Neuro General: patient oriented x3 and no focal motor deficits Cranial nerves: Yes CN's II-XII intact bilaterally Extrem General: Yes normal to inspection, No no joint enlargement (Knees are enlarged and somewhat tender), Yes no clubbing, cyanosis or edema and Yes no calf tenderness Psych Appearance: grossly normal and well kempt Speech and movement: Normal speech and movement present Assessment & Plan Assessment & Plan (1) COPD (chronic obstructive pulmonary disease): Comment: HE DOES HAVE SEVERE OBSTRUCTIVE PULMONARY DISEASE. COPD WAS IMPROVED AND REMAINED STABLE BUT NOW THAT HE STILL SMOKES 15 CIGARETTES A DAY HE IS GETTING MORE CONGESTED. He does have inspiratory wheezes over the left chest. May have super added acute bronchitis. Code(s): J44.9 - Chronic obstructive pulmonary disease, unspecified Category: Medical Qualifiers: COPD type: emphysema Emphysema type: centrilobular Qualified Code(s): J43.2 - Centrilobular emphysema Plan: Chest x-ray is ordered. He is due for his annual lung scan in the fall (2) ALIN (obstructive sleep apnea): Comment: DIAGNOSED ON 10/10/10 WITH SEVERE ALIN, RDI 72.6 TREATED VERY WELL WITH THE USE OF CPAP . HE IS VERY COMPLIANT IN USING THE CPAP, AND DEFINITELY BENEFITING FROM ITS USE. COMPLIANCE IS EXCELLENT. Code(s): G47.33 - Obstructive sleep apnea (adult) (pediatric) Category: Medical Plan: Continue using CPAP regularly (3) Personal history of nicotine dependence: Comment: (Current smoker -onset 15 - 3/4-1ppd x 42yrs, 35pyh), still smoking about 15 cigarettes a day, which is actually increased from before. Code(s): Z87.891 - Personal history of nicotine dependence Category: Medical Plan: I explained to him that it is very risky for his health to continue smoking. Some of the irritation in his throat is secondary to continued smoking He is going to try his best to cut down the number of cigarettes (4) Acute pharyngitis: Comment: He does have erythema of the pharyngeal wall on the left side. No exudates noted. Still there is a possibility that he may have low-grade thrush, Acute bacterial pharyngitis can not be ruled. Will treat him with a course of nystatin swishes. Code(s): J02.9 - Acute pharyngitis, unspecified Category: Medical Plan: See under bronchitis (5) Bronchitis: Comment: He does have inspiratory wheezes and rattling sounds, suggestive of acute bronchitis. Code(s): J40 - Bronchitis, not specified as acute or chronic Category: Medical Plan: Chest x-ray Treat empirically with Z-Hemal. Orders: Orders XR chest 2V Today J40 - Bronchitis, not specified as acute or chronic, J43.2 - Centrilobular emphysema Medications: New nystatin swish and swallow 5 mL PO TID 10 days 150 mL 1RF azithromycin For 250 mg dose pack: take 500 mg today (day 1), then 250 mg for 4 days (days 2-5) PO 6 tabs 0RF Coding Level of Care Code Est Pt Level 3 (05551) Diagnoses Centrilobular emphysema J43.2 COPD type: emphysema Emphysema type: centrilobular ALIN (obstructive sleep apnea) G47.33 Personal history of nicotine dependence Z87.891 Acute pharyngitis J02.9 Bronchitis J40
--- OUTSIDE RECORDS SUMMARY | 2024-11-03 09:53 | XMS_ITS | Patient Health Record ---
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 Role Phone Luis STEELE, David Primary Care Provider UnavailEh Wu Unavailable [phone] Allergies No Known Allergies Reason For Referral No Information Medications Medication SIG (Take, Route, Frequency, Duration) Notes Start Date End Date Status CoQ-10 Active Aspirin Adult Low Dose 81 MG 1 tablet Orally Once a day for 30 day(s) Active Turmeric Active Apple Cider Vinegar 500 MG as directed Orally Active [place] 3-6-9 Complex - as directed Orally Active [...] Problem Status W/U Status Risk Notes Problem 928387337 Encounter for screening for malignant neoplasm of colon (Z12.11) Active confirmed Problem 341697490 History of adenomatous polyp of colon (Z86.010) Active confirmed Problem Screening for malignant neoplasm of rectum (196630880) Encounter for screening for malignant neoplasm of rectum (Z12.12) Active confirmed Problem 90893366 Preprocedural examination (Z01.818) Active confirmed Problem 554591090 Fatty liver (K76.0) Active confirmed Problem 41538396 Liver fibrosis (K74.0) Active confirmed Problem 04013636 Liver fibrosis (K74.00) Active confirmed Plan Of Treatment Pending Test Test Name Order Date LIVER PROFILE 07/15/2018 CBC w DIFF 07/15/2018 PROTHROMBIN TIME (PT, INR) 07/15/2018 ALPHA-FETOPROTEIN,TUMOR MARKER 9 Future Test Test Name Order Date COLONOSCOPY 08/28/2015 Insurance Providers Payer Name Payer Address Payer Phone Subscriber Number Group Number Insured Name Patient Relationship to Insured Coverage Start Date Coverage End Date [facility] [address] [place], [place] [id number] [phone] [id number] JINA RACHAEL Self - patient is the insured Medical (General) History Medical History History ICD Code Hypertension Denies [place],DM,CVA,renal disease COPD Sleep apnea-uses a CPAP mask [...]
== END 2024-11-03 16:49 | disposition home or self-care (01) ==
LOC: HO.HPS 09:11
PROVIDERS: PCP Physician Assistant; Visit Provider Internal Medicine
DX: J43.2 Centrilobular emphysema (principal); G47.33 Obstructive sleep apnea (adult) (pediatric); Z87.891 Personal history of nicotine dependence; J02.9 Acute pharyngitis, unspecified; J40 Bronchitis, not specified as acute or chronic
CPT/HCPCS: 99213

== ENCOUNTER → 2024-11-03 10:00 | Outpatient (BNV) | payer MEDICARE, SELFPAY | PROVIDERS: PCP Physician Assistant; Visit Provider Nuclear Medicine | DX: J43.2 Centrilobular emphysema (principal) | CPT/HCPCS: 71046 ==

== ENCOUNTER 2024-12-27 10:54 | Outpatient (AMB) | payer MEDICARE, SELFPAY ==
--- NOTE | 2024-12-27 11:00 | A.OFFVIS_ITS ---
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: No Allergies No Known Allergies (No Known Allergies*) Allergy (Verified 12/27/24 11:27) Medication List - Last Reconciled 12/27/24 by Hazel Peters MD albuterol sulfate 90 mcg/actuation (Ventolin HFA) 2 puffs inhalation Q6H PRN apple cider vinegar 500 mg PO DAILY aspirin 81 mg PO DAILY atorvastatin 10 mg PO DAILY clotrimazole 10 mg mucous membrane TID PRN fish,bora,flax oils-om3,6,9no1 400-400-400 mg ([place]ple [place] 3-6-9) 1 cap PO DAILY gqlespmvrez-kxqflfnfy-cbkthkip 200-62.5-25 mcg (Trelegy Ellipta) 1 inh inhalation DAILY lisinopril 10 mg PO DAILY lysine 1,000 mg PO DAILY metformin ER 500 mg PO DAILY montelukast 10 mg PO DAILY multivitamin (Daily Multi-Vitamin tablet) 1 tab PO DAILY nystatin 5 mL PO TID PRN sildenafil 100 mg PO DAILY PRN theophylline ER 300 mg PO Q12H Do you need a note to return to daycare/school/sports/work: No HPI HPI Obstructive sleep apnea: Details: Tushar was treated for acute pharyngitis/bronchitis, with a course of azithromycin , and nystatin swishes. He got much better after completing the course of antibiotic. Has been back to his baseline. Uses his CPAP up to 7 hours every night and sleeps good, I would love my CPAP Cigarettes down to 10 a day, trying to cut down but has strong urge to smoke. Breathing has been good . Walks around with his cane. Weight is unchanged Overall he is in good spirits and feeling better. [facility] Medical History Bronchitis Acute pharyngitis Submandibular lymphadenopathy Dyspnea on exertion Pulmonary nodule Tubular adenoma of colon Personal history of nicotine dependence Back pain ALIN (obstructive sleep apnea) Low serum testosterone HLD (hyperlipidemia) HTN (hypertension) Hypogonadism male Erectile disorder due to medical condition in male COPD (chronic obstructive pulmonary disease) Surgical History History of colonoscopy Social History Household Members: None Housing: Condominium Alcohol intake: current Alcohol intake frequency: holidays/special occasions only Patient Tobacco Use Status: Current everyday Tobacco user Tobacco use type: Cigarette Cigarette Packs Per Day: 1 Cigarettes Per Day: 10 Years Smoked: 45 e-Cigarette/Vaping Use: Never Used Second Hand Smoke Exposure: Yes service: No Current occupational 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 (Cane) Hearing needs: No Vision needs: Yes (Reading glasses) Review of Systems Const All systems reviewed & are unremarkable except as noted in HPI and below Eyes Reports no additional complaints ENT Reports nasal congestion (Mild) Card Denies chest pain, Denies irregular heart rhythm, Reports leg edema (Only mild, to words the afternoon) and Reports dyspnea on exertion (Mild to moderate) Resp Reports as per HPI and Reports dyspnea on exertion (Mild to moderate) GI Reports no additional complaints Reports no additional complaints Musc Reports back pain and Reports arthralgias Skin/Breast Reports system reviewed and no additional complaints, except as documented Neuro Reports no additional complaints Psych Reports no additional complaints Physical Exam Vital Signs: Last Vital Signs Pulse 82 12/27/24 11:04 BP 122/72 12/27/24 11:04 Pulse Ox 94 12/27/24 11:04 Oxygen Delivery Method Room Air 12/27/24 11:04 BMI result Body Mass Index 46.9 Const General: comfortable, no acute distress, alert and awake Orientation/consciousness: patient oriented x3 HEENT Other: He is grossly overweight with a round face Head: Yes normal to inspection General nose exam: No nasal polyps present and No nasal discharge present Face and sinus: Yes sinuses nontender Mouth: oropharynx normal (No white spots but erythema lt . side of pharynx .) Throat: No posterior oropharynx normal (Very narrow and crowded, Mallampati class 4) Eyes General: appearance normal, both eyes and all related structures Neck Neck: Yes normal visual inspection, Yes no lymphadenopathy (Left submandibular gland back to normal size), Yes trachea midline, Yes no JVD and Yes other (Extremely obese) Thyroid: Thyroid normal Chest Chest palpation & inspection: normal inspection of the chest, normal palpation of entire chest wall and no tenderness Resp Other: Percussion note is barely perceptible. Breath sounds are distant especially over the basilar areas. No wheezes or crepitations are heard today. Cardio Palpation: PMI not normal (Not palpable) Rate: regular rate Rhythm: regular rhythm Heart sounds: no gallops and no murmurs GI Palpation (GI): Soft to palpation, nontender, No hepatosplenomegaly present, no masses and Other GI palpation findings present (Grossly obese and protuberant) Auscultation: normal bowel sounds Back/Spine/Pelvis Thoracic/Lumbar Spine: thoracic and lumbar spine normal to inspection and thoraco-lumbar ROM limited Skin General skin exam: no rashes or lesions noted Neuro General: patient oriented x3 and no focal motor deficits Cranial nerves: Yes CN's II-XII intact bilaterally Extrem General: Yes normal to inspection, No no joint enlargement (Knees are enlarged and somewhat tender), Yes no clubbing, cyanosis or edema and Yes no calf tenderness Psych Appearance: grossly normal and well kempt Speech and movement: Normal speech and movement present Results Reviewed Results Reviewed: Chest Xray 11/04/24 Un-remarkable Assessment & Plan Assessment & Plan (1) COPD (chronic obstructive pulmonary disease): Comment: HE DOES HAVE SEVERE OBSTRUCTIVE PULMONARY DISEASE. COPD WAS IMPROVED AND NOW AT BASELINE . Code(s): J44.9 - Chronic obstructive pulmonary disease, unspecified Category: Medical Qualifiers: COPD type: emphysema Emphysema type: centrilobular Qualified Code(s): J43.2 - Centrilobular emphysema Plan: CONTINUE THE PRESENT REGIMEN : THEOPHYLLINE ER 300 MG Q.12 HOURS TRELEGY ELLIPTA 1 INHALATION DAILY VENTOLIN 2 PUFFS Q 6 HOURS P.R.N. ( USE WITH AEROCHAMBER ) MONTELUKAST 10 MG DAILY (2) Personal history of nicotine dependence: Comment: (Current smoker -onset 08/02-1ppd x 42yrs, 35pyh), still smoking . Today he tells me that he has cut down to 10 cigarettes a day and is trying to cut it more. Code(s): Z87.891 - Personal history of nicotine dependence Category: Medical Plan: Had a good talk again and recommended that he needs to quit completely . (3) Pulmonary nodule: Comment: HE IS BEING FOLLOWED IN ANNUAL LUNG SCREENING PROGRAM LAST LOW-DOSE CT SCAN IN SHOWED A STABLE 6 MM NODULE IN LEFT UPPER LOBE. ALSO HAS A SMALL NODULE IN THE RIGHT UPPER LOBE. HAD RECENT CT SCAN, IN 04/24, WHICH DID NOT SHOW ANY NEW CHANGE. Code(s): R91.1 - Solitary pulmonary nodule Category: Medical Plan: Continue routine yearly LDCT . (4) Bronchitis: Comment: Acute bronchitis for which he was seen last time has resolved Code(s): J40 - Bronchitis, not specified as acute or chronic Category: Medical Plan: Continue present medical regimen (5) ALIN (obstructive sleep apnea): Comment: DIAGNOSED ON 10/10/10 WITH SEVERE ALIN, RDI 72.6 TREATED VERY WELL WITH THE USE OF CPAP . HE IS VERY COMPLIANT IN USING THE CPAP, AND DEFINITELY BENEFITING FROM ITS USE. COMPLIANCE IS EXCELLENT. Code(s): G47.33 - Obstructive sleep apnea (adult) (pediatric) Category: Medical Plan: Commended for good compliance and advised to continue using regularly Medications: Changed From nystatin swish and swallow 5 mL PO TID 10 days 150 mL 1RF To nystatin swish and swallow 5 mL PO TID PRN Coding Level of Care Code Est Pt Level 4 (71041) Diagnoses Centrilobular emphysema J43.2 COPD type: emphysema Emphysema type: centrilobular Personal history of nicotine dependence Z87.891 Pulmonary nodule R91.1 Bronchitis J40 ALIN (obstructive sleep apnea) G47.33
[2024-12-27 11:04] VITALS: BP 122/72; PULSE 82; O2SAT 94; BMI 46.9
--- OUTSIDE RECORDS SUMMARY | 2024-12-27 12:08 | XMS_ITS | Patient Health Record ---
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 Role Phone Luis (RETIRED) David STEELE Primary Care Provider Unavailable Eh Parra Unavailable [phone] Allergies No Known Allergies Reason For Referral No Information Medications Medication SIG (Take, Route, Frequency, Duration) Notes Start Date End Date Status CoQ-10 Active Aspirin Adult Low Dose 81 MG 1 tablet Orally Once a day for 30 day(s) Active Turmeric Active Apple Cider Vinegar 500 MG as directed Orally Active [place] 3-6-9 Complex - as directed Orally Active [...] Problem Status W/U Status Risk Notes Problem 344701798 Encounter for screening for malignant neoplasm of colon (Z12.11) Active confirmed Problem 377963689 History of adenomatous polyp of colon (Z86.010) Active confirmed Problem Screening for malignant neoplasm of rectum (646171720) Encounter for screening for malignant neoplasm of rectum (Z12.12) Active confirmed Problem 75881352 Preprocedural examination (Z01.818) Active confirmed Problem 555352094 Fatty liver (K76.0) Active confirmed Problem 21921851 Liver fibrosis (K74.0) Active confirmed Problem 43403848 Liver fibrosis (K74.00) Active confirmed Plan Of Treatment Pending Test Test Name Order Date LIVER PROFILE 07/15/2018 CBC w DIFF 07/15/2018 PROTHROMBIN TIME (PT, INR) 07/15/2018 ALPHA-FETOPROTEIN,TUMOR MARKER 9 Future Test Test Name Order Date COLONOSCOPY 08/28/2015 Insurance Providers Payer Name Payer Address Payer Phone Subscriber Number Group Number Insured Name Patient Relationship to Insured Coverage Start Date Coverage End Date [facility] [address] [place], [place] [id number] [phone] [id number] RACHAEL MURO Self - patient is the insured Medical (General) History Medical History History ICD Code Hypertension Denies [place],DM,CVA,renal disease COPD Sleep apnea-uses a CPAP mask [...]
--- OUTSIDE RECORDS SUMMARY | 2024-12-27 12:08 | XMS_ITS ---
Author Name [facility] Organization Unknown Care Team Organization Name Specialty Phone Email Start Date End [facility] 04/15/2024 09/19/2024
== END 2024-12-27 11:28 | disposition home or self-care (01) ==
LOC: HO.HPS 10:55
PROVIDERS: PCP Physician Assistant; Visit Provider Internal Medicine
DX: J43.2 Centrilobular emphysema (principal); Z87.891 Personal history of nicotine dependence; R91.1 Solitary pulmonary nodule; J40 Bronchitis, not specified as acute or chronic; G47.33 Obstructive sleep apnea (adult) (pediatric)
CPT/HCPCS: 99214

== ENCOUNTER → 2024-12-27 10:54 | Outpatient (BNVA) | payer MEDICARE, SELFPAY | PROVIDERS: PCP Physician Assistant; Visit Provider Internal Medicine | DX: G47.33 Obstructive sleep apnea (adult) (pediatric) (principal); J43.2 Centrilobular emphysema; Z87.891 Personal history of nicotine dependence; R91.1 Solitary pulmonary nodule; J40 Bronchitis, not specified as acute or chronic; Z99.89 Dependence on other enabling machines and devices | CPT/HCPCS: 99212 ==

== ENCOUNTER 2025-02-07 07:36 | Outpatient (REF) | payer MEDICARE, SELFPAY ==
--- OUTSIDE RECORDS SUMMARY | 2025-02-07 07:40 | XMS_ITS | Patient Health Record ---
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 Role Phone Luis (RETIRED) David STEELE Primary Care Provider Unavailable Eh Parra Unavailable [phone] Allergies No Known Allergies Reason For Referral No Information Medications Medication SIG (Take, Route, Frequency, Duration) Notes Start Date End Date Status CoQ-10 Active Aspirin Adult Low Dose 81 MG 1 tablet Orally Once a day for 30 day(s) Active Turmeric Active Apple Cider Vinegar 500 MG as directed Orally Active [place] 3-6-9 Complex - as directed Orally Active [...] Problem Status W/U Status Risk Notes Problem 607131907 Encounter for screening for malignant neoplasm of colon (Z12.11) Active confirmed Problem 171465371 History of adenomatous polyp of colon (Z86.010) Active confirmed Problem Screening for malignant neoplasm of rectum (951907256) Encounter for screening for malignant neoplasm of rectum (Z12.12) Active confirmed Problem 89330848 Preprocedural examination (Z01.818) Active confirmed Problem 781119104 Fatty liver (K76.0) Active confirmed Problem 79073571 Liver fibrosis (K74.0) Active confirmed Problem 95339036 Liver fibrosis (K74.00) Active confirmed Plan Of Treatment Pending Test Test Name Order Date LIVER PROFILE 07/15/2018 CBC w DIFF 07/15/2018 PROTHROMBIN TIME (PT, INR) 07/15/2018 ALPHA-FETOPROTEIN,TUMOR MARKER 9 Future Test Test Name Order Date COLONOSCOPY 08/28/2015 Insurance Providers Payer Name Payer Address Payer Phone Subscriber Number Group Number Insured Name Patient Relationship to Insured Coverage Start Date Coverage End Date [facility] [address] [place], [place] [id number] RACHAEL MURO Self - patient is the insured Medical (General) History Medical History History ICD Code Hypertension Denies [place],DM,CVA,renal disease COPD Sleep apnea-uses a CPAP mask [...]
[2025-02-07 10:00] LABS: Hematocrit 45.3 % (42.0-52.0); Hemoglobin 13.8 g/dl (14.0-18.0); Mean Corpuscular HGB Conc 30.5 g/dl (31.0-36.0); Mean Corpuscular Hemoglobin 24.4 pg (27.0-33.0); Mean Corpuscular Volume 80.0 fL (80.0-98.0); NRBC Abs Auto 0.000 X10*3/uL (0.0-0.012); NRBC Pct Auto 0.0 /100WBC (0.0-0.2); Platelet Count 280 X10*3/uL (160-400); Red Blood Count 5.66 X10*6/uL (4.60-5.80); White Blood Count 13.4 X10*3/uL (4.8-10.8)
[2025-02-07 10:16] LABS: Alanine Aminotransferase 23 U/L (0-40); Albumin Level 4.4 g/dL (3.5-5.0); Alkaline Phosphatase 102 U/L (39-117); Anion Gap 12 (12-20); Aspartate Amino Transferase 23 U/L (5-37); Blood Urea Nitrogen 16 mg/dL (9-16); Calcium 9.3 mg/dL (8.4-10.2); Carbon Dioxide 30 mmol/L (22-29); Chloride 103 mmol/L (96-108); Cholesterol 131 mg/dL (<200); Estimated Glomerular Filt Rate > 60; HDL Cholesterol 40 mg/dL (>40); Potassium 4.5 mmol/L (3.3-5.1); Sodium 140 mmol/L (135-145); Total Protein 7.4 g/dL (6.5-8.0); Triglycerides 62 mg/dL (<150)
[2025-02-07 10:57] LABS: Microalbum/Creatinine Ratio Ur 568.8 ug/mg cr (<30)
== END 2025-02-07 07:37 | disposition home or self-care (01) ==
LOC: HO.10HDL 07:36
PROVIDERS: Visit Provider Physician Assistant
DX: Z12.5 Encounter for screening for malignant neoplasm of prostate (principal); I10 Essential (primary) hypertension; E78.5 Hyperlipidemia, unspecified
CPT/HCPCS: 36415; 80053; 80061; 82043; 82570; 84153; 85027

== ENCOUNTER 2025-03-02 10:47 | Outpatient (AMB) | payer MEDICARE, SELFPAY ==
--- NOTE | 2025-03-02 10:50 | A.OFFPC_ITS ---
Vital Signs 03/02/25 10:52 Height 5 ft 9 in Weight 317 lb 8 oz BMI 46.9 BP 126/74 Blood Pressure Location Lt brachial Position Sitting Pulse 79 Pulse Source Pulse Oximeter Temp 97.3 F Temp Source Temporal Artery Scan Pulse Oximetry (%) 93 Oxygen Delivery Method Room Air Intake Visit Reasons: f/u HTN/ COPD Intake Note: Patient is here to follow up on HTN, COPD. Packing Inspector Required: No Director Of Finance: Not Required per policy Accompanied by: Self / Same As Patient Allergies No Known Allergies (No Known Allergies*) Allergy (Verified 03/02/25 11:10) Medication List - Last Reconciled 03/02/25 by Rafa Neal PA-C albuterol sulfate 90 mcg/actuation (Ventolin HFA) 2 puffs inhalation Q6H PRN apple cider vinegar 500 mg PO DAILY aspirin 81 mg PO DAILY atorvastatin 10 mg PO DAILY clotrimazole 10 mg mucous membrane TID PRN fish,bora,flax oils-om3,6,9no1 400-400-400 mg (Triple [place] 3-6-9) 1 cap PO DAILY jpwynskoujj-jjjxlciey-vsteingy 200-62.5-25 mcg (Trelegy Ellipta) 1 inh inhalation DAILY lisinopril 10 mg PO DAILY lysine 1,000 mg PO DAILY metformin ER 500 mg PO DAILY montelukast 10 mg PO DAILY multivitamin (Daily Multi-Vitamin tablet) 1 tab PO DAILY nystatin 5 mL PO TID PRN sildenafil 100 mg PO DAILY PRN theophylline ER 300 mg PO Q12H Tobacco use date assessed: 03/02/25 Fall risk assessment: No Falls in past year Last assessed Fall Risk: 03/02/25 Dental Screening Dental Screen Date: 10/31/24 HPI f/u HTN/ COPD HPI Details Patient is a 64 year male here today for follow-up visit. Patient has a past medical history significant for morbid obesity, impaired glucose metabolism, tobacco dependency, COPD, hypertension, hyperlipidemia, aortic stenosis, obstructive sleep apnea. Obstructive sleep apnea: Patient followed by [place] pulmonology. He does CPAP machine on a nightly basis with good effect. COPD: Has been a long-time smoker, has a emphysema.. Again followed by pulmonology. He continues on theophylline and maintenance inhaler with good effect on his breathing. Unfortunately continues to smoke cigarettes and has found it very difficult to stopped smoking. He reports he has coming up with a plan to stopped smoking. Does note to have a productive cough of late thus will supply patient with the azithromycin to reduce recurrence of pneumonia .. Leukocytosis: Likely related to his continued smoking and use of his maintenance inhaler that includes steroid. .. Hyperlipidemia: Most recent lipid panel showing excellent control of his total cholesterol and LDL. He continues on statin therapy without noted side effects. .. Impaired glucose metabolism: Patient continues on metformin daily. Most recent A1c acceptable at 6.0. He does try to reduce his carbohydrates in his diet. We did discuss perhaps trying a GLP 1 to help him with glycemic control, obstructive sleep apnea and weight reduction. Laboratory Tests 03/08/24 09/06/24 10/11/24 08:10 08:04 07:56 WBC 15.1 H Hgb 14.6 D Hct 45.3 Fasting Glucose 123 H 133 H Hemoglobin A1c % 5.9 6.0 Cholesterol 141 LDL Cholesterol, C alc 87 PSA Screen Urine Microalbumin 26.0 02/07/25 07:40 WBC 13.4 H Hgb 13.8 L Hct Fasting Glucose 131 H Hemoglobin A1c % Cholesterol LDL Cholesterol, C alc 79 PSA Screen 0.45 Urine Microalbumin 739.0 [facility] Medical History (Updated 03/02/25 @ 11:26 by Rafa Neal PA-C) Morbid obesity Bronchitis Nicotine dependence, cigarettes, uncomplicated Submandibular lymphadenopathy Dyspnea on exertion Pulmonary nodule Tubular adenoma of colon Back pain ALIN (obstructive sleep apnea) Low serum testosterone HLD (hyperlipidemia) HTN (hypertension) Hypogonadism male Erectile disorder due to medical condition in male COPD (chronic obstructive pulmonary disease) Surgical History History of colonoscopy Social History Household Members: None Housing: Condominium Alcohol intake: current Alcohol intake frequency: does not drink Patient Tobacco Use Status: Current everyday Tobacco user Tobacco use type: Cigarette Cigarette Packs Per Day: 1 Cigarettes Per Day: 18 Years Smoked: 45 e-Cigarette/Vaping Use: Never Used Second Hand Smoke Exposure: Yes service: No Current occupational 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 (Cane) Hearing needs: No Vision needs: Yes (Reading glasses) Questionnaire Thrive Questionnaire Date Thrive assessed: 10/24/24 I am a: Patient What is your living situation today?: I have a steady place to live Within the past 12 months, did the food you bought not last and you didn't have the money to get more?: Never true Within the past 12 months, did you worry whether your food would run out before you got money to buy more?: Often true Do you have trouble paying for medicines?: No Do you have trouble getting transportation to medical appointments?: No Do you have trouble paying your heating and electricity bill?: No Do you have trouble taking care of your child, family member or friend?: I choose not to answer this question Do you have trouble with day-to-day activities such as bathing, preparing meals, shopping, managing finances, etc.?: No Are you currently unemployed and looking for a job?: No Are you interested in more education?: No Please select the resources that you would like help with: None Currently or been in a relationship where the following occur: No concerns reported THRIVE Score: 1 AUDIT C Alcohol Use Questionnaire (AUDIT-C) 3. How often do you have six or more drinks on one occasion?: Never Total Score: 0 MATEO-7 AMB Questionnaire MATEO-7 Date MATEO - 7 assessed: 10/31/24 Source: Developed by Drs. Eh Sosa, Bruna Byers, Bryan Bell and colleagues, with an educational aruna from [employer]. Review of Systems Const Denies headache(s) Eyes Denies loss of vision ENT Denies vertigo, Denies dizziness, Denies headache(s) and Denies sore throat Card Denies chest pain, Denies leg edema and Denies lightheadedness Resp Reports excessive phlegm production and Reports wheezing GI Denies abdominal pain, Denies melena, Denies constipation, Denies diarrhea and Denies vomiting Denies dysuria, Denies urinary frequency and Denies urinary urgency Musc Denies arthralgias, Denies joint swelling, Denies numbness and Denies tingling Neuro Denies Abnormal speech present, Denies behavioral changes, Denies vertigo, Denies dizziness, Denies headache(s), Denies loss of vision, Denies memory loss, Denies numbness and Denies tingling Psych Denies anxiety, Denies behavioral changes, Denies depression, Denies memory loss and Denies panic attacks Paulino/Lymph Denies easy bleeding and Denies easy bruising Aller/Immun Reports wheezing Physical exam (Primary Care) Vital Signs: Last Vital Signs Temp 97.3 F 03/02/25 10:52 Pulse 79 03/02/25 10:52 BP 126/74 03/02/25 10:52 Pulse Ox 93 03/02/25 10:52 Oxygen Delivery Method Room Air 03/02/25 10:52 BMI result Body Mass Index 46.9 BMI Assessment/Plan discussion: High BMI High, discussed plan: lifestyle, weight reduction, dietary and physical activity Tobacco/Smoking Status: Tobacco use Status Tobacco use date assessed 03/02/25 03/02/25 10:56 Patient Tobacco Use Status Current everyday Tobacco 03/02/25 10:58 Tobacco use type Cigarette 03/02/25 10:58 e-Cigarette/Vaping Use Never Used 03/02/25 10:58 Thrive Assessment: Date of Thrive Assessment Date Thrive assessed 10/24/24 03/02/25 10:56 Currently or been in a relationship where the following occur: No concerns reported Const General: healthy appearing, no acute distress, alert and awake Nutritional Appearance: well nourished Orientation/consciousness: oriented to person, oriented to place and oriented to time HENMT Ears: TM's normal bilaterally General nose exam: Normal nasal mucous membranes and turbinates present Eyes Conjunctivae: conjunctivae normal Sclerae: sclerae normal Pupils: Equal, round and reactive pupils present Neck Neck: Yes no lymphadenopathy and Yes no JVD Thyroid: Thyroid normal Carotids: no bruits Resp Other: RHONCHI SOME RALES NOTED ON PULMONARY EXAM TODAY Effort & Inspection: normal respiratory effort and not tachypneic Auscultation: no crackles, rales, rhonchi and no wheezes Cardio Rate: regular rate Rhythm: regular rhythm Heart sounds: no murmurs and normal S1 and S2 GI Palpation (GI): Soft to palpation, nontender, no hepatomegaly and no splenomegaly Auscultation: normal bowel sounds Skin General skin exam: no rashes or lesions noted and dry skin Neuro General: oriented to person, oriented to place and oriented to time Cranial nerves: Yes Equal, round and reactive pupils present Speech: No Abnormal speech present Gait exam (Neuro): Normal gait present Motor exam (neuro): no tremor noted Extrem Right upper extremity: full ROM Left upper extremity: full ROM Right lower extremity: full ROM; no edema Left lower extremity: full ROM; no edema Psych Mental Status: mental status grossly normal Speech and movement: Normal speech and movement present Affect: normal affect Attitude: cooperative Thought process: Normal thought process present Coding Level of Care Code Est Pt Level 4 (20582) Diagnoses Impaired glucose metabolism R73.09 Centrilobular emphysema J43.2 COPD type: emphysema Emphysema type: centrilobular ALIN (obstructive sleep apnea) G47.33 Personal history of nicotine dependence Z87.891 Primary hypertension I10 Hypertension type: primary hypertension Mixed hyperlipidemia E78.2 Hyperlipidemia type: mixed hyperlipidemia Class 3 obesity E66.813 Microalbuminuria R80.9 Assessment & Plan Assessment & Plan (1) Impaired glucose metabolism: Code(s): R73.09 - Other abnormal glucose Category: Medical Plan: Patient's most recent labs showing elevated fasting blood sugar 130, A1c is at 6.0. He will continue metformin at this time and work on better eating habits. Goal A1c is to remain below 6.5 (2) COPD (chronic obstructive pulmonary disease): Comment: Severe COPD - improved Code(s): J44.9 - Chronic obstructive pulmonary disease, unspecified Category: Medical Qualifiers: COPD type: emphysema Emphysema type: centrilobular Qualified Code(s): J43.2 - Centrilobular emphysema Plan: Patient does have a slight productive cough, will supply patient with the azithromycin in case him on exacerbation. Continue Trelegy Ellipta 1 inhalation daily. Ventolin HFA 2 puffs Q 4-6 hours p.r.n.. Theophylline ER 300 mg b.i.d.. (3) ALIN (obstructive sleep apnea): Comment: (Severe ALIN - Dx 10/10/10 - RDI 72.6 - compliant with CPAP) Code(s): G47.33 - Obstructive sleep apnea (adult) (pediatric) Category: Medical Plan: Patient followed by pulmonology. Commended for good compliance and advised to keep on using the CPAP every night regularly. (4) Personal history of nicotine dependence: Code(s): Z87.891 - Personal history of nicotine dependence Category: Medical Plan: Talked to him about smoking once again. Stressed that he needs to quit smoking or at least cut down the number of cigarettes He finds it hard to cut down the number of cigarettes but he promises that he will do his best. of note he is reports he has coming up with a plan to stopped smoking. He is not interested in med or nicotine replacement (5) HTN (hypertension): Code(s): I10 - Essential (primary) hypertension Category: Medical Qualifiers: Hypertension type: primary hypertension Qualified Code(s): I10 - Essential (primary) hypertension Plan: Patient's blood pressure acceptable today in office. Will continue current dose of lisinopril with goal blood pressure to be below 140/90 (6) HLD (hyperlipidemia): Code(s): E78.5 - Hyperlipidemia, unspecified Category: Medical Qualifiers: Hyperlipidemia type: mixed hyperlipidemia Qualified Code(s): E78.2 - Mixed hyperlipidemia Plan: Patient's most recent lipid panel showing excellent control of his total cholesterol and LDL. He continues on atorvastatin 40 mg with good effect. Goal LDL is to remain below 100 (7) Class 3 obesity: Code(s): E66.813 - Obesity, class 3 Category: Medical Plan: Patient does understand his BMI is over 40 and will work trying to be more physically active and adapting to better eating habits to reduce his weight. Again we did discuss GLP 1 to help him with weight reduction and his obstructive sleep apnea. He is considering this at this time. (8) Microalbuminuria: Code(s): R80.9 - Proteinuria, unspecified Category: Medical Plan: Patient's recent my care of a new significantly elevated. Will recheck before next office visit now if elevated will consider Nephrology evaluation Orders: Orders Microalbumin, Random (w Creat) Today I10 - Essential (primary) hypertension Comprehensive [place]. Panel Fast Today I10 - Essential (primary) hypertension Complete Blood Count no Diff Today E78.2 - Mixed hyperlipidemia Prostate Specific Antigen Scr Today E29.1 - Testicular hypofunction, Z12.5 - Encounter for screening for malignant neoplasm of prostate Hemoglobin A1c Today R73.09 - Other abnormal glucose Lipid Panel Today E78.2 - Mixed hyperlipidemia Testosterone, Free/Total Today E29.1 - Testicular hypofunction Medications: New azithromycin For 250 mg dose pack: take 500 mg today (day 1), then 250 mg for 4 days (days 2-5) PO 6 tabs 0RF J43.2 - Centrilobular emphysema Changed From montelukast 10 mg PO DAILY 30 tabs 0RF J43.2 - Centrilobular emphysema To montelukast 10 mg PO DAILY 90 tabs 1RF 90 days J43.2 - Centrilobular emphysema From metformin ER 500 mg PO DAILY E66.01 - Morbid (severe) obesity due to excess calories, R73.09 - Other abnormal glucose To metformin ER 500 mg PO DAILY 90 tabs 1RF 90 days E66.01 - Morbid (severe) obesity due to excess calories, R73.09 - Other abnormal glucose From lisinopril 10 mg PO DAILY 30 tabs 0RF I10 - Essential (primary) hypertension To lisinopril 10 mg PO DAILY 90 tabs 1RF 90 days I10 - Essential (primary) hypertension From atorvastatin 10 mg PO DAILY 30 tabs 0RF E78.2 - Mixed hyperlipidemia To atorvastatin 10 mg PO DAILY 90 tabs 1RF 90 days E78.2 - Mixed hyperlipidemia Patient Instructions: Goal: Blood pressure to remain below 140/90, A1c to remain below 6.5. STOPPED SMOKING!! Barriers: COPD, Adherence to physical activity and healthy eating habits
[2025-03-02 10:52] VITALS: BP 126/74; PULSE 79; TEMP 36.3; O2SAT 93; BMI 46.9
--- OUTSIDE RECORDS SUMMARY | 2025-03-02 12:37 | XMS_ITS | Patient Health Record ---
Author Organization [facility] Address [address] [place] [address] Care Team Providers Care Block Saw Operator Name Role Phone Luis (RETIRED) David STEELE Primary Care Provider Unavailable Eh Parra Unavailable [phone] Allergies No Known Allergies Reason For Referral No Information Medications Medication SIG (Take, Route, Frequency, Duration) Notes Start Date End Date Status CoQ-10 Active Aspirin Adult Low Dose 81 MG 1 tablet Orally Once a day for 30 day(s) Active Turmeric Active Apple Cider Vinegar 500 MG as directed Orally Active [place] 3-6-9 Complex - as directed Orally Active [...] Problem Status W/U Status Risk Notes Problem 923212910 Encounter for screening for malignant neoplasm of colon (Z12.11) Active confirmed Problem [id number] History of adenomatous polyp of colon (Z86.010) Active confirmed Problem Screening for malignant neoplasm of rectum (549725057) Encounter for screening for malignant neoplasm of rectum (Z12.12) Active confirmed Problem 93379495 Preprocedural examination (Z01.818) Active confirmed Problem 810044986 Fatty liver (K76.0) Active confirmed Problem 59944851 Liver fibrosis (K74.0) Active confirmed Problem 53357809 Liver fibrosis (K74.00) Active confirmed Plan Of Treatment Pending Test Test Name Order Date LIVER PROFILE 07/15/2018 CBC w DIFF 07/15/2018 PROTHROMBIN TIME (PT, INR) 07/15/2018 ALPHA-FETOPROTEIN,TUMOR MARKER 9 Future Test Test Name Order Date COLONOSCOPY 08/28/2015 Insurance Providers Payer Name Payer Address Payer Phone Subscriber Number Group Number Insured Name Patient Relationship to Insured Coverage Start Date Coverage End Date [facility] [address] [place], [place] [id number] RACHAEL MURO Self - patient is the insured Medical (General) History Medical History History ICD Code Hypertension Denies DE,DM,CVA,renal disease COPD Sleep apnea-uses a CPAP mask [...]
== END 2025-03-02 11:28 | disposition home or self-care (01) ==
LOC: HO.HMCH 10:48
PROVIDERS: PCP Physician Assistant; Visit Provider Physician Assistant
DX: R73.09 Other abnormal glucose (principal); J43.2 Centrilobular emphysema; E66.813 Obesity, class 3; Z68.42 Body mass index [BMI] 45.0-49.9, adult; G47.33 Obstructive sleep apnea (adult) (pediatric); Z87.891 Personal history of nicotine dependence; I10 Essential (primary) hypertension; E78.2 Mixed hyperlipidemia; R80.9 Proteinuria, unspecified

== ENCOUNTER → 2025-03-02 10:47 | Outpatient (BNVA) | payer MEDICARE, SELFPAY | PROVIDERS: PCP Physician Assistant; Visit Provider Physician Assistant | DX: I10 Essential (primary) hypertension (principal); J44.9 Chronic obstructive pulmonary disease, unspecified; G47.33 Obstructive sleep apnea (adult) (pediatric); R73.01 Impaired fasting glucose; D72.829 Elevated white blood cell count, unspecified; R73.09 Other abnormal glucose; J43.2 Centrilobular emphysema; E78.2 Mixed hyperlipidemia; E66.813 Obesity, class 3; E66.01 Morbid (severe) obesity due to excess calories; R80.9 Proteinuria, unspecified; E29.1 Testicular hypofunction; Z87.891 Personal history of nicotine dependence; Z99.89 Dependence on other enabling machines and devices | CPT/HCPCS: 99212 ==

== ENCOUNTER 2025-04-19 11:13 | Outpatient (AMB) | payer MEDICARE, SELFPAY ==
--- NOTE | 2025-04-19 11:25 | MHC.OFFVIS ---
Vital Signs 04/19/25 11:26 Height 5 ft 9 in Weight 330 lb 11.094 oz BMI 48.8 BP 130/72 Blood Pressure Location Lt brachial Position Sitting Pulse 80 Pulse Source Pulse Oximeter Pulse Oximetry (%) 96 Oxygen Delivery Method Room Air Intake Visit Reasons: Obstructive sleep apnea Intake Note: pt is here for follow up of ALIN and HE QUIT SMOKING!! since 04/07/25. using cpap nightly, some production with cough Natural Resource Officer Required: No Employment Service Specialist: Employment Service Specialist offered & declined Allergies No Known Allergies (No Known Allergies*) Allergy (Verified 04/19/25 11:38) Medication List - Last Reconciled 04/19/25 by Hazel Peters MD albuterol sulfate 90 mcg/actuation (Ventolin HFA) 2 puffs inhalation Q6H PRN apple cider vinegar 500 mg PO DAILY aspirin 81 mg PO DAILY atorvastatin 10 mg PO DAILY 90 days clotrimazole 10 mg mucous membrane TID PRN fish,bora,flax oils-om3,6,9no1 400-400-400 mg (Triple [place] 3-6-9) 1 cap PO DAILY hjcqnsczlte-qrrdvylcn-ihxfghgj 200-62.5-25 mcg (Trelegy Ellipta) 1 inh inhalation DAILY guaifenesin ER (Mucinex) 600 mg PO BID lisinopril 10 mg PO DAILY 90 days metformin ER 500 mg PO DAILY 90 days montelukast 10 mg PO DAILY 90 days multivitamin (Daily Multi-Vitamin tablet) 1 tab PO DAILY nystatin 5 mL PO TID PRN sildenafil 100 mg PO DAILY PRN theophylline ER 300 mg PO Q12H Do you need a note to return to daycare/school/sports/work: No HPI HPI Obstructive sleep apnea: Details: OSMAN IS HERE FOR 4 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 FOR HIS COPD, SMOKING, ALIN, AND CHRONIC OBESITY. HE IS HAPPY TO REPORT THAT HE FINALLY QUIT SMOKING SINCE 2 WEEKS AGO. HE IS FIGHTING TO STAY FREE OF SMOKING. HAS STARTED EATING LITTLE BIT MORE AND SO HAS PUT ON ABOUT 10 LB OF WEIGHT. BREATHING IS WELL EXCEPT WHEN HE WALKS AROUND HE GETS SHORT OF BREATH. USES HIS CPAP VERY REGULARLY EVERY NIGHT AND SLEEPS BETWEEN 6-7 HOURS PER NIGHT. [facility] Medical History Morbid obesity Bronchitis Nicotine dependence, cigarettes, uncomplicated Submandibular lymphadenopathy Dyspnea on exertion Pulmonary nodule Tubular adenoma of colon Back pain ALIN (obstructive sleep apnea) Low serum testosterone HLD (hyperlipidemia) HTN (hypertension) Hypogonadism male Erectile disorder due to medical condition in male COPD (chronic obstructive pulmonary disease) Surgical History History of colonoscopy Social History Household Members: None 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) Hearing needs: No Vision needs: Yes (Reading glasses) Review of Systems Const All systems reviewed & are unremarkable except as noted in HPI and below Eyes Reports no additional complaints ENT Reports nasal congestion (Mild) Card Denies chest pain, Denies irregular heart rhythm, Reports leg edema (Only mild, to words the afternoon) and Reports dyspnea on exertion (Mild to moderate) Resp Reports as per HPI and Reports dyspnea on exertion (Mild to moderate) GI Reports no additional complaints Reports no additional complaints Musc Reports back pain and Reports arthralgias Skin/Breast Reports system reviewed and no additional complaints, except as documented Neuro Reports no additional complaints Psych Reports no additional complaints Physical Exam Vital Signs: Last Vital Signs Pulse 80 04/19/25 11:26 BP 130/72 04/19/25 11:26 Pulse Ox 96 04/19/25 11:26 Oxygen Delivery Method Room Air 04/19/25 11:26 BMI result Body Mass Index 48.8 Const General: comfortable, no acute distress, alert and awake Orientation/consciousness: patient oriented x3 HEENT Other: He is grossly overweight with a round face Head: Yes normal to inspection General nose exam: No nasal polyps present and No nasal discharge present Face and sinus: Yes sinuses nontender Mouth: oropharynx normal (No white spots but erythema lt . side of pharynx .) Throat: No posterior oropharynx normal (Very narrow and crowded, Mallampati class 4) Eyes General: appearance normal, both eyes and all related structures Neck Neck: Yes normal visual inspection, Yes no lymphadenopathy (Left submandibular gland back to normal size), Yes trachea midline, Yes no JVD and Yes other (Extremely obese) Thyroid: Thyroid normal Chest Chest palpation & inspection: normal inspection of the chest, normal palpation of entire chest wall and no tenderness Resp Other: Percussion note is barely perceptible. Breath sounds are distant especially over the basilar areas. No wheezes or crepitations are heard today. Cardio Palpation: PMI not normal (Not palpable) Rate: regular rate Rhythm: regular rhythm Heart sounds: no gallops and no murmurs GI Palpation (GI): Soft to palpation, nontender, No hepatosplenomegaly present, no masses and Other GI palpation findings present (Grossly obese and protuberant) Auscultation: normal bowel sounds Back/Spine/Pelvis Thoracic/Lumbar Spine: thoracic and lumbar spine normal to inspection and thoraco-lumbar ROM limited Skin General skin exam: no rashes or lesions noted Neuro General: patient oriented x3 and no focal motor deficits Cranial nerves: Yes CN's II-XII intact bilaterally Extrem General: Yes normal to inspection, No no joint enlargement (Knees are enlarged and somewhat tender), Yes no clubbing, cyanosis or edema and Yes no calf tenderness Psych Appearance: grossly normal and well kempt Speech and movement: Normal speech and movement present Results Reviewed Results Reviewed: COMPLIANCE REPORT IS REVIEWED AND HE HAS USED THE CPAP SO 30/30 NIGHTS, 100% OF THE NIGHTS. AVERAGE USE IT PER NIGHT. 6 HOURS 34 MINUTES CPAP 13. AND RESIDUAL AHI IS 0.1 Assessment & Plan Assessment & Plan (1) Morbid obesity: Comment: STILL REMAINS MORBIDLY OBESE CURRENT BMI 48.8, INCREASED MAY BE DUE TO QUITTING SMOKING. Code(s): E66.01 - Morbid (severe) obesity due to excess calories Category: Medical Plan: HAD A GOOD TALK ABOUT HIS WEIGHT AND HE KNOWS WHAT HE HAS TO DO, HE IS GOING TO TRY TO LIMIT HIS INTAKE ESPECIALLY THE CORDS HE CAN NOT WALK OR DO MUCH EXERCISE. (2) COPD (chronic obstructive pulmonary disease): Comment: Severe COPD - STABLE AND IMPROVED. LUNGS ARE CLEAR. Code(s): J44.9 - Chronic obstructive pulmonary disease, unspecified Category: Medical Qualifiers: COPD type: emphysema Emphysema type: centrilobular Qualified Code(s): J43.2 - Centrilobular emphysema Plan: CONTINUE TO USE TRELEGY ELLIPTA 1 INHALATION DAILY AND USE VENTOLIN HFA 2 PUFFS Q 6 HOURS P.R.N. ALSO CONTINUE MONTELUKAST 10 MG DAILY (3) ALIN (obstructive sleep apnea): Comment: (Severe ALIN - Dx 10/10/10 - RDI 72.6 - compliant with CPAP) HE HAS BEEN VERY COMPLIANT WITH USE OF CPAP AT NIGHT. HIS OBSTRUCTIVE SLEEP APNEA IS CONTROLLED VERY WELL WITH RESIDUAL AHI ONLY 0.1. Code(s): G47.33 - Obstructive sleep apnea (adult) (pediatric) Category: Medical Plan: COMMENDED FOR GOOD COMPLIANCE AND ADVISED TO KEEP ON USING THE CPAP EVERY NIGHT REGULARLY (4) Nicotine dependence, cigarettes, uncomplicated: Comment: (onset 15 - 08/02-1ppd x 41yrs, now 1/2ppd 35pyh). HE IS HAPPY TO REPORT THAT FINALLY HE HAS QUIT SMOKING COMPLETELY SINCE 2 WEEKS AGO. Code(s): F17.210 - Nicotine dependence, cigarettes, uncomplicated Category: Medical Plan: COMMENDED FOR GOOD COMPLIANCE AND ADVISED TO STAY AWAY FROM SMOKING MUCH POSSIBLE Coding Level of Care Code Est Pt Level 3 (36908) Diagnoses Morbid obesity E66.01 Centrilobular emphysema J43.2 COPD type: emphysema Emphysema type: centrilobular ALIN (obstructive sleep apnea) G47.33 Nicotine dependence, cigarettes, uncomplicated F17.210
[2025-04-19 11:26] VITALS: BP 130/72; PULSE 80; O2SAT 96; BMI 48.8
--- OUTSIDE RECORDS SUMMARY | 2025-04-19 22:10 | XMS_ITS | Patient Health Record ---
Author Organization [facility] Address [address] [place] [address] Care Team Providers Care Supervisor [employer] Name Role Phone Luis (RETIRED) David STEELE Primary Care Provider Unavailable Eh Parra Unavailable [phone] Allergies No Known Allergies Reason For Referral No Information Medications Medication SIG (Take, Route, Frequency, Duration) Notes Start Date End Date Status CoQ-10 Active Aspirin Adult Low Dose 81 MG Tablet Delayed Release 1 tablet Orally Once a day; Duration: 30 day(s) Active Turmeric Active Apple Cider Vinegar 500 MG Tablet as directed Orally Active [place] 3-6-9 Complex - Capsule as directed Orally Active AndroGel Pump Active ProAir HFA Active Atorvastatin Calcium Active Multivitamin Active Lisinopril Active Advair Diskus Active Spiriva HandiHaler A ctive Lysine Active Immunizations Vaccine Route Administration Date Status Comme nts Influenza Unknown 10/12/2018 Refused Influenza Unknown 03/09/2021 Administered Social History Tobacco Use: Social History Observation Description Date Details (start date - stop date) Current Smoker NA - NA Social History Tobacco Use: Social Info Question Answer Notes Tobacco Use/Smoking Patient is a current smoker How many cigarettes a day do you smoke? 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 Section Notes: Smoker; no alcohol. Smoker; no alcohol. Smoker; no alcohol. on nicotine patch; no alcoho l. on nicotine patch; no alcohol. 2020 smoker Problems Problem Type SNOMED Code ICD Code Onset Dates Problem Status W/U Status Risk Notes Problem Screening for malignant neoplasm of colon (508019765) Encounter for screening for malignant neoplasm of colon (Z12.11) Active confirmed Problem History of adenomatous polyp of colon (996906116) History of adenomatous polyp of colon (Z86.010) Active confirmed Problem Screening for malignant neoplasm of rectum (894520334) Encounter for screening for malignant neoplasm of rectum (Z12.12) Active confirmed Problem Preprocedural examination (408817048999525) Preprocedural examination (Z01.818) Active confirmed Problem Fatty liver (568289561) Fatty liver (K76.0) Active confirmed Problem Hepatic fibrosis (disorder) (52259216) Liver fibrosis (K74.0) Active confirmed Problem Hepatic fibrosis (disorder) (55629678) Liver fibrosis (K74.00) Active confirmed Plan Of [...] End Date [facility] [address] [place], [place] [id number] [phone] [id number] 5 RACHAEL MURO Self - patient is the insured Medical (General) History Medical History History ICD Code Hypertension Denies MS,DM,CVA,renal disease COPD Sleep apnea-uses a CPAP mask [...]
== END 2025-04-19 11:47 | disposition home or self-care (01) ==
LOC: HO.HPS 11:14
PROVIDERS: PCP Physician Assistant; Visit Provider Internal Medicine
DX: E66.01 Morbid (severe) obesity due to excess calories (principal); J43.2 Centrilobular emphysema; G47.33 Obstructive sleep apnea (adult) (pediatric); F17.210 Nicotine dependence, cigarettes, uncomplicated
CPT/HCPCS: 99213

== ENCOUNTER → 2025-04-19 11:13 | Outpatient (BNVA) | payer MEDICARE, SELFPAY | PROVIDERS: PCP Physician Assistant; Visit Provider Internal Medicine | DX: G47.33 Obstructive sleep apnea (adult) (pediatric) (principal); Z99.89 Dependence on other enabling machines and devices; F17.210 Nicotine dependence, cigarettes, uncomplicated; E66.01 Morbid (severe) obesity due to excess calories | CPT/HCPCS: 99212 ==

== ENCOUNTER 2025-05-23 12:52 | Outpatient (REF) | payer MEDICARE, SELFPAY ==
--- NOTE | ~2025-05-23 | CT_ITS ---
EXAMINATION: CT LUNG SCREENING HISTORY: F17.210 - Nicotine dependence, cigarettes, uncomplicated TECHNIQUE: Low dose axial images were obtained from the sternal notch to upper abdomen without IV contrast per standard departmental protocol. Sagittal and coronal reformatted images were also obtained and reviewed. One or more of the following techniques was used for dose reduction: Automated exposure control, adjustment of the mA and/or kV according to patient size, use of iterative reconstruction technique. DLP: 109 mGy-cm COMPARISON: Comparison is made to prior examinations dating back to 05/03/2021. FINDINGS: Lung nodules: There is a 2 mm nodule in the right upper lobe (series 5, image 57) without change. A 5 mm nodule in the left upper lobe is stable (series 5, image 36). A cluster of nodules in the inferior aspect of the left upper lobe (series 5, image 62) is also stable. No nodules are identified. Emphysema: mild Coronary Calcification: moderate Aortic Arch Calcification: moderate Potentially Significant Incidentals : none Additional Chest Findings: There is no pleural or pericardial effusion. No mediastinal or axillary lymphadenopathy is identified. Visualized upper abdomen: The visualized portions of the liver, spleen, and adrenals have an unremarkable unenhanced appearance. CT/CT lung screening IMPRESSION: No suspicious pulmonary nodules are identified. LUNG-RADS ASSESSMENT: Lung-RADS 2: Benign MANAGEMENT: Continue annual screening with LDCT in 12 months Category S: N/A Electronically signed by: Eh Henderson MD 05/23/2025 01:55 PM [facility]
--- OUTSIDE RECORDS SUMMARY | 2025-05-23 13:56 | XMS_ITS | Patient Health Record ---
Author Organization [facility] Address [address] [place] [address] Care Team Providers Care Manufacturing Leader Name Role Phone Luis (RETIRED) David STEELE Primary Care Provider Unavailable Eh Parra Unavailable [phone] Allergies No Known Allergies Reason For Referral No Information Medications Medication SIG (Take, Route, Frequency, Duration) Notes Start Date End Date Status CoQ-10 Active Aspirin Adult Low Dose 81 MG Tablet Delayed Release 1 tablet Orally Once a day; Duration: 30 day(s) Active Turmeric Active Apple Cider Vinegar 500 MG Tablet as directed Orally Active [place] 3-6-9 Complex - Capsule as directed Orally [...] status: single 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 Section Notes: Smoker; no alcohol. Smoker; no alcohol. Smoker; no alcohol. on nicotine patch; no alcoho l. on nicotine patch; no alcohol. 2020 smoker Problems Problem Type SNOMED Code ICD Code Onset Dates Problem Status W/U Status Risk Notes Problem Screening for malignant neoplasm of colon (269541360) Encounter for screening for malignant neoplasm of colon (Z12.11) Active confirmed Problem History of adenomatous polyp of colon (454092307) History of adenomatous polyp of colon (Z86.010) Active confirmed Problem Screening for malignant neoplasm of rectum (366244210) Encounter for screening for malignant neoplasm of rectum (Z12.12) Active confirmed Problem Preprocedural examination (725466111299861) Preprocedural examination (Z01.818) Active confirmed Problem Fatty liver (218864055) Fatty liver (K76.0) Active confirmed Problem Hepatic fibrosis (disorder) (02988942) Liver fibrosis (K74.0) Active confirmed Problem Hepatic fibrosis (disorder) (66761696) Liver fibrosis (K74.00) Active confirmed Plan Of Treatment Pending Test Test Name Order Date LIVER PROFILE 07/15/2018 CBC w DIFF 07/15/2018 PROTHROMBIN TIME (PT, INR) 07/15/2018 ALPHA-FETOPROTEIN,TUMOR MARKER 9 Future Test Test Name Order Date COLONOSCOPY 08/28/2015 Insurance Providers Payer Name Payer Address Payer Phone Subscriber Number Group Number Insured Name Patient Relationship to Insured Coverage Start Date Coverage End Date [facility] [address] [place], [place] [phone] [id number] RACHAEL MURO Self - patient is the insured Medical (General) History Medical History History ICD Code Hypertension Denies [place],DM,CVA,renal disease COPD Sleep apnea-uses a CPAP mask [...]
== END 2025-05-23 12:53 | disposition home or self-care (01) ==
LOC: HO.CT 12:52
PROVIDERS: PCP Physician Assistant; Referring Provider Internal Medicine; Visit Provider Physician Assistant Medical
DX: F17.210 Nicotine dependence, cigarettes, uncomplicated (principal)
CPT/HCPCS: 71271

== ENCOUNTER → 2025-05-23 12:54 | Outpatient (BNV) | payer MEDICARE, SELFPAY | PROVIDERS: PCP Physician Assistant; Referring Provider Internal Medicine; Visit Provider Radiology Diagnostic Radiology | DX: Z12.2 Encounter for screening for malignant neoplasm of respiratory organs (principal); Z87.891 Personal history of nicotine dependence | CPT/HCPCS: 71271 ==